=== PATIENT | female | born 1950 | race Caucasian/White ===

== ENCOUNTER → 2018-05-14 20:54 | Outpatient (REF) | payer MEDICARE, MEDICAID, SELFPAY ==
[2018-05-14 21:41] LABS: Absolute Basophil Count 0.06 k/cumm (0.0-0.2); Absolute Lymphocyte Count 1.84 k/cumm (1.2-3.4); Absolute Monocyte Count 0.78 k/cumm (0.11-0.7); Absolute Neutrophil Count 2.41 k/cumm (1.2-6.7); Basophils % 1.1; Eosinophils % 8.9; HCT 32.3 % (36.0-46.0); Lymphocytes % 32.9; Mean Corp. HGB Concentration 34.1 g/dL (32.0-36.0); Mean Corpuscular Hemoglobin 28.4 pg (27.0-33.0); Mean Corpuscular Volume 83.2 fL (80-95); Mean Platelet Volume 13.7 fL (8.0-11.0); Neutrophils % 43.1; Platelet Count 249 x1000/uL (130-400); RBC 3.88 m/cumm (4.00-5.20); RBC Distribution Width 15.6 % (11.7-14.6); White Blood Cell Count 5.59 k/cumm (4.4-10.8)
[2018-05-14 21:53] LABS: ALT 12 U/L (12-78); AST 17 U/L (15-37); Albumin 3.2 g/dL (3.4-5.0); Alkaline Phosphatase 233 U/L (46-116); Anion Gap 8.5 mmol/L (3-11); BUN 18 mg/dL (7-18); Bilirubin, Total 0.3 mg/dL (0.2-1.0); CO2 26.5 mmol/L (21.0-32.0); CREATININE 1.53 mg/dL (0.55-1.02); Calcium 8.3 mg/dL (8.5-10.1); Chloride 97 mmol/L (98-107); Cholesterol 233 mg/dL (50-200); Estimated GFR 33.75 (mL/min/1.73m2); Glucose 77 mg/dL (70-100); HDL Cholesterol 60 mg/dL (40-60); LDL CHOLESTEROL 144 mg/dL (<100); Magnesium 0.9 mg/dL (1.8-2.4); Potassium 4.5 mmol/L (3.5-5.1); Sodium 132 mmol/L (136-145); Total Protein 7.5 g/dL (6.4-8.2); Triglyceride 104 mg/dL (30-150)
[2018-05-19 13:24] LABS: Fentanyl Interpretation Positive.; Fentanyl by LC-MS/MS 16.3 ng/mL; Norfentanyl by LC-MS/MS 195.9 ng/mL
== END ==
LOC: NCHCN 20:54
PROVIDERS: PCP Physician Assistant Medical; Visit Provider Physician Assistant Medical
DX: D64.9 Anemia, unspecified (principal); I10 Essential (primary) hypertension; E83.42 Hypomagnesemia; I42.8 Other cardiomyopathies
CPT/HCPCS: 80048; 80053; 80061; 83721; 80354; 83735; 85025

== ENCOUNTER 2018-06-05 01:59 | Outpatient (RCR) | payer MEDICARE, MEDICAID, SELFPAY ==
[2018-05-29] MEDS: Normal Saline Flush 10 ML SYR IVP (08:48)
[2018-05-29] MEDS: MAGNESIUM SULFATE 4 GM/100 ML BAG IVPB (08:48)
[2018-06-05] MEDS: MAGNESIUM SULFATE 4 GM/100 ML BAG IVPB (09:00)
[2018-06-05] MEDS: Normal Saline Flush 10 ML SYR IVP (09:00)
== END 2018-06-16 23:59 | disposition home or self-care (01) ==
LOC: INF 01:59
PROVIDERS: PCP Physician Assistant Medical; Visit Provider Family Medicine
DX: E83.42 Hypomagnesemia (principal)
CPT/HCPCS: 96365; 96366; J3475

== ENCOUNTER 2018-06-24 10:01 | Outpatient (REF) | payer MEDICARE, MEDICAID, SELFPAY ==
[2018-06-24 20:40] LABS: Magnesium 1.8 mg/dL (1.8-2.4)
== END 2018-06-24 10:21 ==
LOC: NCHCN 10:01
PROVIDERS: PCP Physician Assistant Medical; Visit Provider Physician Assistant Medical
DX: E83.42 Hypomagnesemia (principal)
CPT/HCPCS: 83735

== ENCOUNTER 2018-11-11 00:25 | Outpatient (CLI) | payer MEDICARE, MEDICAID, SELFPAY ==
--- NOTE | 2018-11-11 10:30 | MERGE_ITS ---
*[facility]* *[facility]* [address] [place] [address] Date of study: 11/11/2018 Transthoracic Echocardiography M-mode, complete 2D, complete spectral Doppler, and color Doppler *STUDY CONCLUSIONS* Summary: 1. Left ventricle: The cavity size was normal. The estimated ejection fraction was 35%. Diffuse hypokinesis. The study is not technically sufficient to allow evaluation of LV diastolic function (mitral rign prosthesis). 2. Mitral valve: An annular ring prosthesis was present. There was moderate regurgitation. 3. Left atrium: The atrium was moderately dilated. 4. Right ventricle: The cavity size was normal. Wall thickness was normal. Pacer wire or catheter noted in right ventricle. Systolic function was normal. 5. Atrial septum: No defect or patent foramen ovale was identified. 6. Tricuspid valve: There was moderate-severe regurgitation. 7. Pulmonary arteries: Pulmonary systolic pressure was in the range of 40mm Hg to 50mm Hg. 8. Inferior vena cava: The vessel was patent and normal in size. The respirophasic diameter changes were in the normal range (greater than or equal to 50%), consistent with normal central venous pressure. *PATIENT PRESENTATION* Height: 152.4cm ((60in) ) S/D Pressure: 118 / 76 Weight: 50.8kg ((111.8lb) ) BSA: 1.47m^2 Test start time: 10:35 AM. Test stop time: 11:30 AM. PERFORMING Unknown PERFORMING [facility] CONSULTING Paula Vazquez FITNESS AND WELLNESS COORDINATOR Naty Galvan, (R)(CT), RD ORDERING Arturo iRcketts REFERRING Arturo Ricketts Ilana *PROCEDURE DATA* Procedure information: The patient was identified by two identifiers. This study was interpreted by [facility]. Pertinent images and digital data are archived for permanent storage and are available for subsequent review. Comparison was made to the study of 11/08/2016. Study status: Routine. Transthoracic echocardiography. M-mode, complete 2D, complete spectral Doppler, and color Doppler. A Transthoracic Echocardiogram was performed. Scanning was performed from the parasternal, apical, subcostal, and suprasternal notch acoustic windows. Images were obtained using an [id number] cardiac ultrasound machine. Image quality was adequate. Study completion: The patient tolerated the procedure well. History: PMH: Non ischemic CM. I 42.8. s/p myr 2008. *CARDIAC ANATOMY* Left ventricle: The cavity size was normal. The estimated ejection fraction was 35%. Diffuse hypokinesis. The study is not technically sufficient to allow evaluation of LV diastolic function (mitral rign prosthesis). Aortic valve: Trileaflet. Doppler: There was no stenosis. There was no regurgitation. VTI ratio of LVOT to aortic valve: 0.56. Valve area (VTI): 1.9cm^2. Indexed valve area (VTI): 1.3cm^2/m^2. Peak velocity ratio of LVOT to aortic valve: 0.55. Valve area (Vmax): 1.9cm^2. Indexed valve area (Vmax): 1.3cm^2/m^2. Mean velocity ratio of LVOT to aortic valve: 0.51. Valve area (Vmean): 1.8cm^2. Indexed valve area (Vmean): 1.2cm^2/m^2. Mean gradient (S): 2.4mm Hg. Peak gradient (S): 3.7mm Hg. Aorta: Aortic root: The aortic root was normal in size. Ascending aorta: The ascending aorta was normal in size. Mitral valve: An annular ring prosthesis was present. Doppler: There was no evidence for stenosis. There was moderate regurgitation. Valve area by pressure half-time: 2.8cm^2. Indexed valve area by pressure half-time: 1.9cm^2/m^2. Peak gradient (D): 7.6mm Hg. Left atrium: The atrium was moderately dilated. Atrial septum: No defect or patent foramen ovale was identified. Right ventricle: The cavity size was normal. Wall thickness was normal. Pacer wire or catheter noted in right ventricle. Systolic function was normal. Pulmonic valve: Doppler: There was no evidence for stenosis. There was no significant regurgitation. Tricuspid valve: Doppler: There was moderate-severe regurgitation. Pulmonary artery: Poorly visualized. Pulmonary systolic pressure was in the range of 40mm Hg to 50mm Hg. Right atrium: The atrium was normal in size. Pacer wire or catheter noted in right atrium. Pericardium: There was no pericardial effusion. Systemic veins: Inferior vena cava: Not well visualized. The vessel was patent and normal in size. The respirophasic diameter changes were in the normal range (greater than or equal to 50%), consistent with normal central venous pressure. Baseline ECG: Paced rhythm. Measurements Left ventricle Value 11/08/2016 Reference LV ID, ED, PLAX 5.1 cm 5.5 3.5 - 6.0 LV ID, ES, PLAX (H) 4.2 cm 4.3 2.1 - 4.0 LV PW thickness, ED, PLAX 0.8 cm 0.9 LV end-diastolic volume, 71 ml 1-p A2C LV ejection fraction, 1-p 29 % 41 A2C LV end-diastolic volume, 65 ml 1-p A4C LV ejection fraction, 1-p 45 % 38 A4C Ventricular septum Value 11/08/2016 Reference IVS thickness, ED, PLAX 0.5 cm LVOT Value 11/08/2016 Reference LVOT ID, A-P 2.1 cm 2.3 LVOT area 3.4 cm^2 4 LVOT peak velocity, S 0.53 m/sec 0.79 LVOT mean velocity, S 0.39 m/sec LVOT VTI, S 10.6 cm 15.7 LVOT peak gradient, S 1.1 mm Hg LVOT mean gradient, S 0.7 mm Hg 1.6 Stroke volume (SV), LVOT 36 ml DP Stroke index (SV/bsa), 25 ml/m^2 LVOT DP Aortic valve Value 11/08/2016 Reference Aortic valve peak 1 m/sec velocity, S Aortic valve mean 0.75 m/sec velocity, S Aortic valve VTI, S 19.0 cm Aortic mean gradient, S 2.4 mm Hg 4 Aortic peak gradient, S 3.7 mm Hg 7 VTI ratio, LVOT/AV 0.56 Aortic valve area, VTI 1.9 cm^2 Velocity ratio, peak, 0.55 LVOT/AV Aortic valve area, peak 1.9 cm^2 velocity Velocity ratio, mean, 0.51 LVOT/AV Aortic valve area, mean 1.8 cm^2 velocity Aortic valve area/bsa, 1.2 cm^2/m^2 mean velocity Aorta Value 11/08/2016 Reference Aortic root ID, ED 3.2 cm Ascending aorta ID, A-P, S 3.1 cm 3.1 Left atrium Value 11/08/2016 Reference LA ID, A-P, ES 4.2 cm LA ID/bsa, A-P (H) 2.9 cm/m^2 <=2.2 LA area, ES, A4C 21.8 cm^2 22 8.8 - 23.4 LA area, ES, A2C 23 cm^2 25 LA volume/bsa, ES, 1-p A4C 50 ml/m^2 47 LA volume, ES, 2-p 78 ml LA volume/bsa, ES, 2-p 53 ml/m^2 LA/aortic root ratio 1.33 1.35 Mitral valve Value 11/08/2016 Reference Mitral E-wave peak 1.38 m/sec 1.36 velocity Mitral A-wave peak 0.82 m/sec 1.19 velocity Mitral deceleration time (H) 269 ms 150 - 230 Mitral pressure half-time 78 ms 115 Mitral peak gradient, D 7.6 mm Hg 7.4 Mitral E/A ratio, peak 1.68 1.14 Mitral valve area, PHT, DP 2.8 cm^2 Tricuspid valve Value 11/08/2016 Reference Tricuspid regurg peak 3.1 m/sec 3.1 velocity Tricuspid peak RV-RA 39.2 mm Hg 38.9 gradient Right atrium Value 11/08/2016 Reference RA area, ES, A4C 16.3 cm^2 16 8.3 - 19.5 Legend: (L) and (H) benja values outside specified reference range. I have personally reviewed the images and have reviewed and edited the reported findings. Electronically signed by Huy Read MD 11/11/2018 16:00
== END 2018-11-11 00:45 ==
PROVIDERS: PCP Physician Assistant Medical; Visit Provider Nurse Practitioner Family
DX: I48.2 Chronic atrial fibrillation (principal); I42.8 Other cardiomyopathies; I08.1 Rheumatic disorders of both mitral and tricuspid valves; Z95.2 Presence of prosthetic heart valve
CPT/HCPCS: 93306

== ENCOUNTER → 2018-11-15 10:39 | Outpatient (BNVA) | payer MEDICARE, MEDICAID, SELFPAY | PROVIDERS: PCP Physician Assistant Medical; Visit Provider Internal Medicine Cardiovascular Disease | DX: I50.22 Chronic systolic (congestive) heart failure (principal); I34.0 Nonrheumatic mitral (valve) insufficiency; I42.0 Dilated cardiomyopathy; Z45.02 Encounter for adjustment and management of automatic implantable cardiac defibrillator; Z95.2 Presence of prosthetic heart valve | CPT/HCPCS: 93282; 99214 ==

== ENCOUNTER 2018-11-29 01:54 | Outpatient (CLI) | payer MEDICARE, MEDICAID, SELFPAY ==
--- NOTE | 2018-11-29 10:44 | DI.RAD_ITS ---
SYMPTOM/DIAGNOSIS: RT GROIN PAIN, R10.31, THORACOLUMBAR VERTEBRAL COMPRESSION FRACTURES, T14.8 THORACIC SPINE: Comparison is made with chest xray dated 04/20/17. A pacemaker, valve prosthesis and sternal wires are seen. There is stable severe compression fractures with high density material consistent with vertebroplasty in the left T 5 and T 7. T 1 through T 4, T 6 and T 10 vertebral bodies show normal height. There is a question of increase in the compression fractures of T 8 and T 9. There has been slight interval increase in compression of T 12. There is a new moderate compression fracture of approximately 50% of T 11. L 1 now shows a 50% compression fracture. There is a stable mild L 2 compression fracture. L 3 appears intact. IMPRESSION: New compression fractures as well as interval worsening of degree of compression of multiple vertebral bodies. PELVIS AND RIGHT HIP: The hip joint spaces are well maintained. There is mild bilateral acetabular spurring. There are mild degenerative changes of the SI joints. IMPRESSION: Mild degenerative changes.
== END 2018-11-29 02:14 ==
PROVIDERS: PCP Physician Assistant Medical; Visit Provider Physician Assistant Medical
DX: R10.31 Right lower quadrant pain (principal); M25.551 Pain in right hip; M16.11 Unilateral primary osteoarthritis, right hip; Z95.0 Presence of cardiac pacemaker; Z95.2 Presence of prosthetic heart valve; M48.55XD Collapsed vertebra, not elsewhere classified, thoracolumbar region, subsequent encounter for fracture with routine healing
CPT/HCPCS: 72072; 73502

== ENCOUNTER 2019-02-07 15:16 | Outpatient (REF) | payer MEDICARE, MEDICAID, SELFPAY ==
[2019-02-07 19:20] LABS: Absolute Basophil Count 0.07 k/cumm (0.0-0.2); Absolute Eosinophil Count 0.54 k/cumm (0.0-0.7); Absolute Lymphocyte Count 2.06 k/cumm (1.2-3.4); Absolute Monocyte Count 0.72 k/cumm (0.11-0.7); Absolute Neutrophil Count 3.01 k/cumm (1.2-6.7); Basophils % 1.1; Eosinophils % 8.4; HCT 34.2 % (36.0-46.0); HGB 11.7 g/dL (12.0-15.5); Lymphocytes % 32.2; Mean Corp. HGB Concentration 34.2 g/dL (32.0-36.0); Mean Corpuscular Hemoglobin 29.1 pg (27.0-33.0); Mean Corpuscular Volume 85.1 fL (80-95); Mean Platelet Volume 14.2 fL (8.0-11.0); Monocytes % 11.3; Platelet Count 255 x1000/uL (130-400); RBC 4.02 m/cumm (4.00-5.20); RBC Distribution Width 15.9 % (11.7-14.6)
[2019-02-07 19:27] LABS: Anion Gap 13.9 mmol/L (3-11); BUN 28 mg/dL (7-18); CO2 25.1 mmol/L (21.0-32.0); CREATININE 1.79 mg/dL (0.55-1.02); Calcium 9.1 mg/dL (8.5-10.1); Chloride 97 mmol/L (98-107); Estimated GFR 28.08 (mL/min/1.73m2); Glucose 88 mg/dL (70-100); Magnesium 1.3 mg/dL (1.8-2.4); Potassium 4.5 mmol/L (3.5-5.1); Sodium 136 mmol/L (136-145)
== END 2019-02-07 15:36 ==
LOC: NCHCN 15:16
PROVIDERS: PCP Physician Assistant Medical; Visit Provider Physician Assistant Medical
DX: N18.3 Chronic kidney disease, stage 3 (moderate) (principal); E83.42 Hypomagnesemia
CPT/HCPCS: 80048; 83735; 85025

== ENCOUNTER → 2019-02-25 10:34 | Outpatient (BNVA) | payer MEDICARE, MEDICAID, SELFPAY | PROVIDERS: PCP Physician Assistant Medical; Visit Provider Nurse Practitioner Family | DX: R69 Illness, unspecified (principal) ==

== ENCOUNTER 2019-02-25 11:57 | Outpatient (CLI) | payer MEDICARE, MEDICAID, SELFPAY | END 2019-02-25 12:17 | PROVIDERS: PCP Physician Assistant Medical; Visit Provider Nurse Practitioner Family | DX: I50.22 Chronic systolic (congestive) heart failure (principal); I34.0 Nonrheumatic mitral (valve) insufficiency; I42.0 Dilated cardiomyopathy; Z45.02 Encounter for adjustment and management of automatic implantable cardiac defibrillator; Z95.2 Presence of prosthetic heart valve | CPT/HCPCS: 93282; 93005; 93010; 99213 ==

== ENCOUNTER → 2019-03-13 13:41 | Outpatient (BNVA) | payer MEDICARE, MEDICAID, SELFPAY | PROVIDERS: PCP Physician Assistant Medical; Visit Provider Internal Medicine Cardiovascular Disease | DX: I50.22 Chronic systolic (congestive) heart failure (principal); Z98.890 Other specified postprocedural states; I34.0 Nonrheumatic mitral (valve) insufficiency; I42.8 Other cardiomyopathies; N18.3 Chronic kidney disease, stage 3 (moderate); Z45.018 Encounter for adjustment and management of other part of cardiac pacemaker | CPT/HCPCS: 93282; 99213 ==

== ENCOUNTER 2019-03-18 10:15 | Outpatient (CLI) | payer MEDICARE, MEDICAID, SELFPAY ==
[2019-03-18 11:47] LABS: Anion Gap 8.6 mmol/L (3-11); BUN 31 mg/dL (7-18); CO2 27.4 mmol/L (21.0-32.0); CREATININE 1.78 mg/dL (0.55-1.02); Calcium 8.4 mg/dL (8.5-10.1); Chloride 96 mmol/L (98-107); Estimated GFR 28.26 (mL/min/1.73m2); Glucose 77 mg/dL (70-100); Potassium 4.9 mmol/L (3.5-5.1); Sodium 132 mmol/L (136-145)
== END 2019-03-18 10:35 ==
PROVIDERS: PCP Physician Assistant Medical; Visit Provider Physician Assistant Medical
DX: E83.42 Hypomagnesemia (principal); E87.1 Hypo-osmolality and hyponatremia; N18.3 Chronic kidney disease, stage 3 (moderate)
CPT/HCPCS: 36415; 80048; 83735

== ENCOUNTER 2019-04-03 01:29 | Outpatient (RCR) | payer MEDICARE, MEDICAID, SELFPAY ==
[2019-03-27] MEDS: Normal Saline Flush 10 ML SYR IVP (08:13)
[2019-03-27] MEDS: MAGNESIUM SULFATE 4 GM/100 ML BAG IVPB (08:13)
[2019-04-03] MEDS: Normal Saline Flush 10 ML SYR IVP (08:52)
[2019-04-03] MEDS: MAGNESIUM SULFATE 4 GM/100 ML BAG IVPB (08:52)
[2019-04-03 08:53] VITALS: BP 118/87; PULSE 70; RESP 18; TEMP 36.2
== END 2019-04-16 23:59 | disposition home or self-care (01) ==
LOC: INF 01:29
PROVIDERS: PCP Physician Assistant Medical; Visit Provider Internal Medicine
DX: E83.42 Hypomagnesemia (principal); E87.1 Hypo-osmolality and hyponatremia; N18.3 Chronic kidney disease, stage 3 (moderate)
CPT/HCPCS: 96365; 96366; J3475

== ENCOUNTER 2019-04-11 20:30 | Outpatient (REF) | payer MEDICARE, MEDICAID, SELFPAY ==
[2019-04-11 20:35] LABS: Anion Gap 10.8 mmol/L (3-11); BUN 26 mg/dL (7-18); CO2 26.2 mmol/L (21.0-32.0); CREATININE 1.84 mg/dL (0.55-1.02); Calcium 9.7 mg/dL (8.5-10.1); Chloride 97 mmol/L (98-107); Glucose 85 mg/dL (70-100); Magnesium 1.9 mg/dL (1.8-2.4); Potassium 4.7 mmol/L (3.5-5.1); Sodium 134 mmol/L (136-145)
== END 2019-04-11 20:50 ==
LOC: NCHCN 20:30
PROVIDERS: PCP Physician Assistant Medical; Visit Provider Physician Assistant Medical
DX: E83.42 Hypomagnesemia (principal); I10 Essential (primary) hypertension
CPT/HCPCS: 80048; 83735

== ENCOUNTER 2019-04-29 04:43 | Inpatient (IN) | payer MEDICARE, MEDICAID, SELFPAY ==
[2019-04-29] VITALS (10 sets, daily range): BP systolic 95–144; BP diastolic 65–97; PULSE 78–101; RESP 16–28; TEMP 36–36.9; O2SAT 95–100
--- NOTE | 2019-04-29 05:02 | DI.RAD_ITS ---
SYMPTOM/DIAGNOSIS: FALL, LT HIP PAIN SUPINE AP CHEST: 04/29 The heart is enlarged. There is a transvenous cardiac pacemaker in position. Apparent left atrial clamp again noted in place. Vertebroplasties again noted. Lungs are clear and well expanded. CONCLUSION: No evidence of acute change.
--- NOTE | 2019-04-29 05:02 | DI.RAD_ITS ---
SYMPTOM/DIAGNOSIS: FALL, LT PAIN LEFT HIP: 04/29/19 Two views were obtained. There is a comminuted intertrochanteric fracture of the femur with marked varus angulation. No additional fracture seen on these limited views.
--- NOTE | 2019-04-29 05:05 | ED.GENADUL_ITS ---
Discharge Plan Disposition Patient Disposition: [facility] INPATIENT Condition: Stable Discharge Details Chief Complaint: Orthopedic Clinical Impression: Closed intertrochanteric fracture of left hip Primary Care Provider: Paula Vazquez ED Provider: Jamie Muniz Home Meds and New Rx's Prescriptions: No Action carvedilol 6.25 mg tablet 6.25 mg PO BID 90 Days Qty: 180 RF: 3 magnesium oxide 400 MG tablet 400 mg PO BID Qty: 180 RF: 3 furosemide 20 MG tablet 20 mg PO DAILY RF: 0 aspirin [Adult Low Dose Aspirin] 81 MG tablet,delayed release (DR/EC) 81 mg PO DAILY RF: 0 duloxetine [Cymbalta] 30 MG capsule,delayed release(DR/EC) 30 mg PO DAILY RF: 0 docusate sodium [Colace] 100 MG capsule 100 mg PO BID PRN PRNRF: 0 cholecalciferol (vitamin D3) 1,000 UNITS tablet 1,000 units PO DAILY RF: 0 potassium chloride 10 MEQ tablet extended release 10 meq PO DAILY RF: 0 fentanyl [Duragesic] 50 MCG patch 72 hour 62 mcg Transdermal Q72H RF: 0 lisinopril 5 MG tablet 5 mg PO DAILY Qty: 0 RF: 0 cyclobenzaprine 10 MG tablet 5 - 10 mg PO HS MDD 5-10 PRNQty: 15 RF: 0 esomeprazole magnesium 40 mg Capsule,Delayed Release(Dr/Ec) 40 mg PO DAILY RF: 0 Medical Decision Making 68-year-old female presents from home with left hip pain after trip and fall getting up to go to the bathroom. 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 She arrives in moderate distress, with normal vital signs. Exam is concerning for left hip fracture. Patient given additional aliquots of analgesic and referred for x-ray which reveals L intertrochanteric hip fracture. Patient comfortable following parenteral analgesia. Discussed with Dr Sheldon and Dr Schaeffer and patient to be admitted. Lab Data Lab results reviewed: Yes I reviewed the patient's lab results. Laboratory Results - last 24 hr 04/29/19 04/29/19 04/29/19 05:04 05:04 05:04 WBC 7.66 RBC 3.44 L Hgb 9.9 L Hct 28.6 L MCV 83.1 MCH 28.8 MCHC 34.6 RDW 15.7 H Plt Count 222 MPV 13.1 H Immature Gran % 0.1 Neutrophils % 58.1 Lymphocytes % 26.8 Monocytes % 8.1 Eosinophils % 6.1 Basophils % 0.8 Absolute Neutrophils 4.45 Absolute Lymphocytes 2.05 Absolute Monocytes 0.62 Absolute Eosinophils 0.47 Absolute Basophils 0.06 PT 10.2 INR 1.0 APTT 24.5 Sodium 137 Potassium 3.9 Chloride 103 Carbon Dioxide 24.5 Anion Gap 9.5 BUN 19 H Creatinine 1.40 H Estimated GFR/1.73 m2 37.28 Glucose 103 H Calcium 8.2 L Total Bilirubin 0.2 AST 9 L ALT 7 L Alkaline Phosphatase 204 H Troponin I < 0.05 Total Protein 6.7 Albumin 2.7 L Urine Color Urine Clarity Urine pH Ur Specific [place] Urine Protein Urine Ketones Urine Blood Urine Nitrite Urine Bilirubin Urine Urobilinogen Ur Leukocyte Esterase Urine Glucose Patient ABO/Rh Antibody Screen 04/29/19 04/29/19 05:04 06:10 WBC RBC Hgb Hct MCV MCH MCHC RDW Plt Count MPV Immature Gran % Neutrophils % Lymphocytes % Monocytes % Eosinophils % Basophils % Absolute Neutrophils Absolute Lymphocytes Absolute Monocytes Absolute Eosinophils Absolute Basophils PT INR APTT Sodium Potassium Chloride Carbon Dioxide Anion Gap BUN Creatinine Estimated GFR/1.73 m2 Glucose Calcium Total Bilirubin AST ALT Alkaline Phosphatase Troponin I Total Protein Albumin Urine Color Yellow Urine Clarity Clear Urine pH 6.5 Ur Specific [place] 1.015 Urine Protein Negative Urine Ketones Negative Urine Blood Trace-intact H Urine Nitrite Negative Urine Bilirubin Negative Urine Urobilinogen 0.2 Ur Leukocyte Esterase Negative Urine Glucose Negative Patient ABO/Rh O Positive Antibody Screen Negative ECG Data Attestation: I personally reviewed and interpreted this ECG (s) as follows: Interpretation: Normal sinus rhythm with a rate of 77, the QRS is narrow, there is nonspecific ST segment flattening throughout. HPI General Mode of arrival: EMS . Date/Time Provider Initiated Documentation: 04/29/19 04:59 . Limitations to Documentation: no limitations . Information obtained by: patient and EMS . History of Present Illness 68 year old F presents to the emergency department with the chief complaint of Trip and fall at home, left hip pain, Quality is described as dull and constant, and is localized to the left and lower extremity. Patient reports no radiation. Patient started experiencing this minute(s) and it has been constant. No relieving factors improve symptom(s), No exacerbating factors reported . Patient notes no other symptoms.. Patient did receive the following treatments prior to arrival, other (Fentanyl en route with EMS) Related Data Home Medications Medication Instructions Recorded Confirmed aspirin [Adult Low Dose Aspirin] 81 mg PO DAILY 02/07/13 04/29/19 duloxetine [Cymbalta] 30 mg PO DAILY 01/01/15 04/29/19 docusate sodium [Colace] 100 mg PO BID PRN PRN 03/31/16 04/29/19 cholecalciferol (vitamin D3) 1,000 units PO DAILY 11/03/16 04/29/19 magnesium oxide 400 mg PO BID #180 tab-cap 11/04/16 04/29/19 potassium chloride 10 meq PO DAILY 11/11/16 03/13/19 fentanyl [Duragesic] 62 mcg TRANSDERMAL Q72H 11/13/16 04/29/19 lisinopril 5 mg PO DAILY #0 11/15/16 04/29/19 furosemide 20 mg PO DAILY tab-cap 03/27/18 04/29/19 carvedilol 6.25 mg tablet 6.25 mg PO BID 90 Days #180 tab 11/15/18 04/29/19 cyclobenzaprine 5 - 10 mg PO HS PRN #15 tab MDD 04/29/19 04/29/19 5-10 esomeprazole magnesium 40 mg PO DAILY 04/29/19 04/29/19 Previous Rx's Medication Instructions Recorded lisinopril 5 mg PO DAILY #0 11/15/16 carvedilol 6.25 mg tablet 6.25 mg PO BID 90 Days #180 tab 11/15/18 cyclobenzaprine 5 - 10 mg PO HS PRN #15 tab MDD 04/29/19 5-10 Allergies Allergy/AdvReac Type Severity Reaction Status Date / Time oxycodone Allergy Mild Unverified 04/29/19 05:35 aripiprazole [From Abilify] Allergy Unverified 03/13/19 13:54 codeine AdvReac Mild vomiting Unverified 03/13/19 13:54 acetaminophen [From Tylenol] AdvReac Unverified 03/13/19 13:54 General Stated Complaint: Orthopedic SHY: 3 Review of Systems Review of Systems Denies chest pain or palpitations. No other injury. 6 systems reviewed and otherwise negative [facility] Medical History Chronic systolic CHF (congestive heart failure) (Chronic) Dilated cardiomyopathy (Chronic) ICD (implantable cardioverter-defibrillator) in place (Chronic) Mitral regurgitation (Chronic) Surgical History History of mitral valve repair (Chronic) Social History Smoking/Tobacco Use Status: Current every day Alcohol Intake: former Drug use: Never Do you feel safe at home: Yes Do you feel safe in your relationship?: Yes Exam Narrative Exam Narrative: GEN: awake, alert, oriented 3. Pleasant, well groomed, interactive. HEAD: Normocephalic, atraumatic ENT: Mucous membranes moist, oropharynx unremarkable, External ear exam unremarkable EYES: PERRL, EOMI NECK: Full ROM, no CHRIS, no menigismus CHEST/RESP: Nontender, clear to auscultation bilateral, no wheeze/rhonchi/rales CARDIOVASCULAR: RRR, no murmur, rub alf. 2+ Rad pulse bilateral ABDOMEN: Soft, nontender, no mass. +Bowel sounds EXT: Left lower extremity held in flexion, tender overlying the lateral left hip and with movement. 1+ dorsalis pedis bilaterally, sensation intact. Neuro: Grossly normal neurologic exam, conversant, interactive. Psych: Speech fluent, thoughts congruent, affect normal Course Vital Signs Temperature 36.4 C L 04/29/19 04:46 Pulse 78 04/29/19 04:46 Respiratory Rate 16 04/29/19 04:46 Blood Pressure 122/87 04/29/19 04:46 Pulse Oximetry 95 04/29/19 04:46 Temperature 36.4 C L 04/29/19 04:46 Temperature Source Skin 04/29/19 04:46 Pulse 78 04/29/19 04:46 Respiratory Rate 16 04/29/19 04:46 Respiratory Effort Non-Labored 04/29/19 04:51 Blood Pressure 122/87 04/29/19 04:46 Blood Pressure Position Supine 04/29/19 04:46 Pulse Oximetry 95 04/29/19 04:46 Oxygen Delivery Method Room Air 04/29/19 04:46 Oxygen Flow Rate 0 04/29/19 04:46
[2019-04-29] MEDS: Normal Saline 1,000 ML 150 ML IV (05:20)
[2019-04-29] MEDS: HYDROmorphone 2 MG/ML VIAL 0.5 MG IVP ×2 (05:20→08:55)
[2019-04-29 05:32] LABS: Abs Immature Grans 0.01 k/cumm (0.0-0.09); Absolute Basophil Count 0.06 k/cumm (0.0-0.2); Absolute Eosinophil Count 0.47 k/cumm (0.0-0.7); Absolute Lymphocyte Count 2.05 k/cumm (1.2-3.4); Absolute Monocyte Count 0.62 k/cumm (0.11-0.7); Absolute Neutrophil Count 4.45 k/cumm (1.2-6.7); Basophils % 0.8; Eosinophils % 6.1; HCT 28.6 % (36.0-46.0); HGB 9.9 g/dL (12.0-15.5); Immature Grans % 0.1; Lymphocytes % 26.8; Mean Corp. HGB Concentration 34.6 g/dL (32.0-36.0); Mean Corpuscular Hemoglobin 28.8 pg (27.0-33.0); Mean Corpuscular Volume 83.1 fL (80-95); Mean Platelet Volume 13.1 fL (8.0-11.0); Monocytes % 8.1; Neutrophils % 58.1; Platelet Count 222 x1000/uL (130-400); RBC 3.44 m/cumm (4.00-5.20); RBC Distribution Width 15.7 % (11.7-14.6); White Blood Cell Count 7.66 k/cumm (4.4-10.8)
[2019-04-29] MEDS: HYDROmorphone 2 MG/ML VIAL (05:41)
[2019-04-29 05:42] LABS: PTT Activated 24.5 sec (21.0-31.4); Prothrombin Time 10.2 sec (9.3-11.0)
[2019-04-29 05:49] LABS: ALT 7 U/L (12-78); AST 9 U/L (15-37); Albumin 2.7 g/dL (3.4-5.0); Alkaline Phosphatase 204 U/L (46-116); Anion Gap 9.5 mmol/L (3-11); BUN 19 mg/dL (7-18); Bilirubin, Total 0.2 mg/dL (0.2-1.0); CO2 24.5 mmol/L (21.0-32.0); Calcium 8.2 mg/dL (8.5-10.1); Chloride 103 mmol/L (98-107); Estimated GFR 37.28 (mL/min/1.73m2); Glucose 103 mg/dL (70-100); Potassium 3.9 mmol/L (3.5-5.1); Sodium 137 mmol/L (136-145); Total Protein 6.7 g/dL (6.4-8.2); Troponin I < 0.05 ng/mL (0.00-0.06)
--- NOTE | 2019-04-29 06:15 | NUR.NOTE ---
Nursing Note: Patients fentanyl patches removed (50mcg and 12 mcg) from right upper arm and placed in waste witnessed by Yvonne YBARRA.
[2019-04-29 06:19] LABS: Bilirubin Negative (Negative); Blood Trace-intact (Negative); Clarity Clear (Clear); Glucose Negative (Negative); Ketones Negative (Negative); Leukocyte Esterase Negative (Negative); Nitrite Negative (Negative); Specific Gravity 1.015 (1.005-1.025); Urobilinogen 0.2 EU/dL (Up TO 0.2); pH 6.5 (5-8)
[2019-04-29 06:30] LABS: Bacteria Rare HPF (Negative); C & S Indicated? No; Casts Negative LPF (Negative); Crystals Negative HPF (Negative); Epithelial Cells Rare HPF (Negative); Mucus Negative (Negative); RBC 0-2 (0-2); WBC Negative HPF (0-5)
[2019-04-29] MEDS: fentaNYL 12 MCG PATCH TD (11:33)
[2019-04-29] MEDS: fentaNYL 50 MCG PATCH TD (11:33)
[2019-04-29 11:48] LABS: Creatine Kinase 37 U/L (26-192)
--- NOTE | 2019-04-29 12:51 | W.PM.HP.N ---
Date of service: 04/29/19 Time of Service: 12:52 Assessment and Plan (1) Closed left hip fracture: Current visit: Yes Status: Acute post mechanical fall. Patient is moderate to high risk for general anesthesia, but spinal anesthesia is reasonable. Planned for OR today. Pain control with home fentanyl patches and IV dilaudid. Provide IS. [place]. (2) Chronic systolic CHF (congestive heart failure): Current visit: No Status: Chronic S/p AICD. EF as above. I decreased fluid rate to 75 cc/hr. Monitor volume status carefully. I/O's/daily weights. (3) Osteoporosis: Current visit: Yes Status: Chronic Continue vitamin D supplementation Add calcium. (4) Mitral regurgitation: Current visit: No Status: Chronic Discussed with anesthesia - spinal anesthesia is preferred (5) Chronic kidney disease, stage 3: Current visit: No Status: Acute Monitor Cr/I/O's (6) DVT prophylaxis: Current visit: Yes Status: Acute Defer to orthopedics (7) Discharge planning issues: Current visit: Yes Status: Acute Full code History of Present Illness Chief Complaint: I fell and broke my hip Narrative: Ms Castillo is a 68 year old female with PMHx of dilated [employer]IC[employer])/chronic systolic CHF (last EF 25-30%), s/p AICD (last shock for VT/VF in 2017 in setting of hypomagnesemia), mitral regurgitaiton post Mitral valve repair, moderate to severe tricuspid regurgitation, moderate pulmonary hypertension, in addition to osteoporosis and CKD 3, who stepped onto a dog toy while returning to bed from the bathroom at 3 am this morning and fell backwards and onto her left side, hitting her head and hearing a crack in her leg. When she arrived to the ED, she was found to have a L femoral fracture. At this time, her pain is uncontrolled. Her head is not bothering her and she declined to have a CT of her head. States she hasn't had any chest pain, shortness of breath, palpitations, dizziness, blurred vision. Review of Systems Review of Systems 12 systems reviewed. Pertinent positives and negatives are as per HPI. [facility] Medical History (Updated 04/29/19 @ 13:26 by Jayashree Alaniz MD) Cardiomyopathy, nonischemic (Acute) Chronic kidney disease, stage 3 (Acute) Chronic systolic CHF (congestive heart failure) (Chronic) Compression fracture of lumbar vertebra (Acute) Dilated cardiomyopathy (Chronic) Mitral regurgitation (Chronic) Osteoporosis (Chronic) Surgical History (Updated 04/29/19 @ 13:11 by Jayashree Alaniz MD) History of mitral valve repair (Chronic) ICD (implantable cardioverter-defibrillator) in place (Chronic) Family History (Updated 04/29/19 @ 13:14 by Jayashree Alaniz MD) Mother Heart disease Brother Heart disease Maternal Uncle Heart disease Maternal Uncle Diabetes Father Hypertension Prostate cancer Social History (Updated 04/29/19 @ 13:15 by Jayashree Alaniz MD) Smoking/Tobacco Use Status: Former Tobacco Use Pack-years: 4 Tobacco: How many years used: 7 Alcohol Intake: former Drug use: Never Do you feel safe at home: Yes Do you feel safe in your relationship?: Yes Meds Home Medications Medication Instructions Recorded Confirmed Type aspirin [Adult Low Dose Aspirin] 81 mg PO DAILY 02/07/13 04/29/19 History duloxetine [Cymbalta] 30 mg PO DAILY 01/01/15 04/29/19 History docusate sodium [Colace] 100 mg PO BID PRN PRN 03/31/16 04/29/19 History cholecalciferol (vitamin D3) 1,000 units PO DAILY 11/03/16 04/29/19 History magnesium oxide 400 mg PO BID #180 tab-cap 11/04/16 04/29/19 History potassium chloride 10 meq PO DAILY 11/11/16 03/13/19 History fentanyl [Duragesic] 62 mcg TRANSDERMAL Q72H 11/13/16 04/29/19 History lisinopril 5 mg PO DAILY #0 11/15/16 04/29/19 Rx furosemide 20 mg PO DAILY tab-cap 03/27/18 04/29/19 History carvedilol 6.25 mg tablet 6.25 mg PO BID 90 Days #180 tab 11/15/18 04/29/19 Rx cyclobenzaprine 5 - 10 mg PO HS PRN #15 tab MDD 04/29/19 04/29/19 Rx 5-10 esomeprazole magnesium 40 mg PO DAILY 04/29/19 04/29/19 History Allergies Allergy/AdvReac Type Severity Reaction Status Date / Time oxycodone Allergy Mild Unverified 04/29/19 05:35 aripiprazole [From Abilify] Allergy Unverified 03/13/19 13:54 codeine AdvReac Mild vomiting Unverified 03/13/19 13:54 acetaminophen [From Tylenol] AdvReac Unverified 03/13/19 13:54 Exam Narrative Exam Narrative: General: very pleasant elderly female, appears to be in good spirits, A&Ox3, laying uncomfortably in bed Neuro: A&Ox3; L facial droop is her baseline, no focal deficits Psychiatric: appropriate speech pattern/content Skin: visible skin intact HEENT: Atraumatic, normocephalic, EOMI, dry MM, clear oropharynx, dentures, no submandibular or cervical lymphadenopathy, no goiter or JVD Heart: RRR, no m/r/g Lungs: CTAB GI: abdomen is soft, nontender, nondistended Extremities: no e/c/c; guarding L hip, +1 pedal pulses B Results Imaging Additional studies: CXR: No evidence of acute change. XR L hip: Two views were obtained. There is a comminuted intertrochanteric fracture of the femur with marked varus angulation. No additional fracture seen on these limited views. EKG: NSR, HR 77, nonspecific ST-T changes Labs : 04/29/19 05:04 04/29/19 05:04 Laboratory Results - last 24 hr 04/29/19 04/29/19 04/29/19 05:04 05:04 05:04 WBC 7.66 RBC 3.44 L Hgb 9.9 L Hct 28.6 L MCV 83.1 MCH 28.8 MCHC 34.6 RDW 15.7 H Plt Count 222 MPV 13.1 H Immature Gran % 0.1 Neutrophils % 58.1 Lymphocytes % 26.8 Monocytes % 8.1 Eosinophils % 6.1 Basophils % 0.8 Absolute Neutrophils 4.45 Absolute Lymphocytes 2.05 Absolute Monocytes 0.62 Absolute Eosinophils 0.47 Absolute Basophils 0.06 PT 10.2 INR 1.0 APTT 24.5 Sodium 137 Potassium 3.9 Chloride 103 Carbon Dioxide 24.5 Anion Gap 9.5 BUN 19 H Creatinine 1.40 H Estimated GFR/1.73 m2 37.28 Glucose 103 H Calcium 8.2 L Total Bilirubin 0.2 AST 9 L ALT 7 L Alkaline Phosphatase 204 H Creatine Kinase 37 Troponin I < 0.05 Total Protein 6.7 Albumin 2.7 L Urine Color Urine Clarity Urine pH Ur Specific [place] Urine Protein Urine Ketones Urine Blood Urine Nitrite Urine Bilirubin Urine Urobilinogen Ur Leukocyte Esterase Urine RBC Urine WBC Ur Epithelial Cells Urine Crystals Urine Bacteria Urine Casts Urine Mucus Ur Culture Indicated? Urine Glucose Patient ABO/Rh Antibody Screen 04/29/19 04/29/19 05:04 06:10 WBC RBC Hgb Hct MCV MCH MCHC RDW Plt Count MPV Immature Gran % Neutrophils % Lymphocytes % Monocytes % Eosinophils % Basophils % Absolute Neutrophils Absolute Lymphocytes Absolute Monocytes Absolute Eosinophils Absolute Basophils PT INR APTT Sodium Potassium Chloride Carbon Dioxide Anion Gap BUN Creatinine Estimated GFR/1.73 m2 Glucose Calcium Total Bilirubin AST ALT Alkaline Phosphatase Creatine Kinase Troponin I Total Protein Albumin Urine Color Yellow Urine Clarity Clear Urine pH 6.5 Ur Specific [place] 1.015 Urine Protein Negative Urine Ketones Negative Urine Blood Trace-intact H Urine Nitrite Negative Urine Bilirubin Negative Urine Urobilinogen 0.2 Ur Leukocyte Esterase Negative Urine RBC 0-2 Urine WBC Negative Ur Epithelial Cells Rare Urine Crystals Negative Urine Bacteria Rare Urine Casts Negative Urine Mucus Negative Ur Culture Indicated? No Urine Glucose Negative Patient ABO/Rh O Positive Antibody Screen Negative Last Vital Signs Temp 36.4 C L 04/29/19 04:46 Pulse 78 04/29/19 04:46 Resp 16 04/29/19 04:46 BP 122/87 04/29/19 04:46 Pulse Ox 95 04/29/19 04:46
[2019-04-29 13:05] LABS: Troponin I < 0.05 ng/mL (0.00-0.06)
--- NOTE | 2019-04-29 13:31 | DI.RAD_ITS ---
SYMPTOMS/DIAGNOSIS: LEFT HIP FX C-ARM FLUOROSCOPY OF THE LEFT HIP: Fluoroscopy Time: 95.7 Fluoroscopy was provided in the OR for Dr. Sheldon. Hardcopy images show placement of hardware for fracture fixation. The alignment appears anatomic.
[2019-04-29] MEDS: HYDROmorphone 2 MG/ML VIAL IVP ×2 (13:36→17:15)
[2019-04-29] MEDS: Lactated Ringers 1,000 ML 80 ML IV (14:25)
[2019-04-29] MEDS: Tranexamic Acid 1,000 MG/10 ML VIAL 1000 MG (16:22)
--- NOTE | 2019-04-29 17:48 | ROE_ITS ---
DATE OF PROCEDURE: April 29, 2019 PREOPERATIVE DIAGNOSIS: Intertrochanteric fracture, left femur. POSTOPERATIVE DIAGNOSIS: Intertrochanteric fracture, left femur. PROCEDURE: Open reduction and internal fixation of intertrochanteric fracture of the left femur usshama g trochanteric femoral nail device. ANESTHESIA: General, Donn Bragg CRNA SURGEON: Jamie Sheldon M.D. ACCELERATOR OPERATOR: Tino Sotelo INDICATIONS: This is a 68-year-old white female who tripped and fell in her home going to the [facility] early this morning, falling from a standing height onto her left hip. She was seen in the Emergen cy Room where x-rays revealed a displaced comminuted intertrochanteric fracture of the left femur. F racture pattern suggested that a trochanteric femoral nail device would be the best device for fixati on due to comminution of the greater trochanter. I recommended to the patient that she have her frac ture fixed to relieve her pain and prevent the complications of prolonged recumbency. The risks and complications of the procedure were explained to the patient in detail preoperatively. She wished to have me proceed as soon as possible to fix her hip fracture. She was preoperatively cleared by the hospitalist, Dr. Alaniz, and although an increased risk, was felt to be an acceptable risk for surgery . PROCEDURE: The patient was taken to the Operating Room in the afternoon on 04/29/19. A spinal anesth etic was attempted but was unsuccessful. She was therefore given a general anesthetic. Once good an esthesia was obtained, she was placed supine on the fracture table in single-leg traction on the left . The left lower extremity was prepped from pelvis to below the knee and draped in the usual sterile fashion. A longitudinal incision was made beginning just distal to the tip of the trochanter and extending pro ximally about four inches. Localization of the incision was determined with the help of the C-arm. The incision was carried down through the skin and subcu to the iliotibial band and abductor fascia. The IT band and abductor fascia were longitudinally incised. Blunt dissection with my finger was us ed to determine the tip of the greater trochanter. With the help of C-arm image intensification, the guide pin was placed at the tip of the trochanter and just medial to it. There was no resistance fr om the bone because of the comminution, and so I was actually able to place the guide pin by hand thr ough the fractured trochanter and down the shaft of the femur, distal to the lesser trochanter. A on e step reamer was placed over the guide pin and reaming was done for the proximal portion of the nail . A long guide pin was then placed down the femoral canal to the distal femur. The length of the pr oposed nail was determined with the help of the measuring device and the nail. A 360 mm long nail, 1 1 mm diameter was selected as the proper nail. Serial reaming was performed in 0.5 mm increments up to 13 mm. The insertional handle was then applied to the nail and the selected nail, 360 mm long, 11 mm diameter, was then placed by hand down the femoral canal. The C-arm was used to determine when t he nail was fully seated. The nail position was adjusted and using the outrigger guide on the insert ion handle, I made a stab wound on the skin and through the subcu and IT band and muscle directly to the femoral cortex. The drill sleeve was advanced until it contacted the lateral cortex. The positi on of the nail was adjusted so that the guide pin entered in the center of the femoral head on the AP view. I advanced the guide pin until it was within 10 mm of the subchondral bone of the femoral hea d. I then checked the lateral position and the guide pin was in the center of the femoral head on th e lateral position as well. I then used a cannulated reamer just to ream the lateral cortex. A saturnino ulated spiral blade, 90 mm, was selected after measuring length from the guide pin. The spiral blade was then inserted and impacted into place until it fully seated. The guide pin was removed. The sp iral blade was locked using a flexible screwdriver and after it was fully locked, I backed off a half turn to allow the spiral blade to slide. I then removed the outrigger device. C-arm image intensif ier final check on AP and lateral views shows the spiral blade in good position, fracture nicely redu dora. Once again I used the C-arm to make an incision over the distal locking screws. I was able to place one locking screw through the oblong hole in the distal plate using a freehand technique. A 40 mm lo cking bolt was selected. At this point tranexamic acid and saline was irrigated into all the incisio ns. The incisional margins were then infiltrated with 0.5% Marcaine with an epinephrine solution. T he stab wound for the distal locking screw was closed with simple interrupted #4-0 Nylon suture. Th e stab wound for the spiral blade and the incision for the nail was closed in layers. The IT band an d abductor fascia were approximated with interrupted [id number] sutures of #1 Vicryl suture mate rial. The subcu was approximated with interrupted #2-0 Vicryl sutures. The skin edges were approxim ated with skin veronica. The distal wound in the thigh was dressed with Xeroform gauze, sterile gauze 4x4's and wrapped with a 4-inch ASHWINI bandage for light compression. The proximal incisions were dres sed with Xeroform gauze, sterile gauze 4x4's, ABD pad and taped with paper tape. The patient tolerat ed the procedure well without complications. Her anesthesia was reversed without complication. Albina mated blood loss was 60 cc's. The patient was discharged to recovery in good condition.
[2019-04-29] MEDS: Ketorolac 15 MG/ML VIAL IVP (18:36)
[2019-04-29] MEDS: Normal Saline Flush 10 ML SYR IVP (18:37)
[2019-04-29] MEDS: Carvedilol 6.25 MG TAB PO (20:36)
[2019-04-29] MEDS: Calcium Carbonate 1.25 GM TAB PO (20:36)
[2019-04-29] MEDS: Magnesium Oxide 400 MG TAB PO (20:36)
[2019-04-29] MEDS: Mylanta Suspension 30 ML CUP PO (20:54)
[2019-04-30] VITALS (14 sets, daily range): BP systolic 94–129; BP diastolic 60–78; PULSE 75–104; RESP 16–20; TEMP 36.6–37.6; O2SAT 94–98
[2019-04-30] MEDS: Ketorolac 15 MG/ML VIAL IVP ×4 (01:00→17:54)
[2019-04-30] MEDS: Lactated Ringers 1,000 ML 100 ML IV (02:07)
[2019-04-30 07:26] LABS: Abs Immature Grans 0.01 k/cumm (0.0-0.09); Absolute Basophil Count 0.02 k/cumm (0.0-0.2); Absolute Eosinophil Count 0.01 k/cumm (0.0-0.7); Absolute Lymphocyte Count 1.62 k/cumm (1.2-3.4); Absolute Monocyte Count 1.14 k/cumm (0.11-0.7); Absolute Neutrophil Count 6.85 k/cumm (1.2-6.7); Basophils % 0.2; Eosinophils % 0.1; HCT 22.5 % (36.0-46.0); HGB 7.7 g/dL (12.0-15.5); Immature Grans % 0.1; Lymphocytes % 16.8; Mean Corp. HGB Concentration 34.2 g/dL (32.0-36.0); Mean Corpuscular Hemoglobin 28.5 pg (27.0-33.0); Mean Corpuscular Volume 83.3 fL (80-95); Mean Platelet Volume 13.3 fL (8.0-11.0); Monocytes % 11.8; Platelet Count 176 x1000/uL (130-400); RBC Distribution Width 15.1 % (11.7-14.6); White Blood Cell Count 9.65 k/cumm (4.4-10.8)
[2019-04-30 07:42] LABS: Anion Gap 7.8 mmol/L (3-11); BUN 18 mg/dL (7-18); CO2 26.2 mmol/L (21.0-32.0); CREATININE 1.18 mg/dL (0.55-1.02); Calcium 8.4 mg/dL (8.5-10.1); Chloride 104 mmol/L (98-107); Estimated GFR 45.42 (mL/min/1.73m2); Glucose 107 mg/dL (70-100); Magnesium 1.5 mg/dL (1.8-2.4); Potassium 4.3 mmol/L (3.5-5.1); Sodium 138 mmol/L (136-145)
[2019-04-30 07:45] LABS: Diff Comment RBC Morph Reviewed
[2019-04-30 07:46] LABS: Poikilocytes 2+
[2019-04-30] MEDS: Calcium Carbonate 1.25 GM TAB PO ×2 (07:51→20:29)
[2019-04-30] MEDS: Aspirin E.C. 81 MG TABEC PO (07:51)
[2019-04-30] MEDS: Magnesium Oxide 400 MG TAB PO ×2 (07:51→20:29)
[2019-04-30] MEDS: Cholecalciferol (Vitamin D3) 1,000 UNIT TAB 1000 UNITS PO (07:51)
[2019-04-30] MEDS: Carvedilol 6.25 MG TAB PO ×2 (07:51→20:29)
[2019-04-30] MEDS: Esomeprazole 40 MG CAPCR PO (07:51)
[2019-04-30] MEDS: DULoxetine 30 MG CAP PO (07:51)
[2019-04-30] MEDS: Lisinopril 5 MG TAB PO (07:51)
[2019-04-30] MEDS: HYDROmorphone 2 MG TAB PO (08:04)
--- NOTE | 2019-04-30 10:28 | W.PM.PROGNOT ---
Date of Service Date of service: 04/30/19 Time of Service: 10:29 Assessment and Plan (1) Closed left hip fracture: Current visit: Yes Status: Acute s/p ORIF, patient doing well following surgery (2) Chronic kidney disease, stage 3: Current visit: No Status: Acute Cr improved from yesterday, will hold further IVF given reduced EF and she is taking PO (3) Anemia: Current visit: Yes Status: Chronic hgb 7.7 today, acute drop may be due to surgery, she does have moderate bruising. will repeat afternoon hgb and transfuse < 7 Subjective Interval history since last seen: Patient underwent ORIF of L hip yesterday, tolerated procedure without difficulty. pain is controlled. she is eating and drinking. feels a bit constipated. she will work with PT today. s Exam Narrative Exam Narrative: GEN: NAD, elderly lady, lying in bed HEENT: NCAT, MMM CV: RRR, nl s1 and s2 LUNGS: CTAB, no W/R/R ABD: hypoactive BS, soft, NT, ND EXT: symmetrical no edema SKIN: bruising over left patellar region and visible part of thigh, bande over thigh/hip CDI NEURO: motion of LLE limited by pain, hip in flexion, sensation intact Objective Objective Clinical Data: Abnormal lab results 04/30/19 04/30/19 Range/Units 06:50 06:50 RBC 2.70 L (4.00-5.20) m/cumm Hgb 7.7 L D (12.0-15.5) g/dL Hct 22.5 L D (36.0-46.0) % RDW 15.1 H (11.7-14.6) % MPV 13.3 H (8.0-11.0) fL Absolute Neutrophils 6.85 H (1.2-6.7) k/cumm Absolute Monocytes 1.14 H (0.11-0.7) k/cumm Creatinine 1.18 H (0.55-1.02) mg/dL Glucose 107 H (70-100) mg/dL Calcium 8.4 L (8.5-10.1) mg/dL Magnesium 1.5 L (1.8-2.4) mg/dL Vital Signs Temperature 36.6 C 04/30/19 07:45 Temperature Source Tympanic 04/30/19 07:45 Pulse 104 H 04/30/19 07:45 Pulse Rhythm Irregular 04/29/19 20:35 Respiratory Rate 17 04/30/19 07:45 Respiratory Effort 04/29/19 20:35 Respiratory Depth Normal 04/29/19 20:35 Respiratory Pattern Normal 04/29/19 20:35 Blood Pressure 110/77 04/30/19 07:45 Blood Pressure Position Supine 04/29/19 04:46 Pulse Oximetry 97 04/30/19 07:45 Respiratory End-tidal CO2 27 04/29/19 17:30 Oxygen Delivery Method Room Air 04/30/19 07:45 Oxygen Flow Rate 0 04/30/19 07:45 Pain Level 6 04/30/19 08:04 Intake & Output 04/29/19 04/29/19 04/30/19 11:59 23:59 11:59 Intake Total 432 / 432 1068 / 1068 Output Total 900 / 900 200 / 200 Balance -468 / -468 868 / 868 Weight 45.359 kg 45.359 kg 48.5 kg Intake: IV 432 / 432 568 / 568 Oral 500 / 500 Output: Urine 900 / 900 200 / 200 Other: Urine Color Pale Yellow Straw Yellow Urine Appearance Clear Clear Urine Odor Normal Voiding Methods Indwelling Catheter Laboratory Results WBC 9.65 k/cumm (4.4-10.8) 04/30/19 06:50 RBC 2.70 m/cumm (4.00-5.20) L 04/30/19 06:50 Hgb 7.7 g/dL (12.0-15.5) L D 04/30/19 06:50 Hct 22.5 % (36.0-46.0) L D 04/30/19 06:50 MCV 83.3 fL (80-95) 04/30/19 06:50 MCH 28.5 pg (27.0-33.0) 04/30/19 06:50 MCHC 34.2 g/dL (32.0-36.0) 04/30/19 06:50 RDW 15.1 % (11.7-14.6) H 04/30/19 06:50 Plt Count 176 x1000/uL (130-400) 04/30/19 06:50 MPV 13.3 fL (8.0-11.0) H 04/30/19 06:50 Immature Gran % 0.1 04/30/19 06:50 71.0 04/30/19 06:50 16.8 04/30/19 06:50 11.8 04/30/19 06:50 0.1 04/30/19 06:50 0.2 04/30/19 06:50 Absolute Neutrophils 6.85 k/cumm (1.2-6.7) H 04/30/19 06:50 Absolute Lymphocytes 1.62 k/cumm (1.2-3.4) 04/30/19 06:50 Absolute Monocytes 1.14 k/cumm (0.11-0.7) H 04/30/19 06:50 Absolute Eosinophils 0.01 k/cumm (0.0-0.7) 04/30/19 06:50 Absolute Basophils 0.02 k/cumm (0.0-0.2) 04/30/19 06:50 Rbc morph reviewed 04/30/19 06:50 RBC Morphology See below 04/30/19 06:50 2+ 04/30/19 06:50 PT 10.2 sec (9.3-11.0) 04/29/19 05:04 INR 1.0 (0.9-1.1) 04/29/19 05:04 APTT 24.5 sec (21.0-31.4) 04/29/19 05:04 Sodium 138 mmol/L (136-145) 04/30/19 06:50 Potassium 4.3 mmol/L (3.5-5.1) 04/30/19 06:50 Chloride 104 mmol/L (98-107) 04/30/19 06:50 Carbon Dioxide 26.2 mmol/L (21.0-32.0) 04/30/19 06:50 7.8 mmol/L (3-11) 04/30/19 06:50 BUN 18 mg/dL (7-18) 04/30/19 06:50 1.18 mg/dL (0.55-1.02) H 04/30/19 06:50 45.42 (mL/min/1.73m2) 04/30/19 06:50 Glucose 107 mg/dL (70-100) H 04/30/19 06:50 Calcium 8.4 mg/dL (8.5-10.1) L 04/30/19 06:50 Magnesium 1.5 mg/dL (1.8-2.4) L 04/30/19 06:50 0.2 mg/dL (0.2-1.0) 04/29/19 05:04 AST 9 U/L (15-37) L 04/29/19 05:04 ALT 7 U/L (12-78) L 04/29/19 05:04 204 U/L (46-116) H 04/29/19 05:04 37 U/L (26-192) 04/29/19 05:04 < 0.05 ng/mL (0.00-0.06) 04/29/19 12:25 6.7 g/dL (6.4-8.2) 04/29/19 05:04 2.7 g/dL (3.4-5.0) L 04/29/19 05:04 Yellow (Yellow) 04/29/19 06:10 Clear (Clear) 04/29/19 06:10 6.5 (5-8) 04/29/19 06:10 Ur Specific [place] 1.015 (1.005-1.025) 04/29/19 06:10 Negative mg/dL (Negative) 04/29/19 06:10 Negative mg/dL (Negative) 04/29/19 06:10 Trace-intact (Negative) H 04/29/19 06:10 Negative (Negative) 04/29/19 06:10 Negative (Negative) 04/29/19 06:10 0.2 EU/dL (Up TO 0.2) 04/29/19 06:10 Ur Leukocyte Esterase Negative (Negative) 04/29/19 06:10 0-2 (0-2) 04/29/19 06:10 Negative HPF (0-5) 04/29/19 06:10 Ur Epithelial Cells Rare HPF (Negative) 04/29/19 06:10 Negative HPF (Negative) 04/29/19 06:10 Rare HPF (Negative) 04/29/19 06:10 Negative LPF (Negative) 04/29/19 06:10 Negative (Negative) 04/29/19 06:10 Ur Culture Indicated? No 04/29/19 06:10 Negative mg/dL (Negative) 04/29/19 06:10 Patient ABO/Rh O Positive 04/29/19 05:04 Antibody Screen Negative 04/29/19 05:04
[2019-04-30 14:44] LABS: Mean Corp. HGB Concentration 33.7 g/dL (32.0-36.0); Mean Corpuscular Hemoglobin 28.3 pg (27.0-33.0); Mean Platelet Volume 12.8 fL (8.0-11.0); Platelet Count 160 x1000/uL (130-400); RBC 2.37 m/cumm (4.00-5.20); RBC Distribution Width 15.4 % (11.7-14.6); White Blood Cell Count 9.49 k/cumm (4.4-10.8)
[2019-04-30 14:47] LABS: HCT 19.9 % (36.0-46.0); HGB 6.7 g/dL (12.0-15.5)
--- NOTE | 2019-04-30 15:32 | PHARADMIT ---
Addendum entered by Sobia Paiz 05/02/19 17:03: Pharmacy Note Subjective 1 unit of blood being transfused today Objective BP-86/53 other VS okay Na-132 SCr-1.13(down) mag-2.7(high) Assessment magnesium elevated, pt had IV replacement yesterday and has PO scheduled BID diphenhydramine ordered X1 today prior to transfusion, and furosemide X1 after transfusion furosemide ordered daily to start tomorrow lisinopril is still on hold Plan watch h/h and mag Original Note: Admission Pharmacy Clinical Review Code Status Full Code Current Weight 48.5 kg Renally Cleared and Narrow Therapeutic Index Meds CrCl ~32ml/min QTc Value / Action Taken QTc 471 BP Control, Fever BP 95/63, Tmax 37.6 Electrolytes reviewed Mg 1.5, Na 138, K 4.3 DVT Prophylaxis No Opiate Usage / Scheduled Bowel Regimen Ordered Fentanyl patch & dilaudid prn, yes Plt/SCr for Heparin / Enoxaparin Plt 160, Scr 1.18 INR for Warfarin NA H/H stable, WBC/Bands H/H 19.9/6.7 (just had surgery) Antibiotic appropriateness None Cultures and Sensitivities NA Surgical ABX d/c within 24 hr None DM control / Insulin Dosing NA Heart Failure (Check EF%) (ASHWINI's, B-Block, Diuretics) EF 35% (11/11/18) IV to PO Switch Home Meds Reviewed Home Meds Not Ordered furosemide 20mg daily, potassium 10meq daily Comments CHF and CKD: Continue to monitor I/O's and daily wt carefully and Scr
--- NOTE | 2019-04-30 15:58 | PGE_ITS ---
Date of Service Date of service: 04/30/19 Time of Service: 16:00 Assessment and Plan (1) Closed left hip fracture: Current visit: Yes Status: Acute Assessment: Stable postop day #1 trochanteric femoral nail left for IT fracture left femur. She has surgical anemia superimposed on her preoperative anemia. I agree with Dr. Salgado's assessment to transfuse her if her hemoglobin drops below 7 g. She needs to stop moving with PT today however. Plan: Transfuse packed red blood cells today per Dr. Salgado. Talk to PT and get them to see her today to start mobilization postop. Will mobilize per protocol for hip fracture. Recheck hemoglobin tomorrow. Subjective Interval history since last seen: She is experiencing no pain at rest. When she attempts to move her left leg she feels sharp pains. She says she does not remember anything about her operation yesterday. She denies any shortness of breath. She does not feel lightheaded or dizzy. Exam Narrative Exam Narrative: She is afebrile vital signs are stable. Blood pressures may be a little soft. Urine output has remained good. Hemoglobin this morning was 7.7 g. This afternoon hemoglobin was repeated and it was 6.7 g. She has good active motion of her left ankle and toes. She has good circulation to the left foot. She has good sensation in the left foot. Dressings are intact without any obvious bleeding to the dressings. No unusual swelling in the left lower extremity. PT has not gotten her up yet. Objective Objective Clinical Data: Abnormal lab results 04/29/19 04/30/19 04/30/19 Range/Units 05:04 06:50 06:50 RBC 2.70 L (4.00-5.20) m/cumm Hgb 7.7 L D (12.0-15.5) g/dL Hct 22.5 L D (36.0-46.0) % RDW 15.1 H (11.7-14.6) % MPV 13.3 H (8.0-11.0) fL Absolute Neutrophils 6.85 H (1.2-6.7) k/cumm Absolute Monocytes 1.14 H (0.11-0.7) k/cumm Creatinine 1.18 H (0.55-1.02) mg/dL Glucose 107 H (70-100) mg/dL Calcium 8.4 L (8.5-10.1) mg/dL Magnesium 1.5 L (1.8-2.4) mg/dL Crossmatch See Detail 04/30/19 Range/Units 14:38 RBC 2.37 L (4.00-5.20) m/cumm Hgb 6.7 L* (12.0-15.5) g/dL Hct 19.9 L* (36.0-46.0) % RDW 15.4 H (11.7-14.6) % MPV 12.8 H (8.0-11.0) fL Absolute Neutrophils (1.2-6.7) k/cumm Absolute Monocytes (0.11-0.7) k/cumm Creatinine (0.55-1.02) mg/dL Glucose (70-100) mg/dL Calcium (8.5-10.1) mg/dL Magnesium (1.8-2.4) mg/dL Crossmatch Vital Signs Temperature 37.6 C H 04/30/19 11:40 Temperature Source Tympanic 04/30/19 11:40 Pulse 75 04/30/19 11:40 Pulse Rhythm Irregular 04/30/19 09:18 Respiratory Rate 17 04/30/19 11:40 Respiratory Effort Non-Labored 04/30/19 09:18 Respiratory Depth Normal 04/30/19 09:18 Respiratory Pattern Normal 04/30/19 09:18 Blood Pressure 94/63 L 04/30/19 11:40 Blood Pressure Position Supine 04/29/19 04:46 Pulse Oximetry 96 04/30/19 11:40 Respiratory End-tidal CO2 27 04/29/19 17:30 Oxygen Delivery Method Room Air 04/30/19 11:40 Oxygen Flow Rate 0 04/30/19 11:40 Pain Level 6 04/30/19 12:01 Intake & Output 04/29/19 04/30/19 04/30/19 23:59 11:59 23:59 Intake Total 432 / 432 2958 / 3218 260 / 3218 Output Total 900 / 900 200 / 450 250 / 450 Balance -468 / -468 2758 / 2768 2767 Weight 45.359 kg 48.5 kg Intake: IV 432 / 432 2458 / 2468 2467 Oral 500 / 750 250 / 750 Output: Urine 900 / 900 200 / 450 250 / 450 Other: Urine Color Yellow Straw Dark Gloria Urine Appearance Clear Clear Clear Urine Odor Normal Voiding Methods Indwelling Catheter Laboratory Results WBC 9.49 k/cumm (4.4-10.8) 04/30/19 14:38 RBC 2.37 m/cumm (4.00-5.20) L 04/30/19 14:38 Hgb 6.7 g/dL (12.0-15.5) L* 04/30/19 14:38 Hct 19.9 % (36.0-46.0) L* 04/30/19 14:38 MCV 84.0 fL (80-95) 04/30/19 14:38 MCH 28.3 pg (27.0-33.0) 04/30/19 14:38 MCHC 33.7 g/dL (32.0-36.0) 04/30/19 14:38 RDW 15.4 % (11.7-14.6) H 04/30/19 14:38 Plt Count 160 x1000/uL (130-400) 04/30/19 14:38 MPV 12.8 fL (8.0-11.0) H 04/30/19 14:38 Immature Gran % 0.1 04/30/19 06:50 71.0 04/30/19 06:50 16.8 04/30/19 06:50 11.8 04/30/19 06:50 0.1 04/30/19 06:50 0.2 04/30/19 06:50 Absolute Neutrophils 6.85 k/cumm (1.2-6.7) H 04/30/19 06:50 Absolute Lymphocytes 1.62 k/cumm (1.2-3.4) 04/30/19 06:50 Absolute Monocytes 1.14 k/cumm (0.11-0.7) H 04/30/19 06:50 Absolute Eosinophils 0.01 k/cumm (0.0-0.7) 04/30/19 06:50 Absolute Basophils 0.02 k/cumm (0.0-0.2) 04/30/19 06:50 Rbc morph reviewed 04/30/19 06:50 RBC Morphology See below 04/30/19 06:50 2+ 04/30/19 06:50 PT 10.2 sec (9.3-11.0) 04/29/19 05:04 INR 1.0 (0.9-1.1) 04/29/19 05:04 APTT 24.5 sec (21.0-31.4) 04/29/19 05:04 Sodium 138 mmol/L (136-145) 04/30/19 06:50 Potassium 4.3 mmol/L (3.5-5.1) 04/30/19 06:50 Chloride 104 mmol/L (98-107) 04/30/19 06:50 Carbon Dioxide 26.2 mmol/L (21.0-32.0) 04/30/19 06:50 7.8 mmol/L (3-11) 04/30/19 06:50 BUN 18 mg/dL (7-18) 04/30/19 06:50 1.18 mg/dL (0.55-1.02) H 04/30/19 06:50 45.42 (mL/min/1.73m2) 04/30/19 06:50 Glucose 107 mg/dL (70-100) H 04/30/19 06:50 Calcium 8.4 mg/dL (8.5-10.1) L 04/30/19 06:50 Magnesium 1.5 mg/dL (1.8-2.4) L 04/30/19 06:50 0.2 mg/dL (0.2-1.0) 04/29/19 05:04 AST 9 U/L (15-37) L 04/29/19 05:04 ALT 7 U/L (12-78) L 04/29/19 05:04 204 U/L (46-116) H 04/29/19 05:04 37 U/L (26-192) 04/29/19 05:04 < 0.05 ng/mL (0.00-0.06) 04/29/19 12:25 6.7 g/dL (6.4-8.2) 04/29/19 05:04 2.7 g/dL (3.4-5.0) L 04/29/19 05:04 Yellow (Yellow) 04/29/19 06:10 Clear (Clear) 04/29/19 06:10 6.5 (5-8) 04/29/19 06:10 Ur Specific [place] 1.015 (1.005-1.025) 04/29/19 06:10 Negative mg/dL (Negative) 04/29/19 06:10 Negative mg/dL (Negative) 04/29/19 06:10 Trace-intact (Negative) H 04/29/19 06:10 Negative (Negative) 04/29/19 06:10 Negative (Negative) 04/29/19 06:10 0.2 EU/dL (Up TO 0.2) 04/29/19 06:10 Ur Leukocyte Esterase Negative (Negative) 04/29/19 06:10 0-2 (0-2) 04/29/19 06:10 Negative HPF (0-5) 04/29/19 06:10 Ur Epithelial Cells Rare HPF (Negative) 04/29/19 06:10 Negative HPF (Negative) 04/29/19 06:10 Rare HPF (Negative) 04/29/19 06:10 Negative LPF (Negative) 04/29/19 06:10 Negative (Negative) 04/29/19 06:10 Ur Culture Indicated? No 04/29/19 06:10 Negative mg/dL (Negative) 04/29/19 06:10 Patient ABO/Rh O Positive 04/29/19 05:04 Antibody Screen Negative 04/29/19 05:04 Crossmatch See Detail 04/29/19 05:04
--- NOTE | 2019-04-30 16:25 | CHAPLAIN ---
Oralia was in bed, and said she was feeling severe, shooting pains in her hip. 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 She is originally from the [facility].
--- NOTE | 2019-04-30 16:42 | IN_ITS ---
Date of service: 04/30/19 Time of Service: 16:08 PT Notes Inpatient Physical Therapy Evaluation Date: 04/30/2019 Referring Doctor: Jamie Sheldon MD PT Orders: PT CONSULT: Mobilize postop TFN L. WBAT to left leg. Precautions: Fall. Standard. WBAT to left LE Patient Profile/Admitting Diagnosis: Patient is a 68-year-old female who presented to the ED on 04/29/2019 with chief complaints of left hip pain after sustaining a mechanical fall tripping on her dog's toys while she was on her way back from the bathroom to her bedroom. She fell backwards and landed on her left hip first. Patient is diagnosed with a closed intertrochanteric fracture of the left femur and is status post ORIF on postoperative day 1. PMHX: Medical History (Updated 04/29/19 @ 13:26 by Jayashree Alaniz MD) Cardiomyopathy, nonischemic (Acute) Chronic kidney disease, stage 3 (Acute) Chronic systolic CHF (congestive heart failure) (Chronic) Compression fracture of lumbar vertebra (Acute) Dilated cardiomyopathy (Chronic) Mitral regurgitation (Chronic) Osteoporosis (Chronic) Surgical History (Updated 04/29/19 @ 13:11 by Jayashree Alaniz MD) History of mitral valve repair (Chronic) ICD (implantable cardioverter-defibrillator) in place (Chronic) Social History/Home Situation: Patient lives on the second floor of an apartment building here in [address] She is independent with all mobility ADLs indoors without the need for and assistive ambulatory device. She does state that she uses a cane when she is walking her dog in the neighborhood and very infrequently, a 4WW for long distance ambulation. She used to receive meals on wheels but stopped getting them when she regained her independence back from having a back surgery previously. She did stae that she may have to request reinstatement of MOW services for when she goes home. Current Functional Limitations: Inability to participate in doing MRADLs due to pain level, low Hgb, fatigue and anxiety Equipment Owned/DME: FWW, 4WW, SC, shower chair, raised toilet seat, grab bars Subjective: Patient is agreeable to initiating PT evaluation today despite significant report of pain, fatigue, and anxiety over doing any movement. She states that MD notified her to stay put for transfusion of a pack of blood due to hemoglobin level of 6.7. She emphatically requested to have any out-of-bed activities done first thing tomorrow morning. Patient reports that she had a previous a previous fall a month ago while she was walking her dog which resulted to a shoulder injury but did not require hospitalization. Objective: General Observation: patient seen lying in bed. Surgical dressing over on L anterolateral hip. Knee-high TEDS to bilateral LE. Anti-thromboembolic pump to B legs. IV in L UE. Mental Status: Alert and oriented x 4 Pain: 1/10 at rest. 8-9/10 with attempts at movement. ROM: Right Upper Extremity: Shoulder Flexion WFL. Shoulder abduction WFL. Elbow flexion WFL. Wrist flexion WFL. Functional opening and closing of hand WFL. Left Upper Extremity: Shoulder Flexion WFL. Shoulder abduction WFL. Elbow flexion WFL. Wrist flexion WFL. Functional opening and closing of hand WFL. Right Lower Extremity: Hip flexion WFL. Hip abduction WFL. Knee flexion WFL. Ankle dorsiflexion WFL. Ankle plantarflexion WFL. Left Lower Extremity: Hip flexion 0-5 degrees with pain limiting movement. Hip abduction 0-5 degrees with pain limiting movement. Knee flexion 0-5 degrees with pain limiting movement. Ankle dorsiflexion WFL. Ankle plantarflexion WFL. Strength: Right Upper Extremity: Shoulder flexors 5/5. Shoulder abductors 5/5. Elbow flexo rs 5/5. Elbow extensors 5/5. Malt Specifications Control Assistant strong. Left Upper Extremity: Shoulder flexors 5/5. Shoulder abductors 5/5. Elbow flexors 5/5. Elbow extensors 5/5. Malt Specifications Control Assistant strong. Right Lower Extremity: Hip flexors 5/5. Hip abductors 5/5. Knee flexors 5/5. Knee extensors 5/5. Ankle dorsiflexors 5/5. Ankle plantarflexors 5/5. Left Lower Extremity:Hip flexors 2-/5. Hip abductors 2-/5. Knee flexors 2-/5. Knee extensors 2-/5. Ankle dorsiflexors 3+/5. Ankle plantarflexors 3+/5. Sensation: Intact as to pain and pressure on bilateral lower extremities. Bed Mobility/Transfers: Patient strongly declined any bed mobility and out of bed activities for this session due to Hgb level of 6.7, significant pain level, and being notified by nurse and MD to stay put for transfusion of 1 unit of b lood. Patient agreed to assess first thing tomorrow morning. Gait: Patient strongly declined any bed mobility and out of bed activities for this session due to Hgb level of 6.7, significant pain level, and being notified by nurse and MD to stay put for transfusion of 1 unit of blood. Patient agreed to assess first thing tomorrow morning. Balance: Patient strongly declined any bed mobility and out of bed activities for this session due to Hgb level of 6.7, significant pain level, and being notified by nurse and MD to stay put for transfusion of 1 unit of blood. Patient agreed to assess first thing tomorrow morning. Special Tests: Mobility Limitations Standardized Measure [facility] 6 clicks Basic Mobility Inpatient Short Form: Raw Score: 6 CMS Score: 100% deficit Informed Consent/Education: Patient instructed in purpose of PT consult and plan of care. Patient was also advised on doing hourly muscle setting exercises for bilateral gluteal and quadriceps muscles as well as for doing ankle pumping exercises x 30. Assessment: Patient presents with clinical signs and symptoms consistent with current/admitting diagnoses that have resulted to mobility limitations, gait instability, generalized weakness, and impairment of motor control as demonstrated by the following impairment level findings: 1. Decreased strength to L LE major muscle groups 2. Impaired sitting/standing balance 3. Impaired activity tolerance 4. Limitation of joint range of motion in L hip and knee joints Impairments are contributing to the following functional limitations: 1. Dependent bed mobility skills 2. Increased dependence with transfers 3. Inability to safely ambulate without assistive device and physical assistance 4. Increase completion time for mobility ADL performance 5. Increased fall risk 6. Inability to negotiate steps alone safely Patient is assessed as a 49613 moderate complexity based on the following: History: 68-year-old cognitively intact female with premorbid independent level with closed intertrochanteric fracture of the left femur status post open ORIF on 04/29/2019 Examination: Demonstrable impairment in strength, balance, and range of motion with underlying impairments and functional limitations as documented above Presentation:Evolving Decision Makin moderate complexity Goals: Goals X1 week 1. Supine-Sit independent 2. Sit-Supine independent 3. Sit-Stand independent 4. Stand-Sit independent 5. Bed-Chair independent 6. Chair-Bed independent 7. Independent gait on level surface with use of least restrictive device for at least 300 feet without report of pain nor dyspnea 8. Independent with home exercise program 9. Good static and dynamic standing balance/tolerance Plan of Care/Treatment Plan: 1-2x/day, 7 days/week x 1 week. Plan of care has been reviewed with the LAND DEPARTMENT HEAD providing the service under Physical Therapy direction. Initiate Physical Therapy intervention for strengthening, bed mobility, transfers, gait, stairs, balance training, use of assistive device. DISCHARGE RECOMMENDATIONS: Patient will benefit from residential facility placement in order to progress mobility level, strength, and balance in preparation for a safe discharge to home. TREATMENT CODE/TIME: 89871 x 23 minutes beginning at 16:06 PM. Thank you very much for this referral. Annita Courtney PT, DPT, CLT [facility]
[2019-04-30] MEDS: Normal Saline Flush 10 ML SYR IVP ×2 (17:43→17:55)
[2019-04-30] MEDS: Cyclobenzaprine 10 MG TAB 5 MG PO (18:03)
--- NOTE | 2019-04-30 18:58 | PDOC.CMIN ---
Care Management Initial Assess REASON FOR HOSPITALIZATION:: L HIP FRACTURE PAST MEDICAL HISTORY/PAST SURGICAL HISTORY:: Cardiomyopathy nonischemic, CKD Stage 3, CHF, compression fracture of lumbar vetebra, dilated cardiomyopathy, mitral regurgitation, osteoporosis, mitral valve repair, ICD PREVIOUS FUNCTIONAL STATUS/SOCIAL/FAMILY SUPPORTS:: Oralia resides in a [facility] apt in [place]. She has four adult children, one resides locally. She is currently disabled and was previously employed as a fitness center attendant, social services assistant and NEWSPAPER EDITOR at [employer]. Oralia does not drive, and utilizes [facility] for medical appointments and grocery shopping. CURRENT FUNCTIONAL STATUS:: Oralia is lying in bed, MD enters room and notifies patient she requires transfusion at this time. PT enters and reports Oralia is unable to engage in PT until stable. PT notifies RN that Oralia is having increased pain at this time. Ed Daigle also enters room to review her role. Oralia is well known to [facility] and welcoming to staff entering her room. Did the patient sign up for the portal?: No CODE STATUS:: Full Code INSURANCE COVERAGE / FINANCIAL ISSUES:: Medicare. Medicaid CURRENT HOME/COMMUNITY SERVICES/EQUIPMENT:: Has [employer]-moderate needs (housekeeping services)-Dielectric Press Operator is Corinne Beverly. Is also a [facility] client-Allison Lozano is salon professional. Has raised toilet seat, grab bars, tub bench, w/c and walker for home uses. No skilled services at this time. PRIMARY CARE PHYSICIAN:: Paula Vazquez POTENTIAL DISCHARGE NEEDS:: PT evaluation, consideration for SNF. PATIENT/FAMILY EDUCATION NEEDS:: Review of discharge instructions, discuss Ask Me Three. ANTICIPATED BARRIERS TO DISCHARGE:: None identified at this time. TRANSPORTATION:: TBD by mobility and disposition. PLAN:: Oralia will have transfusion as her H&H is decreasing per MD. She will continue to be closely monitored for pain management and work with physical therapy. CM continues to follow.
[2019-04-30 22:16] LABS: HCT 25.2 % (36.0-46.0); HGB 8.7 g/dL (12.0-15.5); Mean Corp. HGB Concentration 34.5 g/dL (32.0-36.0); Mean Platelet Volume 12.8 fL (8.0-11.0); Platelet Count 162 x1000/uL (130-400); RBC 3.11 m/cumm (4.00-5.20); RBC Distribution Width 16.2 % (11.7-14.6); White Blood Cell Count 10.62 k/cumm (4.4-10.8)
[2019-04-30] MEDS: diazePAM 2 MG TAB PO (22:41)
[2019-05-01] VITALS (10 sets, daily range): BP systolic 73–121; BP diastolic 52–73; PULSE 59–104; RESP 16–21; TEMP 36.4–37.2; O2SAT 91–98
[2019-05-01] MEDS: Ketorolac 15 MG/ML VIAL IVP (00:42)
[2019-05-01] MEDS: Normal Saline Flush 10 ML SYR IVP (00:43)
[2019-05-01] MEDS: HYDROmorphone 2 MG TAB PO ×3 (02:21→14:28)
[2019-05-01 07:44] LABS: Anion Gap 8.4 mmol/L (3-11); BUN 20 mg/dL (7-18); CO2 25.6 mmol/L (21.0-32.0); CREATININE 1.21 mg/dL (0.55-1.02); Calcium 8.1 mg/dL (8.5-10.1); Chloride 99 mmol/L (98-107); Estimated GFR 44.12 (mL/min/1.73m2); Glucose 91 mg/dL (70-100); Magnesium 1.5 mg/dL (1.8-2.4); Potassium 4.4 mmol/L (3.5-5.1); Sodium 133 mmol/L (136-145)
[2019-05-01] MEDS: Magnesium Oxide 400 MG TAB PO ×2 (08:19→20:12)
[2019-05-01] MEDS: Aspirin E.C. 81 MG TABEC PO (08:19)
[2019-05-01] MEDS: Docusate Sodium 100 MG CAP PO (08:19)
[2019-05-01] MEDS: Milk of Magnesia 30 ML CUP PO (08:19)
[2019-05-01] MEDS: Esomeprazole 40 MG CAPCR PO (08:20)
[2019-05-01] MEDS: Calcium Carbonate 1.25 GM TAB PO ×2 (08:20→20:12)
[2019-05-01] MEDS: Carvedilol 6.25 MG TAB PO (08:20)
[2019-05-01] MEDS: DULoxetine 30 MG CAP PO (08:20)
[2019-05-01] MEDS: Lisinopril 5 MG TAB PO (08:20)
[2019-05-01] MEDS: Cholecalciferol (Vitamin D3) 1,000 UNIT TAB 1000 UNITS PO (08:20)
[2019-05-01] MEDS: Normal Saline 250 ML 500 ML IV (11:33)
--- NOTE | 2019-05-01 12:28 | PTTR_ITS ---
Date of service: 05/01/19 Time of Service: 10:38 PT Notes Inpatient Physical Therapy Treatment Note [facility] Date: 05/01/2019 PRECAUTIONS:FAll. Standard. WBAT on L. SUBJECTIVE: I feel so stressed out right now! Patient reports that she still may not do good due to the pain report she has. She states she had a pain pill just about after breakfast. She denies headache, chest pain, and dizziness throughout session. OBJECTIVE: Patient still in bed. Huston catheter in place. TEDS to B legs. Surgical dressing on lateral hip area. PAIN:7-8/10 with movement on L hip. BED MOBILITY/TRANSFERS Rolling L/R: minimal assist Supine-sit: minimal assist Sit-supine: minimal assist Sit-stand: minimal assist Stand-sit: minimal assist Bed-Chair: minimal assist Chair-bed: minimal assist GAIT Assistive Device: FWW Weight bearing: WBAT L Assist: minimal assist Distance: 8-10 feet Deviation: step-to gait pattern. Patient favors L LE by leaning forward and to the right hence requiring verbal cues for posture and walker management. THEREX: Patient able to tolerate AROM and muscle setting exercises to B quadriceps, gluteals, and dorsiflexors per flow sheet ASSESSMENT: Patient currently limited by pain, anxiety, and symptoms of fear of falling due to recent fall. She may benefit from pre-medication for pain for improved functional performance. PLAN: Patient will benefit from [facility] in order to progress mobility level, strength, and balance in preparation for a safe discharge to home. TREATMENT CODE/TIME: 90806 x 28 minutes beginning at 10:38 AM.
[2019-05-01 12:29] LABS: HCT 26.6 % (36.0-46.0); HGB 9.1 g/dL (12.0-15.5); Mean Corp. HGB Concentration 34.2 g/dL (32.0-36.0); Mean Corpuscular Hemoglobin 27.9 pg (27.0-33.0); Mean Corpuscular Volume 81.6 fL (80-95); Mean Platelet Volume 14.4 fL (8.0-11.0); Platelet Count 180 x1000/uL (130-400); RBC 3.26 m/cumm (4.00-5.20); RBC Distribution Width 16.7 % (11.7-14.6)
[2019-05-01] MEDS: MAGNESIUM SULFATE 4 GM/100 ML BAG IVPB (14:29)
--- NOTE | 2019-05-01 14:35 | PT.INTREAT ---
Date of service: 05/01/19 Time of Service: 14:35 PT Notes Inpatient Physical Therapy Treatment Note [facility] Date: 05/01/19 PRECAUTIONS: Fall, WBAT L SUBJECTIVE: Oralia is hesitant, but agreeable to participating in PT following a little encouragement. OBJECTIVE: PAIN: Patient c/o L LE pain with ther ex, gait, and transfers BED MOBILITY/TRANSFERS Supine-sit: Min A with HOB at 10 degrees Sit-stand: SBA Stand-sit: Min A to advance L LE Bed-Chair: CGA GAIT Assistive Device: FWW Weight bearing: WBAT on L Assist: CGA Distance: 10' Deviation: Step-through pattern, slow pace, cueing for sequence VITALS: See nsg notes for specifics THEREX: Patient completed a LE strengthening and stabilization program, in a supine position, as per flow sheet. She requires assist with hip abduction and heel slide exercises due to pain and weakness. TOILETING: Patient was incontinent of stool, and toileted with assist ASSESSMENT: Patient tolerated session with complaint of increased pain in L LE with gait, transfers, and ther ex. Patient would benefit from continued gait and transfer training, as well as strengthening for improved mobility and activity tolerance. PLAN: Continue with PT's POC TREATMENT CODE/TIME: 40 minutes; 67302 x2, [id number]
--- NOTE | 2019-05-01 14:49 | PGE_ITS ---
Date of Service Date of service: 05/01/19 Time of Service: 14:53 Assessment and Plan (1) Hypotension: Current visit: Yes Status: Acute Check EKG. Clinically mildly dehydrated. Anemia is not to the extent that would cause hypotension. Will start gentle IVF, hold taya-i. Set holding parameters for coreg. Repeat H/H in am. (2) Closed left hip fracture: Current visit: Yes Status: Acute Due to a mechanical fall. S/p ORIF on 04/29/19. Post-op, has so far required 1 unit of pRBC's. Even though she looks very pale today, her H/H is 9.1/26.6. Continue IS. PT/OT (3) Chronic systolic CHF (congestive heart failure): Current visit: No Status: Chronic S/p AICD. Monitor respiratory status while on gentle IVF. (4) Osteoporosis: Current visit: Yes Status: Chronic Continue vitamin D supplementation and calcium. (5) Mitral regurgitation: Current visit: No Status: Chronic Follow up as outpatient (6) Chronic kidney disease, stage 3: Current visit: No Status: Acute Monitor Cr/I/O's (7) DVT prophylaxis: Current visit: Yes Status: Acute TEDs, SCD's, lovenox (8) Discharge planning issues: Current visit: Yes Status: Acute Full code Will likely need SNF placement on discharge Subjective Interval history since last seen: Denies dizziness, chest pain, shortness of breath, nausea, pain. Has been hypotensive today - manual SBP now is in low 100's. Exam Narrative Exam Narrative: General: very pleasant elderly female, pale, laying flat in bed, A&Ox3, mentating at her baseline HEENT: Atraumatic, normocephalic, EOMI, MMM, lips are pale Heart: irregularly irregular rhythm today with extra beats Lungs: CTAB GI: abdomen is soft, nontender, nondistended Extremities: no e/c/c, in TEDs/SCD's Objective Objective Clinical Data: Abnormal lab results 04/29/19 04/30/19 05/01/19 Range/Units 05:04 22:10 07:25 WBC (4.4-10.8) k/cumm RBC 3.11 L (4.00-5.20) m/cumm Hgb 8.7 L (12.0-15.5) g/dL Hct 25.2 L D (36.0-46.0) % RDW 16.2 H (11.7-14.6) % MPV 12.8 H (8.0-11.0) fL Sodium 133 L (136-145) mmol/L BUN 20 H (7-18) mg/dL Creatinine 1.21 H (0.55-1.02) mg/dL Calcium 8.1 L (8.5-10.1) mg/dL Magnesium 1.5 L (1.8-2.4) mg/dL Crossmatch See Detail 05/01/19 Range/Units 11:55 WBC 12.00 H (4.4-10.8) k/cumm RBC 3.26 L (4.00-5.20) m/cumm Hgb 9.1 L (12.0-15.5) g/dL Hct 26.6 L (36.0-46.0) % RDW 16.7 H (11.7-14.6) % MPV 14.4 H (8.0-11.0) fL Sodium (136-145) mmol/L BUN (7-18) mg/dL Creatinine (0.55-1.02) mg/dL Calcium (8.5-10.1) mg/dL Magnesium (1.8-2.4) mg/dL Crossmatch Vital Signs Temperature 37.2 C 05/01/19 11:30 Temperature Source Temporal Artery Scan 05/01/19 11:30 Pulse 59 L 05/01/19 12:29 Pulse Rhythm Irregular 05/01/19 08:27 Respiratory Rate 18 05/01/19 11:30 Respiratory Effort Non-Labored 05/01/19 08:27 Respiratory Depth Normal 05/01/19 08:27 Respiratory Pattern Normal 05/01/19 08:27 Blood Pressure 78/54 L 05/01/19 12:29 Blood Pressure Position Supine 04/29/19 04:46 Pulse Oximetry 91 L 05/01/19 11:30 Respiratory End-tidal CO2 27 04/29/19 17:30 Oxygen Delivery Method Room Air 05/01/19 11:30 Oxygen Flow Rate 0 05/01/19 11:30 Pain Level 8 05/01/19 11:30 Comment 05/01/19 04:41 Intake & Output 04/30/19 05/01/19 05/01/19 23:59 11:59 23:59 Intake Total 1430 / 4388 570 / 1070 500 / 1070 Output Total 500 / 700 800 / 1000 200 / 1000 Balance 930 / 3688 -230 / 70 300 / 70 Weight 47.9 kg Intake: IV 8 250 / 250 Oral 1150 / 1650 570 / 820 250 / 820 Blood Product 250 / 250 Rbc Leuko Reduced Unit 250 / 250 [id number] Output: Urine 500 / 700 800 / 1000 200 / 1000 Other: Urine Color Yellow Yellow Pale Yellow Straw Urine Appearance Clear Clear Clear Urine Odor Normal Stool Size Moderate Moderate Stool Characteristics Soft Liquid Brown Brown Voiding Methods Indwelling Catheter Laboratory Results WBC 12.00 k/cumm (4.4-10.8) H 05/01/19 11:55 RBC 3.26 m/cumm (4.00-5.20) L 05/01/19 11:55 Hgb 9.1 g/dL (12.0-15.5) L 05/01/19 11:55 Hct 26.6 % (36.0-46.0) L 05/01/19 11:55 MCV 81.6 fL (80-95) 05/01/19 11:55 MCH 27.9 pg (27.0-33.0) 05/01/19 11:55 MCHC 34.2 g/dL (32.0-36.0) 05/01/19 11:55 RDW 16.7 % (11.7-14.6) H 05/01/19 11:55 Plt Count 180 x1000/uL (130-400) 05/01/19 11:55 MPV 14.4 fL (8.0-11.0) H 05/01/19 11:55 Immature Gran % 0.1 04/30/19 06:50 71.0 04/30/19 06:50 16.8 04/30/19 06:50 11.8 04/30/19 06:50 0.1 04/30/19 06:50 0.2 04/30/19 06:50 Absolute Neutrophils 6.85 k/cumm (1.2-6.7) H 04/30/19 06:50 Absolute Lymphocytes 1.62 k/cumm (1.2-3.4) 04/30/19 06:50 Absolute Monocytes 1.14 k/cumm (0.11-0.7) H 04/30/19 06:50 Absolute Eosinophils 0.01 k/cumm (0.0-0.7) 04/30/19 06:50 Absolute Basophils 0.02 k/cumm (0.0-0.2) 04/30/19 06:50 Rbc morph reviewed 04/30/19 06:50 RBC Morphology See below 04/30/19 06:50 2+ 04/30/19 06:50 PT 10.2 sec (9.3-11.0) 04/29/19 05:04 INR 1.0 (0.9-1.1) 04/29/19 05:04 APTT 24.5 sec (21.0-31.4) 04/29/19 05:04 Sodium 133 mmol/L (136-145) L 05/01/19 07:25 Potassium 4.4 mmol/L (3.5-5.1) 05/01/19 07:25 Chloride 99 mmol/L (98-107) 05/01/19 07:25 Carbon Dioxide 25.6 mmol/L (21.0-32.0) 05/01/19 07:25 8.4 mmol/L (3-11) 05/01/19 07:25 BUN 20 mg/dL (7-18) H 05/01/19 07:25 1.21 mg/dL (0.55-1.02) H 05/01/19 07:25 44.12 (mL/min/1.73m2) 05/01/19 07:25 Glucose 91 mg/dL (70-100) 05/01/19 07:25 Calcium 8.1 mg/dL (8.5-10.1) L 05/01/19 07:25 Magnesium 1.5 mg/dL (1.8-2.4) L 05/01/19 07:25 0.2 mg/dL (0.2-1.0) 04/29/19 05:04 AST 9 U/L (15-37) L 04/29/19 05:04 ALT 7 U/L (12-78) L 04/29/19 05:04 204 U/L (46-116) H 04/29/19 05:04 37 U/L (26-192) 04/29/19 05:04 < 0.05 ng/mL (0.00-0.06) 04/29/19 12:25 6.7 g/dL (6.4-8.2) 04/29/19 05:04 2.7 g/dL (3.4-5.0) L 04/29/19 05:04 Yellow (Yellow) 04/29/19 06:10 Clear (Clear) 04/29/19 06:10 6.5 (5-8) 04/29/19 06:10 Ur Specific [place] 1.015 (1.005-1.025) 04/29/19 06:10 Negative mg/dL (Negative) 04/29/19 06:10 Negative mg/dL (Negative) 04/29/19 06:10 Trace-intact (Negative) H 04/29/19 06:10 Negative (Negative) 04/29/19 06:10 Negative (Negative) 04/29/19 06:10 0.2 EU/dL (Up TO 0.2) 04/29/19 06:10 Ur Leukocyte Esterase Negative (Negative) 04/29/19 06:10 0-2 (0-2) 04/29/19 06:10 Negative HPF (0-5) 04/29/19 06:10 Ur Epithelial Cells Rare HPF (Negative) 04/29/19 06:10 Negative HPF (Negative) 04/29/19 06:10 Rare HPF (Negative) 04/29/19 06:10 Negative LPF (Negative) 04/29/19 06:10 Negative (Negative) 04/29/19 06:10 Ur Culture Indicated? No 04/29/19 06:10 Negative mg/dL (Negative) 04/29/19 06:10 Patient ABO/Rh O Positive 04/29/19 05:04 Antibody Screen Negative 04/29/19 05:04 Crossmatch See Detail 04/29/19 05:04
[2019-05-01] MEDS: Normal Saline 500 ML IV (15:26)
[2019-05-01] MEDS: Normal Saline 1,000 ML 75 ML IV (15:27)
--- NOTE | 2019-05-01 16:32 | PDOC.CMPRO ---
Care Management Progress Note S/O: Oralia was lying in bed when CM met with her. Discharge planning recommendations were reviewed; Oralia reported she would only consider [facility] due to working there previously and wanting to remain in [place] as her daughter would be traveling from [place] to care for [place] animals while she is rehabilitating. CM faxed referral to [facility] at Oralia's request. Though timid, Oralia has engaged well with Physical Therapy today. Oralia shared no other concerns at this time; CM continues to follow. A: 68 year old female admitted to [facility] 04/29/19 for L Hip Fracture P: Oralia will continue to be closely monitored for pain management and work with physical therapy. Discharge planning central to SNF placement; per Oralia's wishes, referral faxed to [facility] with an anticipated readiness date of 05/05/19. CM continues to follow.
[2019-05-01] MEDS: Enoxaparin 30 MG/0.3 ML SYR SC (16:45)
[2019-05-01] MEDS: Cyclobenzaprine 10 MG TAB 5 MG PO (20:10)
[2019-05-02] VITALS (9 sets, daily range): BP systolic 86–120; BP diastolic 53–81; PULSE 71–103; RESP 16–20; TEMP 36–36.8; O2SAT 94–100
[2019-05-02 07:22] LABS: HCT 23.2 % (36.0-46.0); HGB 7.9 g/dL (12.0-15.5); Mean Corp. HGB Concentration 34.1 g/dL (32.0-36.0); Mean Corpuscular Hemoglobin 28.1 pg (27.0-33.0); Mean Corpuscular Volume 82.6 fL (80-95); Mean Platelet Volume 13.3 fL (8.0-11.0); Platelet Count 186 x1000/uL (130-400); RBC 2.81 m/cumm (4.00-5.20); White Blood Cell Count 9.18 k/cumm (4.4-10.8)
[2019-05-02 07:33] LABS: BUN 23 mg/dL (7-18); CREATININE 1.13 mg/dL (0.55-1.02); Calcium 7.6 mg/dL (8.5-10.1); Chloride 101 mmol/L (98-107); Estimated GFR 47.74 (mL/min/1.73m2); Glucose 88 mg/dL (70-100); Magnesium 2.7 mg/dL (1.8-2.4); Potassium 4.4 mmol/L (3.5-5.1); Sodium 132 mmol/L (136-145)
[2019-05-02] MEDS: fentaNYL 12 MCG PATCH TD (08:27)
[2019-05-02] MEDS: Magnesium Oxide 400 MG TAB PO ×2 (08:29→20:56)
[2019-05-02] MEDS: fentaNYL 50 MCG PATCH TD (08:29)
[2019-05-02] MEDS: DULoxetine 30 MG CAP PO (08:29)
[2019-05-02] MEDS: Esomeprazole 40 MG CAPCR PO (08:29)
[2019-05-02] MEDS: HYDROmorphone 2 MG TAB PO ×2 (08:30→13:58)
[2019-05-02] MEDS: Docusate Sodium 100 MG CAP PO (08:30)
[2019-05-02] MEDS: Calcium Carbonate 1.25 GM TAB PO ×2 (08:31→20:57)
[2019-05-02] MEDS: Aspirin E.C. 81 MG TABEC PO (08:31)
[2019-05-02] MEDS: Cholecalciferol (Vitamin D3) 1,000 UNIT TAB 1000 UNITS PO (08:31)
--- NOTE | 2019-05-02 12:01 | W.PM.PROGNOT ---
Date of Service Date of service: 05/02/19 Time of Service: 12:01 Assessment and Plan (1) Hypotension: Current visit: No Status: Resolved resolved. In setting of hypotension. H/H is lower today without active signs of bleeding - perhaps she is more anemic than her H/H yesterday suggested due to hemoconcentration. Continue to hold taya-i. Transfusion 1 unit of blood, followed by lasix; check orthostatics. Continue coreg with holding parameters. Repeat H/H in am. (2) Closed left hip fracture: Current visit: Yes Status: Acute Due to a mechanical fall. S/p ORIF on 04/29/19. Trasfuse 1 unit pRBC's today (2nd since her admission). Continue IS. PT/OT (3) Chronic systolic CHF (congestive heart failure): Current visit: No Status: Chronic S/p AICD. Naman blood transfusion with lasix. Resume home lasix tomorrow am. (4) Osteoporosis: Current visit: Yes Status: Chronic Continue vitamin D supplementation and calcium. (5) Mitral regurgitation: Current visit: No Status: Chronic Follow up as outpatient (6) Chronic kidney disease, stage 3: Current visit: No Status: Acute Monitor Cr/I/O's (7) DVT prophylaxis: Current visit: Yes Status: Acute TEDs, SCD's, lovenox (8) Discharge planning issues: Current visit: Yes Status: Acute Full code Will need SNF Subjective Interval history since last seen: Ms Castillo states that she is not dizzy today, denies chest pain, shortness of breath, nausea. She is worried about resuming lasix if the garza catheter has to come out - she realizes that eventually she'll have to restart it. Exam Narrative Exam Narrative: General: very pleasant elderly female, less pale than yesterday, laying flat in bed without tachypnea, A&Ox3 HEENT: Atraumatic, normocephalic, EOMI, MMM, lips are pale Heart: RRR, I am not hearing the extra beats. Lungs: CTAB GI: abdomen is soft, nontender, nondistended Extremities: no e/c/c, in TEDs/SCD's; L hip incisions with veronica - C/d/i. Objective Objective Clinical Data: Abnormal lab results 05/01/19 05/02/19 05/02/19 Range/Units 11:55 06:55 06:55 WBC 12.00 H (4.4-10.8) k/cumm RBC 3.26 L 2.81 L (4.00-5.20) m/cumm Hgb 9.1 L 7.9 L (12.0-15.5) g/dL Hct 26.6 L 23.2 L (36.0-46.0) % RDW 16.7 H 16.0 H (11.7-14.6) % MPV 14.4 H 13.3 H (8.0-11.0) fL Sodium 132 L (136-145) mmol/L BUN 23 H (7-18) mg/dL Creatinine 1.13 H (0.55-1.02) mg/dL Calcium 7.6 L (8.5-10.1) mg/dL Magnesium 2.7 H (1.8-2.4) mg/dL Vital Signs Temperature 36.6 C 05/02/19 07:30 Temperature Source Tympanic 05/02/19 07:30 Pulse 71 05/02/19 07:30 Pulse Rhythm Regular 05/02/19 10:27 Respiratory Rate 16 05/02/19 09:15 Respiratory Effort Non-Labored 05/02/19 10:27 Respiratory Depth Normal 05/02/19 10:27 Respiratory Pattern Normal 05/02/19 10:27 Blood Pressure 104/57 L 05/02/19 07:30 Blood Pressure Position Supine 04/29/19 04:46 Pulse Oximetry 100 05/02/19 07:30 Respiratory End-tidal CO2 27 04/29/19 17:30 Oxygen Delivery Method Room Air 05/02/19 07:30 Oxygen Flow Rate 0 05/02/19 07:30 Pain Level 4 05/02/19 09:15 Comment 05/01/19 04:41 Intake & Output 05/01/19 05/02/19 05/02/19 23:59 11:59 23:59 Intake Total 1740 / 2310 Output Total 200 / 1000 950 / 950 Balance 1540 / 1310 -950 / -950 Weight 47.9 kg Intake: IV 1250 / 1250 Oral 490 / 1060 Output: Urine 200 / 1000 950 / 950 Other: Urine Color Pale Pale Yellow Yellow Straw Straw Urine Appearance Clear Clear Urine Odor Normal Normal Stool Size Moderate Moderate Stool Characteristics Liquid Soft Brown Liquid Brown Voiding Methods Indwelling Catheter Indwelling Catheter Laboratory Results WBC 9.18 k/cumm (4.4-10.8) 05/02/19 06:55 RBC 2.81 m/cumm (4.00-5.20) L 05/02/19 06:55 Hgb 7.9 g/dL (12.0-15.5) L 05/02/19 06:55 Hct 23.2 % (36.0-46.0) L 05/02/19 06:55 MCV 82.6 fL (80-95) 05/02/19 06:55 MCH 28.1 pg (27.0-33.0) 05/02/19 06:55 MCHC 34.1 g/dL (32.0-36.0) 05/02/19 06:55 RDW 16.0 % (11.7-14.6) H 05/02/19 06:55 Plt Count 186 x1000/uL (130-400) 05/02/19 06:55 MPV 13.3 fL (8.0-11.0) H 05/02/19 06:55 Immature Gran % 0.1 04/30/19 06:50 71.0 04/30/19 06:50 16.8 04/30/19 06:50 11.8 04/30/19 06:50 0.1 04/30/19 06:50 0.2 04/30/19 06:50 Absolute Neutrophils 6.85 k/cumm (1.2-6.7) H 04/30/19 06:50 Absolute Lymphocytes 1.62 k/cumm (1.2-3.4) 04/30/19 06:50 Absolute Monocytes 1.14 k/cumm (0.11-0.7) H 04/30/19 06:50 Absolute Eosinophils 0.01 k/cumm (0.0-0.7) 04/30/19 06:50 Absolute Basophils 0.02 k/cumm (0.0-0.2) 04/30/19 06:50 Rbc morph reviewed 04/30/19 06:50 RBC Morphology See below 04/30/19 06:50 2+ 04/30/19 06:50 PT 10.2 sec (9.3-11.0) 04/29/19 05:04 INR 1.0 (0.9-1.1) 04/29/19 05:04 APTT 24.5 sec (21.0-31.4) 04/29/19 05:04 Sodium 132 mmol/L (136-145) L 05/02/19 06:55 Potassium 4.4 mmol/L (3.5-5.1) 05/02/19 06:55 Chloride 101 mmol/L (98-107) 05/02/19 06:55 Carbon Dioxide 24.0 mmol/L (21.0-32.0) 05/02/19 06:55 7.0 mmol/L (3-11) 05/02/19 06:55 BUN 23 mg/dL (7-18) H 05/02/19 06:55 1.13 mg/dL (0.55-1.02) H 05/02/19 06:55 47.74 (mL/min/1.73m2) 05/02/19 06:55 Glucose 88 mg/dL (70-100) 05/02/19 06:55 Calcium 7.6 mg/dL (8.5-10.1) L 05/02/19 06:55 Magnesium 2.7 mg/dL (1.8-2.4) H 05/02/19 06:55 0.2 mg/dL (0.2-1.0) 04/29/19 05:04 AST 9 U/L (15-37) L 04/29/19 05:04 ALT 7 U/L (12-78) L 04/29/19 05:04 204 U/L (46-116) H 04/29/19 05:04 37 U/L (26-192) 04/29/19 05:04 < 0.05 ng/mL (0.00-0.06) 04/29/19 12:25 6.7 g/dL (6.4-8.2) 04/29/19 05:04 2.7 g/dL (3.4-5.0) L 04/29/19 05:04 Yellow (Yellow) 04/29/19 06:10 Clear (Clear) 04/29/19 06:10 6.5 (5-8) 04/29/19 06:10 Ur Specific [place] 1.015 (1.005-1.025) 04/29/19 06:10 Negative mg/dL (Negative) 04/29/19 06:10 Negative mg/dL (Negative) 04/29/19 06:10 Trace-intact (Negative) H 04/29/19 06:10 Negative (Negative) 04/29/19 06:10 Negative (Negative) 04/29/19 06:10 0.2 EU/dL (Up TO 0.2) 04/29/19 06:10 Ur Leukocyte Esterase Negative (Negative) 04/29/19 06:10 0-2 (0-2) 04/29/19 06:10 Negative HPF (0-5) 04/29/19 06:10 Ur Epithelial Cells Rare HPF (Negative) 04/29/19 06:10 Negative HPF (Negative) 04/29/19 06:10 Rare HPF (Negative) 04/29/19 06:10 Negative LPF (Negative) 04/29/19 06:10 Negative (Negative) 04/29/19 06:10 Ur Culture Indicated? No 04/29/19 06:10 Negative mg/dL (Negative) 04/29/19 06:10 Patient ABO/Rh O Positive 04/29/19 05:04 Antibody Screen Negative 04/29/19 05:04 Crossmatch See Detail 04/29/19 05:04
--- NOTE | 2019-05-02 12:17 | PT.INTREAT ---
Date of service: 05/02/19 Time of Service: 12:18 PT Notes Inpatient Physical Therapy Treatment Note [facility] Date: 05/02/19 PRECAUTIONS: Fall, WBAT L SUBJECTIVE: Oralia reports that she feels more comfortable starting slow. She is agreeable to participating in PT, stating that she is feeling better than yesterday. OBJECTIVE: PAIN: Patient c/o L LE pain with ther ex, gait, and transfers BED MOBILITY/TRANSFERS Supine-sit: SBA with HOB at 20 degrees Sit-supine: Mod A with HOB at 10 degrees in a.m.; Min A with HOB flat in p.m. Sit-stand: Mod A in a.m.; SBA from elevated surface in p.m. Stand-sit: Min A in a.m.; SBA in p.m. GAIT Assistive Device: FWW Weight bearing: WBAT on L Assist: CGA Distance: 6' + 8' in a.m.; 4 steps forward + 3 side steps + 4 steps backward Deviation: Slow pace, cueing for sequence, Min A to advance R LE (in a.m.) THEREX: Patient completed a LE strengthening and stabilization program, in a seated position in a.m. and a supine position in p.m., as per flow sheet. She requires assist with hip abduction, LAQ, hip flexion, and heel slide exercises due to pain and weakness. TOILETING: Patient was incontinent of stool, and toileted with assist x2 ASSESSMENT: Patient tolerated session with complaint of increased pain in L LE with gait, transfers, and ther ex. Patient would benefit from continued gait and transfer training, as well as strengthening for improved mobility and activity tolerance. PLAN: Continue with PT's POC TREATMENT CODE/TIME: Session 1: 50 minutes; [id number] x2, [id number] Session 2: 40 minutes; [id number] x2, [id number]
[2019-05-02] MEDS: diphenhydrAMINE 25 MG CAP PO (13:58)
--- NOTE | 2019-05-02 17:13 | PDOC.CMPRO ---
Care Management Progress Note S/O: Oralia was lying in bed, PT mobilizing her leg when CM met with her. Bed offer provided by [facility] was accepted by Oralia and she did report discussing with her daughter as well. Oralia did require an additional unit of blood transfused today. She remains very pleasant in interaction. CM continues to follow. A: 68 year old female admitted to [facility] 04/29/19 for L Hip Fracture P: Oralia will continue to be closely monitored for pain management and work with physical therapy. She will discharge to [facility] when ready per MD; tentative date of 05/05/19-anticipate the facility's W/C van will be available for transport. CM to confirm discharge planning considerations.
[2019-05-02] MEDS: Enoxaparin 30 MG/0.3 ML SYR SC (17:28)
[2019-05-02 20:22] LABS: HCT 30.2 % (36.0-46.0); HGB 10.3 g/dL (12.0-15.5)
[2019-05-02] MEDS: Carvedilol 6.25 MG TAB PO (20:58)
[2019-05-03 03:38] VITALS: BP 101/61; PULSE 62; RESP 18; TEMP 37.2; O2SAT 99
[2019-05-03 06:53] LABS: HCT 28.7 % (36.0-46.0); HGB 9.7 g/dL (12.0-15.5)
[2019-05-03 07:04] LABS: Anion Gap 8.9 mmol/L (3-11); BUN 28 mg/dL (7-18); CO2 22.1 mmol/L (21.0-32.0); CREATININE 1.03 mg/dL (0.55-1.02); Chloride 101 mmol/L (98-107); Estimated GFR 53.13 (mL/min/1.73m2); Glucose 92 mg/dL (70-100); Magnesium 2.5 mg/dL (1.8-2.4); Potassium 4.9 mmol/L (3.5-5.1); Sodium 132 mmol/L (136-145)
[2019-05-03 07:38] VITALS: BP 115/59; PULSE 56; RESP 17; TEMP 36.9; O2SAT 99
[2019-05-03] MEDS: Aspirin E.C. 81 MG TABEC PO (07:46)
[2019-05-03] MEDS: HYDROmorphone 2 MG TAB PO ×4 (07:46→20:09)
[2019-05-03] MEDS: DULoxetine 30 MG CAP PO (07:46)
[2019-05-03] MEDS: Cholecalciferol (Vitamin D3) 1,000 UNIT TAB 1000 UNITS PO (07:46)
[2019-05-03] MEDS: Calcium Carbonate 1.25 GM TAB PO ×2 (07:46→20:05)
[2019-05-03] MEDS: Furosemide 20 MG TAB PO (07:47)
[2019-05-03] MEDS: Esomeprazole 40 MG CAPCR PO (07:47)
--- NOTE | 2019-05-03 09:54 | PT.INTREAT ---
Date of service: 05/03/19 Time of Service: 09:55 PT Notes 05/03/19 SUBJECTIVE: Oralia stating she has no pain at rest. 6/10 with ambulation today. She is unsure how she will walk today. OBJECTIVE: Seated in her chair. Pleasant and agreeable to PT. TRANSFERS Sit to stand: Min A Stand to sit: SBA GAIT Device: FWW Weight bearing: AT L Assist: CGA Distance: 25' Deviation: step to pattern, cues for proper gait mechanics THEREX: Seated LE strengthening and ROM activities. See flow sheet. ASSESSMENT: Significant gains in her mobility today with less pain complaints. She is tolerating more weight bearing through the left LE and this puts less pressure on her UE's which seemed to be bothering her yesterday. PLAN: Continue current POC. Treatment time: 25 minutes [id number], [id number] Arabella Gonzalez PTA Clinic location: [facility] [place], [place]
[2019-05-03 11:27] VITALS: BP 107/72; PULSE 72; RESP 18; TEMP 37.5; O2SAT 98
[2019-05-03] MEDS: Normal Saline Flush 10 ML SYR IVP (11:37)
[2019-05-03] MEDS: Enoxaparin 30 MG/0.3 ML SYR SC (15:22)
[2019-05-03 15:32] VITALS: BP 122/78; PULSE 85; RESP 17; TEMP 36.8; O2SAT 97
--- NOTE | 2019-05-03 15:54 | CMPROGNOTE_ITS ---
Care Management Progress Note S/O: Oralia was lying in bed appeared comfortable and in good spirits. A: 68 year old female admitted to [facility] 04/29/19 for L Hip Fracture P: Oralia will continue to be closely monitored for pain management and work with physical therapy. She will discharge to [facility] when ready per MD; tentative date of 05/05/19-anticipate the facility's W/C van will be available for transport. CM to confirm discharge planning considerations.
--- NOTE | 2019-05-03 16:48 | PGE_ITS ---
Date of Service Date of service: 05/03/19 Time of Service: 16:48 Assessment and Plan (1) Closed left hip fracture: Current visit: Yes Status: Acute Following a mechanical fall. S/p ORIF on 04/29, with expected post-op drop in Hemoglobin. - Continue pain control and Physical Therapy. Monitor H/H. (2) Hypotension: Current visit: No Status: Resolved In setting of blood loss and anemia. Appears improved following transfusion. Furosemide was reinitiated today, and Lisinopril to start tomorrow. (3) Anemia: Current visit: No Status: Chronic Post-op - has required 2 Units total of PRBCs. Continue to monitor. (4) Cardiomyopathy, nonischemic: Current visit: No Status: Acute LVEF 35%. Appears euvolemic. Continue BB. Furosemide reinitiated today. Restart low dose [id number] tomorrow, and monitor blood pressure closely. (5) Chronic kidney disease, stage 3: Current visit: No Status: Acute Noted. Creatinine appears stable. (6) History of mitral valve repair: Current visit: No Status: Chronic Mention of annular ring prosthesis by ECHO 10/2018, with moderate MR. (7) DVT prophylaxis: Current visit: Yes Status: Acute SC Lovenox. (8) Advance directive on file: Current visit: Yes Status: Acute Full Code. Subjective Interval history since last seen: 68 year old woman with a prior history of CHF, admitted from [facility] Emergency Department on 04/29 with a hip fracture following a mechanical fall. Mrs. Castillo has a Past Medical History significant for a dilated, Non-ischemic Cardiomyopathy with an LVEF 35% s/p AICD. Her other history includes MR s/p repair, Mod-severe TR, Moderate PHTN, CKD, and Osteoporosis. She suffered a m echanical fall at home after stepping on a dog toy while returning to bed from the bathroom. She was diagnosed with a Comminuted Intertrochanteric Fracture of the left femur, admitted, and underwent ORIF on 04/29. Since her surgery the patient has suffered from post-op blood loss and symptomatic anemia with hypotension, receiving a total of 2 units of PRBCs. This morning the patient has no complaints and feels improved overall. Blood pressure is improved overall. No overnight events reported. Remains afebrile. Exam Narrative Exam Narrative: General: Patient appears comfortable, AAOX3, NAD Neck: Supple CV: Regular, nontachycardic, S1S2, 3/6 LLSB murmur appreciated Pulmonary: Clear to auscultation bilaterally, no crackles, wheezing, or rhonchi Abdomen: + Bowel Sounds, soft, nontender, nondistended Vascular: No lower extremity edema Psych: Normal mood and affect. Objective Objective Clinical Data: Abnormal lab results 05/02/19 05/02/19 05/03/19 Range/Units 06:55 20:10 06:32 Hgb 10.3 L D (12.0-15.5) g/dL Hct 30.2 L D (36.0-46.0) % Sodium 132 L (136-145) mmol/L BUN 28 H (7-18) mg/dL Creatinine 1.03 H (0.55-1.02) mg/dL Calcium 8.0 L (8.5-10.1) mg/dL Magnesium 2.5 H (1.8-2.4) mg/dL Crossmatch See Detail 05/03/19 Range/Units 06:32 Hgb 9.7 L (12.0-15.5) g/dL Hct 28.7 L (36.0-46.0) % Sodium (136-145) mmol/L BUN (7-18) mg/dL Creatinine (0.55-1.02) mg/dL Calcium (8.5-10.1) mg/dL Magnesium (1.8-2.4) mg/dL Crossmatch Vital Signs Temperature 36.8 C 05/03/19 15:32 Temperature Source Tympanic 05/03/19 15:32 Pulse 85 05/03/19 15:32 Pulse Rhythm Regular 05/03/19 15:07 Respiratory Rate 17 05/03/19 15:32 Respiratory Effort Non-Labored 05/03/19 15:07 Respiratory Depth Normal 05/03/19 15:07 Respiratory Pattern Normal 05/03/19 15:07 Blood Pressure 122/78 05/03/19 15:32 Blood Pressure Position Supine 04/29/19 04:46 Pulse Oximetry 97 05/03/19 15:32 Respiratory End-tidal CO2 27 04/29/19 17:30 Oxygen Delivery Method Room Air 05/03/19 15:32 Oxygen Flow Rate 0 05/03/19 15:32 Pain Level 0 05/03/19 15:32 Comment 05/02/19 20:25 Intake & Output 05/02/19 05/03/19 05/03/19 23:59 11:59 23:59 Intake Total 1080 / 1320 640 / 890 250 / 890 Output Total 150 / 1100 200 / 400 200 / 400 Balance 930 / 220 440 / 490 50 / 490 Weight 48.9 kg Intake: Oral 730 / 970 640 / 890 250 / 890 Blood Product 350 / 350 Rbc Leuko Reduced Unit 350 / 350 [id number] Output: Urine 150 / 1100 200 / 400 200 / 400 Other: Urine Color Yellow Yellow Yellow Urine Appearance Clear Clear Clear Urine Odor None Comment urine mixed with stool urine mixed with stool couldn't measure Stool Size Moderate Small Stool Characteristics Soft Soft Liquid Formed Voiding Methods Bedside Commode Bedside Commode Bedside Commode Laboratory Results WBC 9.18 k/cumm (4.4-10.8) 05/02/19 06:55 RBC 2.81 m/cumm (4.00-5.20) L 05/02/19 06:55 Hgb 9.7 g/dL (12.0-15.5) L 05/03/19 06:32 Hct 28.7 % (36.0-46.0) L 05/03/19 06:32 MCV 82.6 fL (80-95) 05/02/19 06:55 MCH 28.1 pg (27.0-33.0) 05/02/19 06:55 MCHC 34.1 g/dL (32.0-36.0) 05/02/19 06:55 RDW 16.0 % (11.7-14.6) H 05/02/19 06:55 Plt Count 186 x1000/uL (130-400) 05/02/19 06:55 MPV 13.3 fL (8.0-11.0) H 05/02/19 06:55 Immature Gran % 0.1 04/30/19 06:50 71.0 04/30/19 06:50 16.8 04/30/19 06:50 11.8 04/30/19 06:50 0.1 04/30/19 06:50 0.2 04/30/19 06:50 Absolute Neutrophils 6.85 k/cumm (1.2-6.7) H 04/30/19 06:50 Absolute Lymphocytes 1.62 k/cumm (1.2-3.4) 04/30/19 06:50 Absolute Monocytes 1.14 k/cumm (0.11-0.7) H 04/30/19 06:50 Absolute Eosinophils 0.01 k/cumm (0.0-0.7) 04/30/19 06:50 Absolute Basophils 0.02 k/cumm (0.0-0.2) 04/30/19 06:50 Rbc morph reviewed 04/30/19 06:50 RBC Morphology See below 04/30/19 06:50 2+ 04/30/19 06:50 PT 10.2 sec (9.3-11.0) 04/29/19 05:04 INR 1.0 (0.9-1.1) 04/29/19 05:04 APTT 24.5 sec (21.0-31.4) 04/29/19 05:04 Sodium 132 mmol/L (136-145) L 05/03/19 06:32 Potassium 4.9 mmol/L (3.5-5.1) 05/03/19 06:32 Chloride 101 mmol/L (98-107) 05/03/19 06:32 Carbon Dioxide 22.1 mmol/L (21.0-32.0) 05/03/19 06:32 8.9 mmol/L (3-11) 05/03/19 06:32 BUN 28 mg/dL (7-18) H 05/03/19 06:32 1.03 mg/dL (0.55-1.02) H 05/03/19 06:32 53.13 (mL/min/1.73m2) 05/03/19 06:32 Glucose 92 mg/dL (70-100) 05/03/19 06:32 Calcium 8.0 mg/dL (8.5-10.1) L 05/03/19 06:32 Magnesium 2.5 mg/dL (1.8-2.4) H 05/03/19 06:32 0.2 mg/dL (0.2-1.0) 04/29/19 05:04 AST 9 U/L (15-37) L 04/29/19 05:04 ALT 7 U/L (12-78) L 04/29/19 05:04 204 U/L (46-116) H 04/29/19 05:04 37 U/L (26-192) 04/29/19 05:04 < 0.05 ng/mL (0.00-0.06) 04/29/19 12:25 6.7 g/dL (6.4-8.2) 04/29/19 05:04 2.7 g/dL (3.4-5.0) L 04/29/19 05:04 Yellow (Yellow) 04/29/19 06:10 Clear (Clear) 04/29/19 06:10 6.5 (5-8) 04/29/19 06:10 Ur Specific [place] 1.015 (1.005-1.025) 04/29/19 06:10 Negative mg/dL (Negative) 04/29/19 06:10 Negative mg/dL (Negative) 04/29/19 06:10 Trace-intact (Negative) H 04/29/19 06:10 Negative (Negative) 04/29/19 06:10 Negative (Negative) 04/29/19 06:10 0.2 EU/dL (Up TO 0.2) 04/29/19 06:10 Ur Leukocyte Esterase Negative (Negative) 04/29/19 06:10 0-2 (0-2) 04/29/19 06:10 Negative HPF (0-5) 04/29/19 06:10 Ur Epithelial Cells Rare HPF (Negative) 04/29/19 06:10 Negative HPF (Negative) 04/29/19 06:10 Rare HPF (Negative) 04/29/19 06:10 Negative LPF (Negative) 04/29/19 06:10 Negative (Negative) 04/29/19 06:10 Ur Culture Indicated? No 04/29/19 06:10 Negative mg/dL (Negative) 04/29/19 06:10 Patient ABO/Rh O Positive 05/02/19 06:55 Antibody Screen Negative 05/02/19 06:55 Crossmatch See Detail 05/02/19 06:55
[2019-05-03 20:00] VITALS: BP 123/74; PULSE 61; RESP 17; TEMP 37.1; O2SAT 97
[2019-05-03] MEDS: Carvedilol 6.25 MG TAB PO (20:05)
[2019-05-04] VITALS (7 sets, daily range): BP systolic 94–123; BP diastolic 58–72; PULSE 58–104; RESP 16–20; TEMP 36.4–37.1; O2SAT 97–100
[2019-05-04 06:57] LABS: Abs Immature Grans 0.02 k/cumm (0.0-0.09); Absolute Basophil Count 0.06 k/cumm (0.0-0.2); Absolute Eosinophil Count 0.62 k/cumm (0.0-0.7); Absolute Lymphocyte Count 1.34 k/cumm (1.2-3.4); Absolute Monocyte Count 1.14 k/cumm (0.11-0.7); Basophils % 0.8; Eosinophils % 8.2; HCT 29.8 % (36.0-46.0); HGB 10.2 g/dL (12.0-15.5); Immature Grans % 0.3; Lymphocytes % 17.7; Mean Corp. HGB Concentration 34.2 g/dL (32.0-36.0); Mean Corpuscular Hemoglobin 28.7 pg (27.0-33.0); Mean Corpuscular Volume 83.7 fL (80-95); Mean Platelet Volume 12.8 fL (8.0-11.0); Platelet Count 258 x1000/uL (130-400); RBC 3.56 m/cumm (4.00-5.20); RBC Distribution Width 16.2 % (11.7-14.6); White Blood Cell Count 7.58 k/cumm (4.4-10.8)
[2019-05-04 07:05] LABS: Anion Gap 8.4 mmol/L (3-11); BUN 28 mg/dL (7-18); CO2 24.6 mmol/L (21.0-32.0); CREATININE 1.17 mg/dL (0.55-1.02); Calcium 8.3 mg/dL (8.5-10.1); Chloride 99 mmol/L (98-107); Estimated GFR 45.86 (mL/min/1.73m2); Glucose 88 mg/dL (70-100); Magnesium 2.1 mg/dL (1.8-2.4); Potassium 4.4 mmol/L (3.5-5.1); Sodium 132 mmol/L (136-145)
[2019-05-04] MEDS: DULoxetine 30 MG CAP PO (07:53)
[2019-05-04] MEDS: Carvedilol 6.25 MG TAB PO ×2 (07:53→20:28)
[2019-05-04] MEDS: Esomeprazole 40 MG CAPCR PO (07:53)
[2019-05-04] MEDS: Aspirin E.C. 81 MG TABEC PO (07:53)
[2019-05-04] MEDS: Cholecalciferol (Vitamin D3) 1,000 UNIT TAB 1000 UNITS PO (07:53)
[2019-05-04] MEDS: Calcium Carbonate 1.25 GM TAB PO ×2 (07:53→20:28)
[2019-05-04] MEDS: Magnesium Oxide 400 MG TAB PO (07:53)
[2019-05-04] MEDS: HYDROmorphone 2 MG TAB PO ×2 (07:54→13:06)
[2019-05-04] MEDS: Furosemide 20 MG TAB PO (07:54)
[2019-05-04 08:00] LABS: Diff Comment Agrees w/ Instrument; RBC Morphology Normal
[2019-05-04] MEDS: Lisinopril 5 MG TAB PO (08:36)
--- NOTE | 2019-05-04 09:13 | PTTR_ITS ---
Date of service: 05/04/19 Time of Service: 09:13 PT Notes 05/04/19 SUBJECTIVE: Oralia stating she is doing well today. She feels she is transferring with less assistance. OBJECTIVE: Seated in chair. Agreeable to PT treatment. TRANSFERS Sit to stand: CGA Stand to sit: SBA GAIT Device: FWW Weight bearing: AT L Assist: CGA Distance: 35' Deviation: Step to pattern Therex: Seated LE strengthening and ROM activities. See flow sheet. ASSESSMENT: Progressing well with gait distance and transfers. She does tend to be quite stiff for the first few steps and this improves with distance. PLAN: Continue current POC. Treatment time: 25 minutes [id number], [id number] Arabella Gonzalez PTA Clinic location: [facility] [place], [place]
--- NOTE | 2019-05-04 11:25 | W.PM.PROGNOT ---
Date of Service Date of service: 05/04/19 Time of Service: 11:25 Assessment and Plan (1) Closed left hip fracture: Current visit: Yes Status: Acute Following a mechanical fall. S/p ORIF on 04/29, with expected post-op drop in Hemoglobin. - Continue pain control and Physical Therapy. Monitor H/H. Patient scheduled for SNF placement tomorrow morning. (2) Hypotension: Current visit: No Status: Resolved In setting of blood loss and anemia. Appears improved following transfusion. Furosemide was reinitiated yesterday, and Lisinopril this morning. Monitor renal function carefully. (3) Anemia: Current visit: No Status: Chronic Post-op - has required 2 Units total of PRBCs. Hgb appears stable. Continue to monitor. (4) Cardiomyopathy, nonischemic: Current visit: No Status: Acute LVEF 35%. Appears euvolemic. Continue BB and Furosemide, with low dose ASHWINI-I restarting today. Monitor blood pressure. (5) Chronic kidney disease, stage 3: Current visit: No Status: Acute Noted. Creatinine appears stable. (6) History of mitral valve repair: Current visit: No Status: Chronic Mention of annular ring prosthesis by ECHO 10/2018, with moderate MR. (7) DVT prophylaxis: Current visit: Yes Status: Acute SC Lovenox. (8) Advance directive on file: Current visit: Yes Status: Acute Full Code. Subjective Interval history since last seen: 68 year old woman with a prior history of CHF, admitted from [facility] Emergency Department on 04/29 with a hip fracture following a mechanical fall. Mrs. Castillo has a Past Medical History significant for a dilated, Non-ischemic Cardiomyopathy with an LVEF 35% s/p AICD. Her other history includes MR s/p repair, Mod-severe TR, Moderate PHTN, CKD, and Osteoporosis. She suffered a mechanical fall at home after stepping on a dog toy while returning to bed from the bathroom. She was diagnosed with a Comminuted Intertrochanteric Fracture of the left femur, admitted, and underwent ORIF on 04/29. Since her surgery the patient has suffered from post-op blood loss and symptomatic anemia with hypotension, receiving a total of 2 units of PRBCs. This morning the patient again has no complaints and feels improved overall. Blood pressure is improved and has remained stable. Hemoglobin appears stable as well. No overnight events reported. Remains afebrile. Exam Narrative Exam Narrative: General: Patient appears comfortable, AAOX3, NAD Neck: Supple CV: Regular, nontachycardic, S1S2, 3/6 LLSB murmur appreciated Pulmonary: Clear to auscultation bilaterally, no crackles, wheezing, or rhonchi Abdomen: + Bowel Sounds, soft, nontender, nondistended Vascular: No lower extremity edema Psych: Normal mood and affect. Objective Objective Clinical Data: Abnormal lab results 05/04/19 05/04/19 Range/Units 06:15 06:15 RBC 3.56 L (4.00-5.20) m/cumm Hgb 10.2 L (12.0-15.5) g/dL Hct 29.8 L (36.0-46.0) % RDW 16.2 H (11.7-14.6) % MPV 12.8 H (8.0-11.0) fL Absolute Monocytes 1.14 H (0.11-0.7) k/cumm Sodium 132 L (136-145) mmol/L BUN 28 H (7-18) mg/dL Creatinine 1.17 H (0.55-1.02) mg/dL Calcium 8.3 L (8.5-10.1) mg/dL Vital Signs Temperature 37 C 05/04/19 08:41 Temperature Source Temporal Artery Scan 05/04/19 08:41 Pulse 104 H 05/04/19 08:41 Pulse Rhythm Regular 05/04/19 08:45 Respiratory Rate 19 05/04/19 08:41 Respiratory Effort Non-Labored 05/04/19 08:45 Respiratory Depth Normal 05/04/19 08:45 Respiratory Pattern Normal 05/04/19 08:45 Blood Pressure 123/70 05/04/19 08:41 Blood Pressure Position Supine 04/29/19 04:46 Pulse Oximetry 99 05/04/19 08:41 Respiratory End-tidal CO2 27 04/29/19 17:30 Oxygen Delivery Method Room Air 05/04/19 08:41 Oxygen Flow Rate 0 05/04/19 08:41 Pain Level 6 05/04/19 08:52 Comment 05/02/19 20:25 Intake & Output 05/03/19 05/03/19 05/04/19 11:59 23:59 11:59 Intake Total 640 / 1130 490 / 1130 500 / 500 Output Total 200 / 800 600 / 800 1250 / 1250 Balance 440 / 330 -110 / 330 -750 / -750 Weight 48.9 kg 51 kg Intake: Oral 640 / 1130 490 / 1130 500 / 500 Output: Urine 200 / 800 600 / 800 1250 / 1250 Other: Urine Color Yellow Yellow Yellow Urine Appearance Clear Clear Clear Urine Odor None None None Comment urine mixed with stool couldn't measure urine mixed with stool Stool Size Small Small Smear Stool Characteristics Soft Soft Soft Formed Formed Voiding Methods Bedside Commode Bedside Commode Bedside Commode Laboratory Results WBC 7.58 k/cumm (4.4-10.8) 05/04/19 06:15 RBC 3.56 m/cumm (4.00-5.20) L 05/04/19 06:15 Hgb 10.2 g/dL (12.0-15.5) L 05/04/19 06:15 Hct 29.8 % (36.0-46.0) L 05/04/19 06:15 MCV 83.7 fL (80-95) 05/04/19 06:15 MCH 28.7 pg (27.0-33.0) 05/04/19 06:15 MCHC 34.2 g/dL (32.0-36.0) 05/04/19 06:15 RDW 16.2 % (11.7-14.6) H 05/04/19 06:15 Plt Count 258 x1000/uL (130-400) 05/04/19 06:15 MPV 12.8 fL (8.0-11.0) H 05/04/19 06:15 Immature Gran % 0.3 05/04/19 06:15 58.0 05/04/19 06:15 17.7 05/04/19 06:15 15.0 05/04/19 06:15 8.2 05/04/19 06:15 0.8 05/04/19 06:15 Absolute Neutrophils 4.40 k/cumm (1.2-6.7) 05/04/19 06:15 Absolute Lymphocytes 1.34 k/cumm (1.2-3.4) 05/04/19 06:15 Absolute Monocytes 1.14 k/cumm (0.11-0.7) H 05/04/19 06:15 Absolute Eosinophils 0.62 k/cumm (0.0-0.7) 05/04/19 06:15 Absolute Basophils 0.06 k/cumm (0.0-0.2) 05/04/19 06:15 Agrees w/ instrument 05/04/19 06:15 RBC Morphology Normal 05/04/19 06:15 2+ 04/30/19 06:50 PT 10.2 sec (9.3-11.0) 04/29/19 05:04 INR 1.0 (0.9-1.1) 04/29/19 05:04 APTT 24.5 sec (21.0-31.4) 04/29/19 05:04 Sodium 132 mmol/L (136-145) L 05/04/19 06:15 Potassium 4.4 mmol/L (3.5-5.1) 05/04/19 06:15 Chloride 99 mmol/L (98-107) 05/04/19 06:15 Carbon Dioxide 24.6 mmol/L (21.0-32.0) 05/04/19 06:15 8.4 mmol/L (3-11) 05/04/19 06:15 BUN 28 mg/dL (7-18) H 05/04/19 06:15 1.17 mg/dL (0.55-1.02) H 05/04/19 06:15 45.86 (mL/min/1.73m2) 05/04/19 06:15 Glucose 88 mg/dL (70-100) 05/04/19 06:15 Calcium 8.3 mg/dL (8.5-10.1) L 05/04/19 06:15 Magnesium 2.1 mg/dL (1.8-2.4) 05/04/19 06:15 0.2 mg/dL (0.2-1.0) 04/29/19 05:04 AST 9 U/L (15-37) L 04/29/19 05:04 ALT 7 U/L (12-78) L 04/29/19 05:04 204 U/L (46-116) H 04/29/19 05:04 37 U/L (26-192) 04/29/19 05:04 < 0.05 ng/mL (0.00-0.06) 04/29/19 12:25 6.7 g/dL (6.4-8.2) 04/29/19 05:04 2.7 g/dL (3.4-5.0) L 04/29/19 05:04 Yellow (Yellow) 04/29/19 06:10 Clear (Clear) 04/29/19 06:10 6.5 (5-8) 04/29/19 06:10 Ur Specific [place] 1.015 (1.005-1.025) 04/29/19 06:10 Negative mg/dL (Negative) 04/29/19 06:10 Negative mg/dL (Negative) 04/29/19 06:10 Trace-intact (Negative) H 04/29/19 06:10 Negative (Negative) 04/29/19 06:10 Negative (Negative) 04/29/19 06:10 0.2 EU/dL (Up TO 0.2) 04/29/19 06:10 Ur Leukocyte Esterase Negative (Negative) 04/29/19 06:10 0-2 (0-2) 04/29/19 06:10 Negative HPF (0-5) 04/29/19 06:10 Ur Epithelial Cells Rare HPF (Negative) 04/29/19 06:10 Negative HPF (Negative) 04/29/19 06:10 Rare HPF (Negative) 04/29/19 06:10 Negative LPF (Negative) 04/29/19 06:10 Negative (Negative) 04/29/19 06:10 Ur Culture Indicated? No 04/29/19 06:10 Negative mg/dL (Negative) 04/29/19 06:10 Patient ABO/Rh O Positive 05/02/19 06:55 Antibody Screen Negative 05/02/19 06:55 Crossmatch See Detail 05/02/19 06:55
[2019-05-04] MEDS: Enoxaparin 30 MG/0.3 ML SYR SC (15:29)
--- NOTE | 2019-05-04 15:50 | CMPROGNOTE_ITS ---
Care Management Progress Note S/O: Oralia was lying in bed appeared comfortable and in good spirits. A: 68 year old female admitted to [facility] 04/29/19 for L Hip Fracture P: Oralia will continue to be closely monitored for pain management and work with physical therapy. She will discharge to [facility] when ready per MD; tentative date of 05/05/19-anticipate the facility's W/C van will be available for transport. CM to confirm discharge planning considerations.
[2019-05-05] MEDS: HYDROmorphone 2 MG TAB PO (00:08)
[2019-05-05 03:47] VITALS: BP 109/70; PULSE 74; RESP 16; TEMP 36.9; O2SAT 100
[2019-05-05 07:16] LABS: Abs Immature Grans 0.02 k/cumm (0.0-0.09); Absolute Basophil Count 0.03 k/cumm (0.0-0.2); Absolute Eosinophil Count 0.55 k/cumm (0.0-0.7); Absolute Lymphocyte Count 1.53 k/cumm (1.2-3.4); Absolute Monocyte Count 1.09 k/cumm (0.11-0.7); Absolute Neutrophil Count 2.27 k/cumm (1.2-6.7); Basophils % 0.5; HCT 30.4 % (36.0-46.0); HGB 10.3 g/dL (12.0-15.5); Immature Grans % 0.4; Lymphocytes % 27.9; Mean Corp. HGB Concentration 33.9 g/dL (32.0-36.0); Mean Corpuscular Hemoglobin 28.6 pg (27.0-33.0); Mean Corpuscular Volume 84.4 fL (80-95); Mean Platelet Volume 12.9 fL (8.0-11.0); Monocytes % 19.9; Neutrophils % 41.3; Platelet Count 262 x1000/uL (130-400); RBC Distribution Width 16.7 % (11.7-14.6); White Blood Cell Count 5.49 k/cumm (4.4-10.8)
[2019-05-05 07:32] LABS: Anion Gap 7.5 mmol/L (3-11); BUN 26 mg/dL (7-18); CO2 25.5 mmol/L (21.0-32.0); CREATININE 1.19 mg/dL (0.55-1.02); Calcium 8.4 mg/dL (8.5-10.1); Chloride 99 mmol/L (98-107); Estimated GFR 44.97 (mL/min/1.73m2); Glucose 84 mg/dL (70-100); Magnesium 1.9 mg/dL (1.8-2.4); Potassium 4.5 mmol/L (3.5-5.1); Sodium 132 mmol/L (136-145)
[2019-05-05 08:18] VITALS: BP 118/77; PULSE 75; RESP 16; TEMP 37.4; O2SAT 94
[2019-05-05] MEDS: Calcium Carbonate 1.25 GM TAB PO (08:26)
[2019-05-05] MEDS: Furosemide 20 MG TAB PO (08:26)
[2019-05-05] MEDS: DULoxetine 30 MG CAP PO (08:26)
[2019-05-05] MEDS: Esomeprazole 40 MG CAPCR PO (08:26)
[2019-05-05] MEDS: Magnesium Oxide 400 MG TAB PO (08:26)
[2019-05-05] MEDS: Carvedilol 6.25 MG TAB PO (08:26)
[2019-05-05] MEDS: Cholecalciferol (Vitamin D3) 1,000 UNIT TAB 1000 UNITS PO (08:26)
[2019-05-05] MEDS: Lisinopril 5 MG TAB PO (08:26)
[2019-05-05] MEDS: Aspirin E.C. 81 MG TABEC PO (08:26)
[2019-05-05] MEDS: fentaNYL 50 MCG PATCH TD (10:37)
[2019-05-05] MEDS: fentaNYL 12 MCG PATCH TD (10:37)
--- NOTE | 2019-05-05 11:00 | DSE_ITS ---
Date of service: 05/05/19 Time of Service: 11:00 DS: Diagnosis Discharge Diagnosis (1) Closed left hip fracture: Status: Acute (2) Hypotension: Status: Resolved (3) Anemia: Status: Chronic (4) Cardiomyopathy, nonischemic: Status: Acute (5) Chronic kidney disease, stage 3: Status: Acute (6) History of mitral valve repair: Status: Chronic (7) DVT prophylaxis: Status: Acute (8) Advance directive on file: Status: Acute Discharge Plan Disposition Patient Disposition: SNF (LEVEL 1) [facility] Condition: Stable Discharge Details Chief Complaint: Orthopedic Clinical Impression: Closed intertrochanteric fracture of left hip Reason For Visit: L HIP FRACTURE Admit Date/Time: 04/29/19 06:08 Admit Provider: Real Schaeffer Attending Provider: Real Schaeffer Primary Care Provider: Paula Vazquez ED Provider: Jamie Muniz Hospital Course Hospital Course: Chief Complaint: Fall with Hip Pain HPI: 68 year old woman with a prior history of CHF, admitted from [facility] Emergency Department on 04/29 with a hip fracture following a mechanical fall. Mrs. Castillo has a Past Medical History significant for a dilated, Non-ischemic Cardiomyopathy with an LVEF 35% s/p AICD. Her other history includes MR s/p repair, Mod-severe TR, Moderate PHTN, CKD, and Osteoporosis. She suffered a mechanical fall at home after stepping on a dog toy while returning to bed from the bathroom. She was diagnosed with a Comminuted Intertrochanteric Fracture of the left femur, admitted, and underwent ORIF on 04/29. Since her surgery the patient has suffered from post-op blood loss and symptomatic anemia with hypotension, receiving a total of 2 units of PRBCs. This morning the patient again has no complaints and feels improved overall. She continues to work with PT. Blood pressure is improved and has remained stable. H emoglobin appears stable, as well renal function with reinitiation of Furosemide and ASHWINI-I. No overnight events reported. Remains afebrile. Hospital Course: (1) Closed left hip fracture: Following a mechanical fall. S/p ORIF on 04/29, with expected post-op drop in Hemoglobin. - Being discharged to [facility]/ for SNF and PT. - Recommendations for staple removal and ortho follow-up 2 weeks post-op (On 05/13). - Hemoglobin has remained stable without any further evidence of bleeding post- op. - Continue pain control. (2) Hypotension: In setting of blood loss and anemia. Resolved following transfusion. (3) Anemia: Post-op - has required 2 Units total of PRBCs. Hgb continues to be stable. Continue to monitor. (4) Cardiomyopathy, nonischemic: LVEF 35%. Appears euvolemic. Continue BB and Furosemide, with low dose ASHWINI-I restarted on 05/04. (5) Chronic kidney disease, stage 3: Noted. Creatinine appears stable. (6) History of mitral valve repair: Mention of annular ring prosthesis by ECHO 10/2018, with moderate MR. (7) DVT prophylaxis: Patient was maintained on 30mg SC Lovenox. Will change to BID aspirin until follow-up with Ortho. (8) Advance directive on file: Full Code. (9) Disposition: Discharge to [facility] today for further rehab needs, with follow-up with ortho within 2 weeks of patient's operation (on 04/29). Recommend staple removal in 14 days post-op (05/13/2019). Home Meds and New Rx's Prescriptions: New fentanyl [Duragesic] 50 mcg/hr Patch 72 Hour 50 mcg transdermal Q72H Qty: 10 RF: 0 fentanyl 12 mcg/hr Patch 72 Hour 12 mcg transdermal Q72H Qty: 10 RF: 0 aspirin 81 mg tablet,chewable 81 mg PO BID Qty: 1 RF: 0 calcium carbonate [Oyster Shell Calcium 500] 500 mg calcium (1,250 mg) Tablet 1.25 g PO BID Qty: 0 RF: 0 Continued carvedilol 6.25 mg tablet 6.25 mg PO BID 90 Days Qty: 180 RF: 3 magnesium oxide 400 MG tablet 400 mg PO BID Qty: 180 RF: 3 furosemide 20 MG tablet 20 mg PO DAILY RF: 0 duloxetine [Cymbalta] 30 MG capsule,delayed release(DR/EC) 30 mg PO DAILY RF: 0 docusate sodium [Colace] 100 MG capsule 100 mg PO BID PRN PRNRF: 0 cholecalciferol (vitamin D3) 1,000 UNITS tablet 1,000 units PO DAILY RF: 0 potassium chloride 10 MEQ tablet extended release 10 meq PO DAILY RF: 0 lisinopril 5 MG tablet 5 mg PO DAILY Qty: 0 RF: 0 cyclobenzaprine 10 MG tablet 5 - 10 mg PO HS MDD 5-10 PRNQty: 15 RF: 0 esomeprazole magnesium 40 mg Capsule,Delayed Release(Dr/Ec) 40 mg PO DAILY RF: 0 Discontinued aspirin [Adult Low Dose Aspirin] 81 MG tablet,delayed release (DR/EC) 81 mg PO DAILY RF: 0 fentanyl [Duragesic] 50 MCG patch 72 hour 62 mcg Transdermal Q72H RF: 0 Discharge Instructions Stand Alone Forms: Nursing Discharge Form Referrals: Jamie Sehldon MD [ [facility] STAFF PHYSICIAN] - 05/13/19 10:45 am Activity:: As per Physical Therapy Recommendations Equipment/Supplies:: No Equipment Needed Diet:: Low Sodium Discharge Orders Discharge Orders: Discharge Order (Routine); Ordered 05/05/19 Ordered By: Ladarius Solorzano DS: Data Vitals/I&O Vitals and I&O: Vital Signs Temperature 37.4 C 05/05/19 08:18 Temperature Source Tympanic 05/05/19 08:18 Pulse 75 05/05/19 08:18 Pulse Rhythm Regular 05/05/19 10:27 Respiratory Rate 16 05/05/19 08:18 Respiratory Effort Non-Labored 05/05/19 10:27 Respiratory Depth Normal 05/05/19 10:27 Respiratory Pattern Normal 05/05/19 10:27 Blood Pressure 118/77 05/05/19 08:18 Blood Pressure Position Supine 04/29/19 04:46 Pulse Oximetry 94 L 05/05/19 08:18 Respiratory End-tidal CO2 27 04/29/19 17:30 Oxygen Delivery Method Room Air 05/05/19 08:18 Oxygen Flow Rate 0 05/05/19 08:18 Pain Level 8 05/04/19 23:35 Comment 05/04/19 23:35 Intake & Output 05/04/19 05/04/19 05/05/19 11:59 23:59 11:59 Intake Total 500 / 1460 960 / 1460 300 / 300 Output Total 1250 / 2350 1100 / 2350 1050 / 1050 Balance -750 / -890 -140 / -890 -750 / -750 Weight 51 kg 52.5 kg Intake: Oral 500 / 1460 960 / 1460 300 / 300 Output: Urine 1250 / 2350 1100 / 2350 1050 / 1050 Other: Urine Color Yellow Yellow Yellow Urine Appearance Clear Clear Clear Urine Odor None Normal Stool Size Smear Small Moderate Stool Characteristics Soft Soft Soft Brown Formed Brown Voiding Methods Bedside Commode Bedside Commode Bedside Commode Completed studies during hospitalization [Text1]: Exam(s) 04/29/2019 a RAD:XR chest 1V in DI dept SYMPTOM/DIAGNOSIS: FALL, LT HIP PAIN SUPINE AP CHEST: 04/29 The heart is enlarged. There is a transvenous cardiac pacemaker in position. Apparent left atrial clamp again noted in place. Vertebroplasties again noted. Lungs are clear and well expanded. CONCLUSION: No evidence of acute change. Exam(s) 04/29/2019 a RAD:XR hip LT complete & AP pelvis SYMPTOM/DIAGNOSIS: FALL, LT PAIN LEFT HIP: 04/29/19 Two views were obtained. There is a comminuted intertrochanteric fracture of the femur with marked varus angulation. No additional fracture seen on these limited views. Exam(s) 04/29/2019 a RAD:XR hip LT in OR SYMPTOMS/DIAGNOSIS: LEFT HIP FX C-ARM FLUOROSCOPY OF THE LEFT HIP: Fluoroscopy Time: 95.7 Fluoroscopy was provided in the OR for Dr. Sheldon. Hardcopy images show placement of hardware for fracture fixation. The alignment appears anatomic. Labs on day of discharge: Labs from last 24 hours 05/05/19 05/05/19 06:25 06:25 WBC 5.49 RBC 3.60 L Hgb 10.3 L Hct 30.4 L MCV 84.4 MCH 28.6 MCHC 33.9 RDW 16.7 H Plt Count 262 MPV 12.9 H Immature Gran % 0.4 Neutrophils % 41.3 Lymphocytes % 27.9 Monocytes % 19.9 Eosinophils % 10.0 Basophils % 0.5 Absolute Neutrophils 2.27 Absolute Lymphocytes 1.53 Absolute Monocytes 1.09 H Absolute Eosinophils 0.55 Absolute Basophils 0.03 Sodium 132 L Potassium 4.5 Chloride 99 Carbon Dioxide 25.5 Anion Gap 7.5 BUN 26 H Creatinine 1.19 H Estimated GFR/1.73 m2 44.97 Glucose 84 Calcium 8.4 L Magnesium 1.9 PFS Medical History Cardiomyopathy, nonischemic (Acute) Chronic kidney disease, stage 3 (Acute) Chronic systolic CHF (congestive heart failure) (Chronic) Compression fracture of lumbar vertebra (Acute) Dilated cardiomyopathy (Chronic) Mitral regurgitation (Chronic) Osteoporosis (Chronic) Surgical History History of mitral valve repair (Chronic) ICD (implantable cardioverter-defibrillator) in place (Chronic) Family History Mother Heart disease Brother Heart disease Maternal Uncle Heart disease Maternal Uncle Diabetes Father Hypertension Prostate cancer Social History Smoking/Tobacco Use Status: Former Tobacco Use Pack-years: 4 Tobacco: How many years used: 7 Alcohol Intake: former Drug use: Never Do you feel safe at home: Yes Do you feel safe in your relationship?: Yes
--- NOTE | 2019-05-05 11:01 | CMDISCH_ITS ---
LACE Index Scoring Tool - Questions: Length of Stay (in days): 7 - 13 Acuity (Admit via E.D.?): Yes Comorbidities: Congestive Heart Failure, Liver or Renal Disease E.D. Visits: 1 - Answers: Total Score: 14 Risk of Readmission: High Risk Care Management Discharge Reason for Hospitalization: L HIP FRACTURE Discharge Plan: She is being discharged to [facility] via [facility] volunteer train driver at 1:20 PM today. Spoke with [facility] coordinator Tevin Lozano who will have [facility] be in touch with [facility] to assist with discharge home when she is ready. Patient/Family Education Needs: RN to review d/c instructions with patient and [facility] staff re meds and activityt levels. Patient understands reason for hos pitalization. Services Needed at Discharge: Physical Therapy, [facility] Facility
[2019-05-05 11:38] VITALS: BP 127/91; PULSE 89; RESP 16; TEMP 37.3; O2SAT 99
--- NOTE | 2019-05-05 12:28 | NUR.NOTE ---
Nursing Note: Called report to TATE Mckeon @ [facility]. Answered all questions.
--- NOTE | 2019-05-05 16:29 | PT.INDS ---
Date of service: 05/05/19 Time of Service: 16:29 PT Notes Date: 05/05/2019 Referring Doctor: Jamie Sheldon MD PT Orders: PT CONSULT: Mobilize postop TFN L. WBAT to left leg. Precautions: Fall. Standard. WBAT to left LE Treatment dates: 04/30/2019?05/05/2019 This document serves as a summary of care. No PT services were provided on this date. Patient Profile/Admitting Diagnosis: Patient is a 68-year-old female who presented to the ED on 04/29/2019 with chief complaints of left hip pain after sustaining a mechanical fall tripping on her dog's toys while she was on her way back from the bathroom to her bedroom. She fell backwards and landed on her left hip first. Patient is diagnosed with a closed intertrochanteric fracture of the left femur and is status post ORIF. She participated in 7 PT sessions over 5 days, although with continued limitations necessitating transition to usp facility prior to return home. She was discharged to [facility] today Subjective: None obtained, as patient was discharged to [facility] today Objective: ROM: Right Upper Extremity: Shoulder Flexion WFL. Shoulder abduction WFL. Elbow flexion WFL. Wrist flexion WFL. Functional opening and closing of hand WFL. Left Upper Extremity: Shoulder Flexion WFL. Shoulder abduction WFL. Elbow flexion WFL. Wrist flexion WFL. Functional opening and closing of hand WFL. Right Lower Extremity: Hip flexion WFL. Hip abduction WFL. Knee flexion WFL. Ankle dorsiflexion WFL. Ankle plantarflexion WFL. Left Lower Extremity: Hip flexion 0-5 degrees with pain limiting movement. Hip abduction 0-5 degrees with pain limiting movement. Knee flexion 0-5 degrees with pain limiting movement. Ankle dorsiflexion WFL. Ankle plantarflexion WFL. Strength: Right Upper Extremity: Shoulder flexors 5/5. Shoulder abductors 5/5. Elbow flexors 5/5. Elbow extensors 5/5. Public Service Officer strong. Left Upper Extremity: Shoulder flexors 5/5. Shoulder abductors 5/5. Elbow flexors 5/5. Elbow extensors 5/5. Public Service Officer strong. Right Lower Extremity: Hip flexors 5/5. Hip abductors 5/5. Knee flexors 5/5. Knee extensors 5/5. Ankle dorsiflexors 5/5. Ankle plantarflexors 5/5. Left Lower Extremity:Hip flexors 2-/5. Hip abductors 2-/5. Knee flexors 2-/5. Knee extensors 2-/5. Ankle dorsiflexors 3+/5. Ankle plantarflexors 3+/5. Sensation: Intact as to pain and pressure on bilateral lower extremities. Bed Mobility/Transfers: Supine?sit: SBA with HOB at 20 degrees Sit?supine: Min assist with HOB flat Sit?stand: CGA Stand?sit: SBA Gait: Patient was able to demonstrate ambulation up to 35 feet with FW W, CGA, step-to gait pattern Balance: Static sitting: Fair Dynamic sitting: Fair Static standing: Fair Dynamic standing: Fair Assessment: Patient presents with clinical signs and symptoms consistent with current/admitting diagnoses that have resulted to mobility limitations, gait instability, generalized weakness, and impairment of motor control. She participated in 7 PT sessions over 5 days, although with continued limitations necessitating transition to usp facility prior to return home. Patient has made progress towards established goals, with need for ongoing PT intervention in SNF setting to maximize safety and mobility. Goals: Goals X1 week 1. Supine-Sit independent (PROGRESSING TOWARD) 2. Sit-Supine independent(PROGRESSING TOWARD) 3. Sit-Stand independent(PROGRESSING TOWARD) 4. Stand-Sit independent(PROGRESSING TOWARD) 5. Bed-Chair independent(PROGRESSING TOWARD) 6. Chair-Bed independent(PROGRESSING TOWARD) 7. Independent gait on level surface with use of least restrictive device for at least 300 feet without report of pain nor dyspnea(PROGRESSING TOWARD) 8. Independent with home exercise program (PROGRESSING TOWARD) 9. Good static and dynamic standing balance/tolerance(PROGRESSING TOWARD) Plan of Care/Treatment Plan: D/C from PT in acute care setting DISCHARGE RECOMMENDATIONS: Patient will benefit from usp facility placement in order to progress mobility level, strength, and balance in preparation for a safe discharge to home. Thank you very much for this referral. Nae Chairez, PT, DPT [facility]
== END 2019-05-05 13:12 | disposition skilled nursing facility (03) | DRG 481 ==
LOC: ER 08:48 → MS 09:00
PROVIDERS: Internal Medicine; Orthopaedic Surgery; Admitting Provider Family Medicine; Emergency Provider Emergency Medicine; PCP Physician Assistant Medical; Visit Provider Internal Medicine
PROC: 0QS706Z Reposition Left Upper Femur with Intramedullary Internal Fixation Device, Open Approach (ICD-10-PCS; CPT 27245; principal; 2019-04-29 14:30)
DX: S72.142A Displaced intertrochanteric fracture of left femur, initial encounter for closed fracture (principal); I50.22 Chronic systolic (congestive) heart failure; D62 Acute posthemorrhagic anemia; W01.0XXA Fall on same level from slipping, tripping and stumbling without subsequent striking against object, initial encounter; Y92.002 Bathroom of unspecified non-institutional (private) residence as the place of occurrence of the external cause; M81.0 Age-related osteoporosis without current pathological fracture; I34.0 Nonrheumatic mitral (valve) insufficiency; N18.3 Chronic kidney disease, stage 3 (moderate); D50.9 Iron deficiency anemia, unspecified; I95.9 Hypotension, unspecified; E86.0 Dehydration
CPT/HCPCS: 27245; 36415; 36430; 51702; 80048; 80053; 82550; 85027; 86850; 86900; 86901; 86920; 93005; 96361; 96374; 96376; 97110; 97162; 97530; 99223; 99232; 99239; 99285; NC; 71045; 73501; 73502; 81003; 81015; 83735; 84484; 85014; 85018; 85025; 85610; 85730; 93010; 99284; J0690; J1650; J1885; J2250; J2405; J3475; P9016

== ENCOUNTER 2019-05-05 09:30 | Outpatient (CLI) | payer MEDICARE, MEDICAID, SELFPAY | END 2019-05-05 09:50 | PROVIDERS: PCP Physician Assistant Medical; Visit Provider Family Medicine | DX: S72.002D Fracture of unspecified part of neck of left femur, subsequent encounter for closed fracture with routine healing (principal); I42.9 Cardiomyopathy, unspecified; N18.3 Chronic kidney disease, stage 3 (moderate) | CPT/HCPCS: 99305 ==

== ENCOUNTER 2019-06-06 12:44 | Outpatient (REF) | payer MEDICARE, MEDICAID, SELFPAY ==
[2019-06-06 19:12] LABS: Abs Immature Grans 0.02 k/cumm (0.0-0.09); Absolute Basophil Count 0.03 k/cumm (0.0-0.2); Absolute Eosinophil Count 0.32 k/cumm (0.0-0.7); Absolute Lymphocyte Count 1.83 k/cumm (1.2-3.4); Absolute Monocyte Count 0.49 k/cumm (0.11-0.7); Absolute Neutrophil Count 3.75 k/cumm (1.2-6.7); Basophils % 0.5; HCT 34.8 % (36.0-46.0); HGB 11.7 g/dL (12.0-15.5); Immature Grans % 0.3; Lymphocytes % 28.4; Mean Corp. HGB Concentration 33.6 g/dL (32.0-36.0); Mean Corpuscular Hemoglobin 28.6 pg (27.0-33.0); Mean Corpuscular Volume 85.1 fL (80-95); Mean Platelet Volume 13.2 fL (8.0-11.0); Monocytes % 7.6; Neutrophils % 58.2; Platelet Count 307 x1000/uL (130-400); RBC 4.09 m/cumm (4.00-5.20); RBC Distribution Width 15.8 % (11.7-14.6); White Blood Cell Count 6.44 k/cumm (4.4-10.8)
[2019-06-06 19:24] LABS: Magnesium 1.5 mg/dL (1.8-2.4)
== END 2019-06-06 13:04 ==
LOC: NCHCN 12:44
PROVIDERS: PCP Physician Assistant Medical; Visit Provider Physician Assistant Medical
DX: D64.9 Anemia, unspecified (principal); E83.42 Hypomagnesemia
CPT/HCPCS: 83735; 85025

== ENCOUNTER 2019-06-10 10:36 | Outpatient (CLI) | payer MEDICARE, MEDICAID, SELFPAY ==
--- NOTE | 2019-06-10 10:29 | DI.RAD_ITS ---
EXAM: XR HIP LT COMPLETE AP PELVIS INDICATION: f/u. COMPARISON: XR hip LT complete AP pelvis from 05/13/2019 TECHNIQUE: 2D digital imaging was performed. FINDINGS: When compared with the previous examination, there has been no interval change in the fracture alignm ent or orthopedic hardware.
== END 2019-06-10 10:56 ==
PROVIDERS: PCP Physician Assistant Medical; Referring Provider Physician Assistant Medical; Visit Provider Orthopaedic Surgery
DX: S72.142A Displaced intertrochanteric fracture of left femur, initial encounter for closed fracture (principal); X58.XXXA Exposure to other specified factors, initial encounter
CPT/HCPCS: 73502

== ENCOUNTER → 2019-07-07 13:02 | Outpatient (BNVA) | payer MEDICARE, MEDICAID, SELFPAY | PROVIDERS: PCP Physician Assistant Medical; Referring Provider Physician Assistant Medical; Visit Provider Internal Medicine Cardiovascular Disease | DX: I42.8 Other cardiomyopathies (principal); I34.0 Nonrheumatic mitral (valve) insufficiency; I50.22 Chronic systolic (congestive) heart failure | CPT/HCPCS: 99215; 99245 ==

== ENCOUNTER 2019-08-01 13:13 | Outpatient (REF) | payer MEDICARE, MEDICAID, SELFPAY ==
[2019-08-01 20:41] LABS: Abs Immature Grans 0.01 k/cumm (0.0-0.09); Absolute Basophil Count 0.07 k/cumm (0.0-0.2); Absolute Eosinophil Count 0.58 k/cumm (0.0-0.7); Absolute Lymphocyte Count 2.56 k/cumm (1.2-3.4); Absolute Monocyte Count 0.93 k/cumm (0.11-0.7); Eosinophils % 8.5; HCT 37.6 % (36.0-46.0); HGB 12.5 g/dL (12.0-15.5); Immature Grans % 0.1; Lymphocytes % 37.4; Mean Corp. HGB Concentration 33.2 g/dL (32.0-36.0); Mean Corpuscular Hemoglobin 28.8 pg (27.0-33.0); Mean Corpuscular Volume 86.6 fL (80-95); Mean Platelet Volume 13.2 fL (8.0-11.0); Monocytes % 13.6; Neutrophils % 39.4; Platelet Count 250 x1000/uL (130-400); RBC 4.34 m/cumm (4.00-5.20); RBC Distribution Width 16.3 % (11.7-14.6); White Blood Cell Count 6.85 k/cumm (4.4-10.8)
[2019-08-01 20:52] LABS: ALT 15 U/L (14-59); AST 17 U/L (15-37); Albumin 3.5 g/dL (3.4-5.0); Alkaline Phosphatase 159 U/L (46-116); Anion Gap 8.3 mmol/L (3-11); BUN 30 mg/dL (7-18); Bilirubin, Total 0.2 mg/dL (0.2-1.0); CO2 26.7 mmol/L (21.0-32.0); CREATININE 1.45 mg/dL (0.55-1.02); Calcium 9.6 mg/dL (8.5-10.1); Chloride 99 mmol/L (98-107); Glucose 80 mg/dL (70-100); Magnesium 1.7 mg/dL (1.8-2.4); Potassium 4.8 mmol/L (3.5-5.1); Sodium 134 mmol/L (136-145); Total Protein 7.6 g/dL (6.4-8.2)
== END 2019-08-01 13:33 ==
LOC: NCHCN 13:13
PROVIDERS: PCP Physician Assistant Medical; Visit Provider Physician Assistant Medical
DX: E83.42 Hypomagnesemia (principal); E87.1 Hypo-osmolality and hyponatremia; D64.9 Anemia, unspecified
CPT/HCPCS: 80053; 83735; 85025

== ENCOUNTER 2019-08-12 09:56 | Outpatient (CLI) | payer MEDICARE, MEDICAID, SELFPAY ==
--- NOTE | 2019-08-12 09:47 | DI.RAD_ITS ---
EXAM: XR HIP LT COMPLETE AP PELVIS INDICATION: L hip fx. COMPARISON: No exams were available for comparison TECHNIQUE: 2D digital imaging was performed. FINDINGS: There has been no change in the alignment of the hardware or intertrochanteric fracture. There is ev idence of continued fracture healing. No new abnormalities are seen.
== END 2019-08-12 10:16 ==
PROVIDERS: PCP Physician Assistant Medical; Referring Provider Physician Assistant Medical; Visit Provider Orthopaedic Surgery
DX: S72.142D Displaced intertrochanteric fracture of left femur, subsequent encounter for closed fracture with routine healing (principal); X58.XXXD Exposure to other specified factors, subsequent encounter
CPT/HCPCS: 73502

== ENCOUNTER 2019-08-29 19:32 | Outpatient (REF) | payer MEDICARE, MEDICAID, SELFPAY ==
[2019-08-29 18:43] LABS: Anion Gap 5.4 mmol/L (3-11); BUN 27 mg/dL (7-18); CO2 27.6 mmol/L (21.0-32.0); CREATININE 1.78 mg/dL (0.55-1.02); Calcium 9.3 mg/dL (8.5-10.1); Chloride 95 mmol/L (98-107); Estimated GFR 28.26 (mL/min/1.73m2); Glucose 84 mg/dL (74-106); Potassium 4.9 mmol/L (3.5-5.1); Sodium 128 mmol/L (136-145)
== END 2019-08-29 19:52 ==
LOC: NCHCN 19:32
PROVIDERS: PCP Physician Assistant Medical; Visit Provider Physician Assistant Medical
DX: E83.42 Hypomagnesemia (principal)
CPT/HCPCS: 80048

== ENCOUNTER 2019-09-26 10:21 | Outpatient (CLI) | payer MEDICARE, MEDICAID, SELFPAY ==
[2019-09-26 12:37] LABS: Anion Gap 12.2 mmol/L (3-11); BUN 30 mg/dL (7-18); CO2 28.8 mmol/L (21.0-32.0); CREATININE 1.19 mg/dL (0.55-1.02); Calcium 9.3 mg/dL (8.5-10.1); Chloride 95 mmol/L (98-107); Estimated GFR 44.84 (mL/min/1.73m2); Glucose 69 mg/dL (74-106); Magnesium 1.8 mg/dL (1.8-2.4); Potassium 4.5 mmol/L (3.5-5.1); Sodium 136 mmol/L (136-145)
== END 2019-09-26 10:41 ==
PROVIDERS: PCP Physician Assistant Medical; Visit Provider Physician Assistant Medical
DX: I42.9 Cardiomyopathy, unspecified (principal)
CPT/HCPCS: 36415; 80048; 83735

== ENCOUNTER → 2019-10-22 11:32 | Outpatient (BNVA) | payer MEDICARE, MEDICAID, SELFPAY | PROVIDERS: PCP Physician Assistant Medical; Referring Provider Physician Assistant Medical; Visit Provider Internal Medicine Cardiovascular Disease | DX: Z45.02 Encounter for adjustment and management of automatic implantable cardiac defibrillator (principal); I42.8 Other cardiomyopathies | CPT/HCPCS: 93282; 99213 ==

== ENCOUNTER 2020-02-16 14:33 | Outpatient (REF) | payer MEDICARE, MEDICAID, SELFPAY ==
[2020-02-16 18:50] LABS: Abs Immature Grans 0.01 k/cumm (0.0-0.09); Absolute Basophil Count 0.03 k/cumm (0.0-0.2); Absolute Eosinophil Count 0.34 k/cumm (0.0-0.7); Absolute Monocyte Count 0.65 k/cumm (0.11-0.7); Absolute Neutrophil Count 3.31 k/cumm (1.2-6.7); Basophils % 0.5; Eosinophils % 5.4; HCT 36.7 % (36.0-46.0); HGB 12.9 g/dL (12.0-15.5); Immature Grans % 0.2 %; Lymphocytes % 31.5; Mean Corp. HGB Concentration 35.1 g/dL (32.0-36.0); Mean Corpuscular Hemoglobin 29.6 pg (27.0-33.0); Mean Corpuscular Volume 84.2 fL (80-95); Mean Platelet Volume 13.3 fL (8.0-11.0); Monocytes % 10.3; Neutrophils % 52.1; Platelet Count 234 x1000/uL (130-400); RBC 4.36 m/cumm (4.00-5.20); RBC Distribution Width 14.8 % (11.7-14.6); White Blood Cell Count 6.34 k/cumm (4.4-10.8)
[2020-02-16 19:20] LABS: ALT 17 U/L (14-59); AST 18 U/L (15-37); Albumin 3.4 g/dL (3.4-5.0); Alkaline Phosphatase 198 U/L (46-116); BUN 23 mg/dL (7-18); Bilirubin, Total 0.4 mg/dL (0.2-1.0); CREATININE 1.54 mg/dL (0.55-1.02); Calcium 9.2 mg/dL (8.5-10.1); Calculated LDL 144 mg/dL (<100); Chloride 95 mmol/L (98-107); Cholesterol 224 mg/dL (<200); Glucose 89 mg/dL (74-106); HDL Cholesterol 69 mg/dL (40-60); Magnesium 1.8 mg/dL (1.8-2.4); Sodium 131 mmol/L (136-145); Total Protein 7.6 g/dL (6.4-8.2); Triglyceride 57 mg/dL (<150)
== END 2020-02-16 14:53 ==
LOC: NCHCN 14:33
PROVIDERS: PCP Physician Assistant Medical; Visit Provider Physician Assistant Medical
DX: I42.9 Cardiomyopathy, unspecified (principal); E78.89 Other lipoprotein metabolism disorders; E83.42 Hypomagnesemia
CPT/HCPCS: 80053; 80061; 83735; 85025

== ENCOUNTER → 2020-02-18 12:48 | Outpatient (BNVA) | payer MEDICARE, MEDICAID, SELFPAY | PROVIDERS: PCP Physician Assistant Medical; Referring Provider Physician Assistant Medical; Visit Provider Internal Medicine Cardiovascular Disease | DX: I42.8 Other cardiomyopathies (principal); Z45.02 Encounter for adjustment and management of automatic implantable cardiac defibrillator | CPT/HCPCS: 93282; 99212; 93005; 93010 ==

== ENCOUNTER 2020-02-19 23:37 | Emergency (ER) | payer MEDICARE, MEDICAID, SELFPAY ==
[2020-02-19 23:37] VITALS: BP 121/97; PULSE 101; RESP 23; TEMP 36.4; O2SAT 100
--- NOTE | 2020-02-19 23:59 | W.ED.GENAD ---
Discharge Plan Disposition Patient Disposition: HOME Condition: Good Discharge Details Chief Complaint: DrugWithdr Clinical Impression: Opiate withdrawal Primary Care Provider: Paula Vazquez ED Provider: Moshe Ravi [place] Meds and New Rx's Prescriptions: Continued aspirin 81 mg tablet,chewable 81 mg PO DAILY RF: 0 carvedilol 6.25 mg tablet 3.125 mg PO BID RF: 0 magnesium oxide 400 MG tablet 400 mg PO DAILY Qty: 180 RF: 3 furosemide 20 MG tablet 20 mg PO DAILY RF: 0 duloxetine [Cymbalta] 30 MG capsule,delayed release(DR/EC) 30 mg PO DAILY RF: 0 docusate sodium [Colace] 100 MG capsule 100 mg PO BID PRN PRNRF: 0 cholecalciferol (vitamin D3) 1,000 UNITS tablet 1,000 units PO DAILY RF: 0 potassium chloride 10 MEQ tablet extended release 10 meq PO DAILY RF: 0 lisinopril 5 MG tablet 5 mg PO DAILY Qty: 0 RF: 0 esomeprazole magnesium 40 mg Capsule,Delayed Release(Dr/Ec) 40 mg PO DAILY RF: 0 fentanyl [Duragesic] 50 mcg/hr Patch 72 Hour 50 mcg transdermal Q72H Qty: 10 RF: 0 fentanyl 12 mcg/hr Patch 72 Hour 12 mcg transdermal Q72H Qty: 10 RF: 0 calcium carbonate [Oyster Shell Calcium 500] 500 mg calcium (1,250 mg) Tablet 1.25 g PO BID Qty: 0 RF: 0 Discharge Instructions Additional Instructions: Be sure to [facility] your prescriptions tomorrow so that you have them for the weekend. Follow-up with primary care as needed. Return to ED for fever, chest pain, shortness of breath, mental status changes. Referrals: Paula Vazquez PA [Primary Care Provider] - Medical Decision Making Patient has been on transdermal fentanyl for years. Currently 62 mcg total which he changes every 3 days. Was due to be changed Sunday. It is now Sunday morning. She has restless, anxious, tremulous with some increased pain. No specific new pain just her general chronic pain. Suspect she is having opiate withdrawal. Will place new fentanyl patches tonight. However will take some time for that to be absorbed. Will give 1 dose of oxycodone immediate release 5 mg along with Zofran as she reports nausea and vomiting with oxycodone. Will reevaluate to see if symptoms improving. 01:00 - Patient much better now. Restlessness, anxiety and tremor resolved. Requesting discharge home. Knows that patches on currently good for three days. Reports having prescription at pharmacy to [facility]. Will discharge home, follow up with PCP. Medical Records Medical records reviewed: Yes I reviewed the patient's medical records. HPI General Mode of arrival: EMS. Date/Time Provider Initiated Documentation: 02/19/20 23:42. Limitations to Documentation: no limitations. Information obtained by: patient, EMS, RN notes reviewed and old records reviewed. HPI Narrative: Patient presents to ED by ambulance with complaints of twitching, anxiety, restlessness. Patient reports history of restless leg. Initially thought she was just having worsening restless leg symptoms. However over the course of the last couple of hours she is developed twitching and restlessness in her upper body as well as generalized anxiety. She has chronic pain for which she is on transdermal fentanyl at 62 mics q. 3 days. She last took these on Sunday. They were due to be changed Sunday. However, prescription is somehow not refilled at this point. She therefore has the old patches on. She is not reporting any new pain. She has some worsening of her chronic pain. She denies having chest pain, shortness of breath, vomiting, diarrhea. She denies fever or cough. Related Data Home Medications Medication Instructions Recorded Confirmed duloxetine [Cymbalta] 30 mg PO DAILY 01/01/15 02/19/20 docusate sodium [Colace] 100 mg PO BID PRN PRN 03/31/16 02/18/20 cholecalciferol (vitamin D3) 1,000 units PO DAILY 11/03/16 02/18/20 magnesium oxide 400 mg PO DAILY #180 tab-cap 11/04/16 02/19/20 potassium chloride 10 meq PO DAILY 11/11/16 02/19/20 lisinopril 5 mg PO DAILY #0 11/15/16 02/19/20 furosemide 20 mg PO DAILY tab-cap 03/27/18 02/19/20 esomeprazole magnesium 40 mg PO DAILY 04/29/19 02/19/20 calcium carbonate [Oyster Shell 1.25 g PO BID #0 tab 05/05/19 02/18/20 Calcium 500] fentanyl 12 mcg TRANSDERMAL Q72H #10 each 05/05/19 02/19/20 fentanyl [Duragesic] 50 mcg TRANSDERMAL Q72H #10 each 05/05/19 02/19/20 aspirin 81 mg chewable tablet 81 mg PO DAILY tab 07/07/19 02/18/20 carvedilol 6.25 mg tablet 3.125 mg PO BID tab 07/07/19 02/18/20 Previous Rx's Medication Instructions Recorded lisinopril 5 mg PO DAILY #0 11/15/16 calcium carbonate [Oyster Shell 1.25 g PO BID #0 tab 05/05/19 Calcium 500] fentanyl 12 mcg TRANSDERMAL Q72H #10 each 05/05/19 fentanyl [Duragesic] 50 mcg TRANSDERMAL Q72H #10 each 05/05/19 Allergies Allergy/AdvReac Type Severity Reaction Status Date / Time oxycodone Allergy Mild Verified 02/19/20 23:53 aripiprazole [From Abilify] Allergy Verified 02/19/20 23:53 codeine AdvReac Mild vomiting Verified 02/19/20 23:53 acetaminophen [From Tylenol] AdvReac Verified 02/19/20 23:53 General Stated Complaint: DrugWithdr SHY: 3 Review of Systems Narrative: As documented in HPI otherwise negative as below. Const: no fever, chills, weakness Resp: no cough, SOB, pleuritic pain CV: no CP, diaphoresis, edema, syncope GI: no abdominal pain, nausea, vomiting, diarrhea Neuro: no headache, numbness, focal weakness, confusion PFSH Medical History Cardiomyopathy, nonischemic (Acute) Chronic kidney disease, stage 3 (Acute) Chronic systolic CHF (congestive heart failure) (Chronic) EF 35% Compression fracture of lumbar vertebra (Acute) Dilated cardiomyopathy (Chronic) Mitral regurgitation (Chronic) Osteoporosis (Chronic) Surgical History History of mitral valve repair (Chronic) ICD (implantable cardioverter-defibrillator) in place (Chronic) Status post-operative repair of closed fracture of left hip (Acute) Social History Smoking/Tobacco Use Status: Former Tobacco Use Pack-years: 4 Tobacco: How many years used: 7 Alcohol Intake: former Drug use: Never Do you feel safe at home: Yes Do you feel safe in your relationship?: Yes Exam Narrative Exam Narrative: Vitals: Afebrile. Mild tachycardia as well as elevated diastolic. Normal O2 saturations on room air. Const: Elderly female in NAD but very restless. HEENT: NC/AT. Normal facial exam. Eyes: Normal conjunctiva and sclera. Neck: Supple. Trachea midline. Lungs: Normal respiratory effort. Cor: Good radial pulses. GI: Soft. NT/ND. No guarding or rebound. Neuro: A+O x 3. Normal speech, mentation. Cranial nerves II - XII grossly intact. No gross motor or sensory deficit. Ext: No C/C/E. Skin: Warm and dry without rash. Course Vital Signs Vital signs: Vital Signs Temperature 97.5 F L 02/19/20 23:37 Pulse 101 H 02/19/20 23:37 Respiratory Rate 23 02/19/20 23:37 Blood Pressure 121/97 H 02/19/20 23:37 Pulse Oximetry 100 02/19/20 23:37 Temperature 97.5 F L 02/19/20 23:37 Temperature Source Skin 02/19/20 23:37 Pulse 101 H 02/19/20 23:37 Respiratory Rate 23 02/19/20 23:37 Blood Pressure 121/97 H 02/19/20 23:37 Pulse Oximetry 100 02/19/20 23:37 Oxygen Delivery Method Room Air 02/19/20 23:37 Oxygen Flow Rate 0 02/19/20 23:37
[2020-02-20] MEDS: Ondansetron O.D.T. 4 MG TABEF PO (00:04)
[2020-02-20] MEDS: fentaNYL 12 MCG PATCH TD (00:16)
[2020-02-20] MEDS: fentaNYL 50 MCG PATCH TD (00:16)
[2020-02-20] MEDS: oxyCODONE 5 MG TAB PO (00:19)
[2020-02-20 01:00] VITALS: BP 105/76; PULSE 88; O2SAT 97
--- NOTE | 2020-02-20 01:35 | NUR.NOTE ---
Nursing Note: pt ready for discharge but unable to get transportation at this time. POC: pt to [facility] at 0500.
[2020-02-20 02:00] VITALS: BP 123/82; PULSE 78; RESP 18; O2SAT 97
[2020-02-20 03:02] VITALS: BP 110/79; PULSE 81; RESP 19; O2SAT 96
[2020-02-20 04:00] VITALS: BP 118/78; PULSE 79; RESP 16; O2SAT 98
[2020-02-20 04:43] VITALS: BP 97/58; PULSE 77; RESP 15; TEMP 36.7; O2SAT 97
== END 2020-02-20 04:44 | disposition home or self-care (01) ==
LOC: ER 02-20 01:10
PROVIDERS: Emergency Provider Emergency Medicine; PCP Physician Assistant Medical
DX: F11.23 Opioid dependence with withdrawal (principal); G89.29 Other chronic pain; N18.3 Chronic kidney disease, stage 3 (moderate)
CPT/HCPCS: 99283

== ENCOUNTER 2020-02-24 01:32 | Outpatient (CLI) | payer MEDICARE, MEDICAID, SELFPAY ==
--- NOTE | 2020-02-24 11:17 | DI.MAMMO_ITS ---
EXAM: MG MAMMO SCREENING CLINICAL HISTORY: SCREENING, Z12.31, [facility], Z00.00 TECHNIQUE: Bilateral full field digital CC and MLO mammographic images were obtained with 3D tomosyn thesis and utilizing computer aided detection (CAD). COMPARISON: Available for comparison. FINDINGS: Masses/Architectural Distortion: None seen. Microcalcifications: No suspicious pleomorphic-type are seen. Skin Thickening/Nipple Retraction: None. IMPRESSION: 1. No significant interval change with no specific features of malignancy noted. 2. Unless there is more urgent need, screening mammography is recommended, as per [employer] guidelines. BI-RADS Category 1 - Negative Breast Density - Category B - Scattered areas of fibroglandular density A negative radiographic report should not delay biopsy if a dominant or clinically suspicious mass is present. Up to ten percent of cancers are not identified on mammography. A negative report may reinforce clinical impression. Adenosis and dense breasts may obscure an underlying neoplasm. False positive reports average 6 to 10%. Patient will receive a letter notifying them of these results.
== END 2020-02-24 01:52 ==
PROVIDERS: PCP Physician Assistant Medical; Visit Provider Physician Assistant Medical
DX: Z12.31 Encounter for screening mammogram for malignant neoplasm of breast (principal)
CPT/HCPCS: 77063; 77067

== ENCOUNTER → 2020-03-01 13:25 | Outpatient (BNVA) | payer MEDICARE, MEDICAID, SELFPAY | PROVIDERS: PCP Physician Assistant Medical; Referring Provider Physician Assistant Medical; Visit Provider Internal Medicine Cardiovascular Disease | DX: I50.22 Chronic systolic (congestive) heart failure (principal); Z95.810 Presence of automatic (implantable) cardiac defibrillator; I34.0 Nonrheumatic mitral (valve) insufficiency; I42.8 Other cardiomyopathies | CPT/HCPCS: 99214 ==

== ENCOUNTER 2020-07-09 13:25 | Outpatient (REF) | payer MEDICARE, MEDICAID, SELFPAY ==
[2020-07-09 19:31] LABS: ALT 12 U/L (14-59); AST 17 U/L (15-37); Albumin 3.4 g/dL (3.4-5.0); Alkaline Phosphatase 271 U/L (46-116); Anion Gap 7.4 mmol/L (3-11); BUN 25 mg/dL (7-18); Bilirubin, Total 0.4 mg/dL (0.2-1.0); CO2 27.6 mmol/L (21.0-32.0); CREATININE 1.48 mg/dL (0.55-1.02); Calcium 8.9 mg/dL (8.5-10.1); Chloride 97 mmol/L (98-107); Estimated GFR 34.87 (mL/min/1.73m2); Glucose 77 mg/dL (74-106); Potassium 4.5 mmol/L (3.5-5.1); Sodium 132 mmol/L (136-145); Total Protein 7.6 g/dL (6.4-8.2)
== END 2020-07-09 13:45 ==
LOC: NCHCN 13:25
PROVIDERS: PCP Physician Assistant Medical; Visit Provider Physician Assistant Medical
DX: I12.9 Hypertensive chronic kidney disease with stage 1 through stage 4 chronic kidney disease, or unspecified chronic kidney disease (principal); N18.30 Chronic kidney disease, stage 3 unspecified
CPT/HCPCS: 80053; 83735

== ENCOUNTER 2020-07-12 09:44 | Outpatient (CLI) | payer MEDICARE, MEDICAID, SELFPAY ==
--- NOTE | 2020-07-12 | DI.RAD_ITS ---
EXAM: XR THORACIC SPINE COMPLETE CLINICAL HISTORY: THORACOLUMBAR VERTEBRAL COMPRESSION FRACTURES T14.8 TECHNIQUE: COMPARISON: CR XR thoracic spine complete from 11/29/2018 FINDINGS: Three views were obtained. There are multiple vertebral compression fractures and there are vertebro plasties at T7 and T5. No gross interval change in appearance of the multiple thoracic vertebral com pression fractures in comparison with prior examination November 2018. Transvenous cardiac pacemaker noted in position. IMPRESSION: Multiple vertebral compression fractures, no new fracture seen. RADIATION DOSE DELIVERED: Total DLP
== END 2020-07-12 10:04 ==
PROVIDERS: PCP Physician Assistant Medical; Visit Provider Physician Assistant Medical
DX: M48.55XA Collapsed vertebra, not elsewhere classified, thoracolumbar region, initial encounter for fracture (principal)
CPT/HCPCS: 72072

== ENCOUNTER → 2020-08-18 13:48 | Outpatient (BNVA) | payer MEDICARE, MEDICAID, SELFPAY | PROVIDERS: PCP Physician Assistant Medical; Referring Provider Physician Assistant Medical; Visit Provider Internal Medicine Cardiovascular Disease | DX: R00.0 Tachycardia, unspecified; Z45.02 Encounter for adjustment and management of automatic implantable cardiac defibrillator | CPT/HCPCS: 93282; 99214 ==

== ENCOUNTER 2020-10-11 16:03 | Outpatient (REF) | payer MEDICARE, MEDICAID, SELFPAY ==
[2020-10-11 19:36] LABS: Absolute Basophil Count 0.05 10^3/uL (0.0-0.2); Absolute Eosinophil Count 0.25 10^3/uL (0.0-0.7); Absolute Lymphocyte Count 1.97 10^3/uL (1.2-3.4); Absolute Monocyte Count 0.64 10^3/uL (0.1-0.8); Absolute Neutrophil Count 2.88 10^3/uL (1.2-6.7); Basophils % 0.9; Eosinophils % 4.3; HCT 38.2 % (36.0-46.0); HGB 12.9 g/dL (11.2-15.7); MCH 28.5 pg (27.0-33.0); MCHC 33.8 % (32.0-36.0); MCV 84.3 fL (80-95); MPV 13.5 fL (8.0-11.0); Monocytes % 11.1; Neutrophils % 49.7; Nucleated RBC 0 %; Platelet Count 239 10^3/uL (130-400); RBC 4.53 10^6/uL (3.93-5.22); RDW 14.4 % (11.7-14.6); RDW-SD 44.1 fL; WBC 5.79 10^3/uL (4.4-10.8)
[2020-10-11 19:38] LABS: ALT 14 U/L (14-59); AST 16 U/L (15-37); Albumin 3.6 g/dL (3.4-5.0); Alkaline Phosphatase 236 U/L (46-116); Anion Gap 7.1 mmol/L (3-11); BUN 24 mg/dL (7-18); Bilirubin, Total 0.4 mg/dL (0.2-1.0); CO2 25.9 mmol/L (21.0-32.0); CREATININE 1.49 mg/dL (0.55-1.02); Calcium 9.3 mg/dL (8.5-10.1); Chloride 97 mmol/L (98-107); Glucose 90 mg/dL (74-106); Potassium 5.4 mmol/L (3.5-5.1); Sodium 130 mmol/L (136-145); TSH (W/Ref FT4) 2.67 uIU/mL (0.36-3.74); Total Protein 7.9 g/dL (6.4-8.2)
[2020-10-12 09:50] LABS: Magnesium 2.3 mg/dL (1.8-2.4); NT-proBNP 14241 pg/mL (<300)
== END 2020-10-11 16:23 ==
LOC: NCHCN 16:03
PROVIDERS: PCP Physician Assistant Medical; Visit Provider Physician Assistant Medical
DX: D64.9 Anemia, unspecified (principal); R06.02 Shortness of breath; E83.42 Hypomagnesemia; E87.1 Hypo-osmolality and hyponatremia
CPT/HCPCS: 80053; 83735; 83880; 84443; 85025

== ENCOUNTER → 2020-10-14 12:48 | Outpatient (BNVA) | payer MEDICARE, MEDICAID, SELFPAY | PROVIDERS: PCP Physician Assistant Medical; Referring Provider Physician Assistant Medical; Visit Provider Internal Medicine Cardiovascular Disease | DX: I42.8 Other cardiomyopathies (principal); I50.22 Chronic systolic (congestive) heart failure; R00.0 Tachycardia, unspecified; N18.3 Chronic kidney disease, stage 3 (moderate); Z95.810 Presence of automatic (implantable) cardiac defibrillator; Z98.890 Other specified postprocedural states; N18.30 Chronic kidney disease, stage 3 unspecified | CPT/HCPCS: 99214; 99443 ==

== ENCOUNTER 2020-10-28 02:51 | Outpatient (CLI) | payer MEDICARE, MEDICAID, SELFPAY ==
[2020-10-28 10:26] LABS: Anion Gap 7.6 mmol/L (3-11); BUN 22 mg/dL (7-18); CO2 30.4 mmol/L (21.0-32.0); CREATININE 1.5 mg/dL (0.55-1.02); Chloride 96 mmol/L (98-107); Estimated GFR 34.23 (mL/min/1.73m2); Glucose 94 mg/dL (74-106); Potassium 3.8 mmol/L (3.5-5.1); Sodium 134 mmol/L (136-145)
== END 2020-10-28 02:52 | disposition home or self-care (01) ==
LOC: LBO 02:51
PROVIDERS: PCP Physician Assistant Medical; Visit Provider Internal Medicine Cardiovascular Disease
DX: I50.22 Chronic systolic (congestive) heart failure (principal)
CPT/HCPCS: 36415; 80048

== ENCOUNTER → 2020-10-29 13:31 | Outpatient (BNVA) | payer MEDICARE, MEDICAID, SELFPAY | PROVIDERS: PCP Physician Assistant Medical; Referring Provider Physician Assistant Medical; Visit Provider Internal Medicine Cardiovascular Disease | DX: R00.0 Tachycardia, unspecified (principal); Z95.810 Presence of automatic (implantable) cardiac defibrillator; I42.8 Other cardiomyopathies; I50.22 Chronic systolic (congestive) heart failure; I34.0 Nonrheumatic mitral (valve) insufficiency | CPT/HCPCS: 99214 ==

== ENCOUNTER 2020-11-11 01:32 | Outpatient (CLI) | payer MEDICARE, MEDICAID, SELFPAY ==
--- NOTE | 2020-11-11 12:30 | DI.US_ITS ---
APPROVED REPORT EXAM: Comprehensive 2D, Doppler, and color-flow Echocardiogram Patient Location: Out-Patient Process Chemist: Beba Cortez RDCS (AE) Indications: Shortness of breath, H/O Mitral Valve repair, Pacemaker Other Information Study Quality: Adequate Conclusion Normal left ventricular wall thickness and chamber size. Estimated ejection fraction is 25 to 30% wi th global hypokinesis The right ventricle has grossly normal size and systolic function The left atrium is severely dilated. The right atrium is moderately dilated Mitral annuloplasty ring noted. There is moderate mitral regurgitation Moderate tricuspid regurgitation. Estimated right ventricular systolic pressure is 33 mmHg Trileaflet aortic valve without stenosis or regurgitation Structurally normal pulmonic valve with trace regurgitation Wall motion Left Ventricle The left ventricle is normal size. Left ventricular systolic function is severely decreased. There is normal left ventricular wall thickness. There is global hypokinesis of the left ventricle. There is no ventricular septal defect visualized. LVEF is 25-30%. Right Ventricle Right ventricle is grossly normal in size. Right ventricular systolic function is grossly normal. The RVSP is 33.5mmHg. Pacemaker lead is present in the right ventricle. Atria Left atrium is severely dilated. Right atrium is moderately dilated. The interatrial septum is intact with no evidence for an atrial septal defect. Aortic Valve The aortic valve is normal in structure. Aortic valve is trileaflet. There is no aortic valvular sten osis. No aortic regurgitation is present. Mitral Valve No evidence of mitral valve stenosis. moderate mitral regurgitation. Annuloplasty ring is noted in th e mitral position. Tricuspid Valve The tricuspid valve is normal in structure. There is no tricuspid valve stenosis. moderate tricuspid regurgitation. Pulmonic Valve The pulmonary valve is normal in structure. There is no pulmonic valvular stenosis. Trace pulmonic re gurgitation. Great Vessels The aortic root is normal in size. The ascending aorta is normal in size. IVC is normal in size and c ollapses >50% with inspiration. Pericardium There is no pericardial effusion. 2D Dimensions IVSD d PLAX 0.94 cm F: 0.6-1.0 LV Vol A2C d MOD 117.2 mL LVPW d PLAX 0.99 cm F: 0.6 - 1.0 LV Vol A4C d MOD 96.7 mL LVID d PLAX 5.08 cm F: 3.8 - 5.2 LA vol/ BSA A2C s A-L 47.3 mL/m2 LVDs 4.55 cm F: 2.2 - 3.5 LA vol/ BSA A4C s A-L 44.7 mL/m2 Ao Root d 3.02 cm F: 2.7 - 3.3 LA Vol/ BSA Biplane s A-L 46.2 mL/m2 RA Area A4C 14.67 cm2 LA Area A4C s MOD 19.49 cm2 RA Vol/ BSA A4C s A-L 27.7 mL/m2 LA Area A2C s MOD 20.15 cm2 Ao Asc Diam d 3.16 cm F: 2.3 - 3.1 LV EF A4C MOD 25.1 % LV EF Teichholz 22.0 % LV EF A2C MOD 25.8 % LVEF (Gary's) 24.50 % F: 54 - 74 LV EF Biplane MOD 24.5 % LV Volume 99.03 mL F: 46 - 106 SV 27.78 mL LV Volume Index 73.90 mL/m2 F: 29 - 61 SV Index 20.75 mL/m2 LV Vol Biplane MOD 113.4 mL FS 10.10 % LV Diastology E/A Ratio 1.7 MV E Vmax 1.35 (0.4-1.3 m/s) MV A Vmax 0.80 (0.4-1.3 m/s) MV E/A Ratio 1.60 Aortic Valve LVOT Area 2.53 cm2 AoV Area Vmax 1.77 cm2 LVOT Vmax 0.62 m/s AoV Area/ BSA (Vmax) 1.32 cm2/m2 LVOT Mean Ketan. 0.39 m/s ANAHI Mean Ketan. 1.57 cm2 LVOT Peak Grad 1.6 mmHg ANAHI Mean Ketan. Index 1.18 cm2/m2 LVOT Mean Grad 0.7 mmHg LVOT VTI 0.099 m LVOT Diam s 1.75 cm AoV Vmax 0.89 m/s Velocity Ratio 0.69 AoV Mean Ketan. 0.63 m/s AoV Peak Grad 3.2 mmHg LVOT SV 25.01 mL AoV Mean Grad 1.7 mmHg AoV VTI 0.142 m AoV Area VTI 1.76 cm2 AoV Area/ BSA (VTI) 1.31 cm/m2 Mitral Valve MV DT 144 (160-240 msec) MR Vmax 4.94 m/s MV PHT 42 msec MR VTI 1.494 m MV Area PHT 5.26 cm2 MR Peak Grad 97.5 mmHg MV VTI 0.401 m MR Mean Grad 62.6 mmHg MV VTI Annulus 0.414 m MR PISA Radius 0.57 cm MV Area VTI 0.64 (4.0-6.0 cm2) MR EROA 0.15 cm2 MR Aliasing Velocity 0.35 m/s MR PISA 2.05 cm2 Pulmonary Valve PV Vmax 0.64 (0.5-1.5 m/s) RVOT Peak Gr. 0.93 mmHg PV Peak Grad 1.6 mmHg RVOT Mean Gr. 0.45 mmHg PV Mean Grad 0.8 mmHg RVOT VTI 0.061 m PV VTI 0.096 m RVOT Vmax 0.48 m/s Tricuspid Valve TR Peak Grad 30.5 mmHg TR Vmax 2.76 m/s RA Pressure 3.00 mmHg RVSP (TR) 33.5 mmHg
== END 2020-11-11 01:33 ==
LOC: DI 01:32
PROVIDERS: PCP Physician Assistant Medical; Visit Provider Internal Medicine Cardiovascular Disease
DX: I08.1 Rheumatic disorders of both mitral and tricuspid valves (principal); I42.8 Other cardiomyopathies; Z95.0 Presence of cardiac pacemaker
CPT/HCPCS: 36415; 80048; 93306

== ENCOUNTER 2020-11-11 03:30 | Outpatient (CLI) | payer MEDICARE, MEDICAID, SELFPAY ==
[2020-11-11 13:54] LABS: Anion Gap 7.6 mmol/L (3-11); BUN 32 mg/dL (7-18); CO2 27.4 mmol/L (21.0-32.0); CREATININE 1.8 mg/dL (0.55-1.02); Calcium 9.3 mg/dL (8.5-10.1); Chloride 97 mmol/L (98-107); Estimated GFR 27.74 (mL/min/1.73m2); Glucose 88 mg/dL (74-106); Potassium 5.1 mmol/L (3.5-5.1); Sodium 132 mmol/L (136-145)
== END 2020-11-11 03:31 | disposition home or self-care (01) ==
LOC: LBO 03:30
PROVIDERS: PCP Physician Assistant Medical; Visit Provider Physician Assistant Medical
DX: I10 Essential (primary) hypertension (principal)
CPT/HCPCS: 36415; 80048

== ENCOUNTER 2021-01-14 03:58 | Outpatient (CLI) | payer MEDICARE, MEDICAID, SELFPAY ==
--- NOTE | 2021-01-14 | DI.RAD_ITS ---
Exam(s) XR KNEE RT 3V AP,LAT,CORNELIO EXAM: XR KNEE RT 3V AP,LAT,CORNELIO CLINICAL HISTORY: BILAT KNEE PAIN, M25.569. TECHNIQUE: 2D digital imaging was performed. COMPARISON: No previous for comparison. FINDINGS: BONES: No acute fracture is present. No bony destructive lesion is seen. The bones appear osteopenic. JOINTS: The knee is normally aligned. No joint effusion is seen. The articular surfaces are well main tained. SOFT TISSUE: Normal. IMPRESSION: Unremarkable radiographs of the right knee. DATA REPOSITORY: RADIATION DOSE DELIVERED:
--- NOTE | 2021-01-14 11:40 | DI.RAD_ITS ---
Exam(s) XR KNEE LT 3V AP,LAT,CORNELIO EXAM: XR KNEE LT 3V AP,LAT,CORNELIO CLINICAL HISTORY: BILAT KNEE PAIN, M25.569. TECHNIQUE: 2D digital imaging was performed. COMPARISON: No previous for comparison. FINDINGS: BONES: No acute fracture is present. No bony destructive lesion is seen. The distal aspect of an int ramedullary sandra is seen in the left femur. JOINTS: The knee is normally aligned. No joint effusion is seen. Articular surfaces are well maintain ed. SOFT TISSUE: Normal. IMPRESSION: Unremarkable x-ray of the left knee. DATA REPOSITORY: RADIATION DOSE DELIVERED:
== END 2021-01-14 04:18 ==
PROVIDERS: PCP Physician Assistant Medical; Visit Provider Physician Assistant Medical
DX: M25.561 Pain in right knee (principal); M25.562 Pain in left knee; M85.88 Other specified disorders of bone density and structure, other site
CPT/HCPCS: 73562

== ENCOUNTER 2021-01-31 11:08 | Outpatient (REF) | payer MEDICARE, MEDICAID, SELFPAY ==
[2021-01-31 15:54] LABS: Abs Immature Grans 0.01 10^3/uL (0.0-0.06); Absolute Basophil Count 0.08 10^3/uL (0.0-0.2); Absolute Lymphocyte Count 1.58 10^3/uL (1.2-3.4); Absolute Monocyte Count 0.45 10^3/uL (0.1-0.8); Absolute Neutrophil Count 2.14 10^3/uL (1.2-6.7); Basophils % 1.8; Eosinophils % 6.6; HCT 39.3 % (36.0-46.0); HGB 13.1 g/dL (11.2-15.7); Immature Grans % 0.2; Lymphocytes % 34.6; MCH 28.1 pg (27.0-33.0); MCHC 33.3 % (32.0-36.0); MCV 84.3 fL (80-95); MPV 14.4 fL (8.0-11.0); Monocytes % 9.9; Neutrophils % 46.9; Nucleated RBC 0 %; RBC 4.66 10^6/uL (3.93-5.22); RDW-SD 46.3 fL; WBC 4.56 10^3/uL (4.4-10.8)
[2021-01-31 16:02] LABS: Diff Comment PLT Morph Reviewed
[2021-01-31 16:03] LABS: Platelet Count 195 10^3/uL (130-400); RBC Morphology Normal
[2021-01-31 16:07] LABS: Anion Gap 10.1 mmol/L (3-11); BUN 21 mg/dL (7-18); CO2 27.9 mmol/L (21.0-32.0); CREATININE 1.7 mg/dL (0.55-1.02); Calcium 9.3 mg/dL (8.5-10.1); Chloride 96 mmol/L (98-107); Estimated GFR 29.63 (mL/min/1.73m2); Glucose 81 mg/dL (74-106); Magnesium 2.1 mg/dL (1.8-2.4); Sodium 134 mmol/L (136-145)
== END 2021-01-31 11:09 | disposition home or self-care (01) ==
LOC: NCHCN 11:08
PROVIDERS: PCP Physician Assistant Medical; Visit Provider Physician Assistant Medical
DX: E83.42 Hypomagnesemia (principal); N18.30 Chronic kidney disease, stage 3 unspecified
CPT/HCPCS: 80048; 83735; 85025

== ENCOUNTER → 2021-02-04 10:16 | Outpatient (BNVA) | payer MEDICARE, MEDICAID, SELFPAY | PROVIDERS: PCP Physician Assistant Medical; Referring Provider Physician Assistant Medical; Visit Provider Internal Medicine Cardiovascular Disease | DX: R00.0 Tachycardia, unspecified (principal); I42.8 Other cardiomyopathies | CPT/HCPCS: 99214; 99213 ==

== ENCOUNTER 2021-03-30 01:22 | Outpatient (CLI) | payer MEDICARE, MEDICAID, SELFPAY ==
--- NOTE | 2021-03-30 | DI.CT_ITS ---
Exam(s) CT LUMBAR SPINE WO EXAM: CT LUMBAR SPINE WO CLINICAL HISTORY: CHRONIC LOW BACK PAIN, M54.5. TECHNIQUE: Imaging Protocol: Axial computed tomography images with coronal and sagittal reformatted images were created and reviewed COMPARISON: CR XR THORACIC SPINE COMPLETE from 07/12/2020 FINDINGS: The field of view of this study is from of L1 down. T12 not included. Bones: There is osteopenia.. Review of prior thoracic spine plain films reveals by level vertebropl asty cement in mid thoracic vertebral bodies.There are no prior formal lumbar spine imaging studies f or comparison. There is compression fracture of L1 at superior endplate level. This L1 compression fracture was radha dent on plain films of 07/12/2020. There is posterior displacement of the posterior cortex of the up per L1 vertebral body by 7 millimeters and slight flattening of the thecal sac at this level. There is no disc herniation evident at T12-L1 disc space. There also does not appear to be a prominent disc herniation at L1-2 disc space. L2 vertebral body exhibits concave superior endplate compression fracture. This also appears to been evident on prior plain films. There is also approximately 6 millimeters retropulsion of the posteri or cortex at this level with some flattening of the thecal sac also evident at this level. No disc h erniation evident at this level nor at the L2-3 level although there is mild-moderate central canal s tenosis at this level due to short AP dimensions of the pedicles and mild annular bulging. Vacuum ph enomenon is seen within the L2-3 disc space. L3 vertebral body does not exhibit evidence of a compression fracture. No height loss. As described above the L2-3 level does not exhibit a disc herniation but there is mild-moderate centr al canal stenosis. No significant foraminal stenosis. L4 vertebral body exhibits normal height without evidence of a compression fracture although there is mild anterolisthesis of L4 upon L5 noted due to degenerative arthrosis of the facet joints, with aydin roximately 34 millimeters anterolisthesis L4 upon L5. There is severe spinal canal stenosis evident at this level due to the pseudo herniation of the annulus from the slippage, short AP dimensions the pedicles, and degenerative facet joint changes, more prominent on the left than right side. L5 vertebral body exhibits normal height. No compression fracture. No listhesis. There is asymmetr ic disc space narrowing at L5-S1 level which is normal height on the right side and significantly dao rowed on the left side. There is some annular bulging but no prominent disc herniation at this level . However, there is for left-sided foraminal stenosis at this level which is due to the vertical hei ght loss of the disc space. Milder foraminal stenosis noted on the opposite-right side where there i s relatively preserved disc space height. Some degenerative change in the facet joints is noted. Th ere is osteopenia evident in the sacrum but no distinct sacral for lesion or fracture evident. IMPRESSION: 1. Multilevel compression fractures as described above which are probably not new, they appear to bee n present on thoracic spine plain films performed 07/12/2020. There is posterior displacement of the posterior cortices L1 and L2 fracture vertebral bodies with flattening of the thecal sac and mild ce ntral canal stenosis at these levels. 2. Although there are no other compression fractures, there are findings at the other levels as descr ibed above, most prominent being severe spinal canal stenosis at L4-5 level (which is level which exh ibits some degenerative anterolisthesis of L4 upon L5). 3. There is osteopenia but no distinct lytic osseous lesions evident. Also no evidence of paraspinal mass. RADIATION DOSE DELIVERED: 298.26mGy.cm Total DLP DATA REPOSITORY: All CT scans at this facility are submitted to the National Radiology Data Registry (NRDR) Dose Index Registry (DIR) with the [employer] (A[employer]). RADIATION OPTIMIZATION: All CT scans at this facility use at least one of these dose optimization te chniques: automated exposure control; mA and/or kV adjustment per patient size (includes targeted exa ms where dose is matched to clinical indication); or iterative reconstruction.
== END 2021-03-30 01:42 ==
PROVIDERS: PCP Physician Assistant Medical; Visit Provider Physician Assistant Medical
DX: S32.019A Unspecified fracture of first lumbar vertebra, initial encounter for closed fracture (principal); S32.029A Unspecified fracture of second lumbar vertebra, initial encounter for closed fracture; M48.061 Spinal stenosis, lumbar region without neurogenic claudication; M43.16 Spondylolisthesis, lumbar region; M85.88 Other specified disorders of bone density and structure, other site; X58.XXXA Exposure to other specified factors, initial encounter
CPT/HCPCS: 72131

== ENCOUNTER 2021-04-18 15:52 | Outpatient (CLI) | payer MEDICARE, MEDICAID, SELFPAY ==
[2021-04-18 11:14] LABS: Anion Gap 6.4 mmol/L (3-11); BUN 25 mg/dL (7-18); CO2 28.6 mmol/L (21.0-32.0); CREATININE 1.5 mg/dL (0.55-1.02); Calcium 7.9 mg/dL (8.5-10.1); Chloride 98 mmol/L (98-107); Creatine Kinase 31 U/L (26-192); Estimated GFR 34.23 (mL/min/1.73m2); Glucose 87 mg/dL (74-106); Magnesium 2.4 mg/dL (1.8-2.4); Potassium 5.3 mmol/L (3.5-5.1); Sodium 133 mmol/L (136-145)
== END 2021-04-18 15:53 | disposition home or self-care (01) ==
LOC: LBO 15:53
PROVIDERS: PCP Physician Assistant Medical; Visit Provider Physician Assistant Medical
DX: E83.42 Hypomagnesemia (principal); E87.1 Hypo-osmolality and hyponatremia
CPT/HCPCS: 36415; 80048; 82550; 83735

== ENCOUNTER → 2021-05-16 10:48 | Outpatient (BNVA) | payer MEDICARE, MEDICAID, SELFPAY | PROVIDERS: PCP Physician Assistant Medical; Referring Provider Physician Assistant Medical; Visit Provider Internal Medicine Cardiovascular Disease | DX: R69 Illness, unspecified (principal) ==

== ENCOUNTER → 2021-05-18 14:23 | Outpatient (BNVA) | payer MEDICARE, MEDICAID, SELFPAY | PROVIDERS: PCP Physician Assistant Medical; Referring Provider Physician Assistant Medical; Visit Provider Internal Medicine Cardiovascular Disease | DX: I42.8 Other cardiomyopathies (principal); Z45.02 Encounter for adjustment and management of automatic implantable cardiac defibrillator | CPT/HCPCS: 93282 ==

== ENCOUNTER 2021-06-20 03:51 | Outpatient (CLI) | payer MEDICARE, MEDICAID, SELFPAY ==
[2021-06-20 12:33] LABS: Anion Gap 5.6 mmol/L (3-11); BUN 24 mg/dL (7-18); CO2 31.4 mmol/L (21.0-32.0); CREATININE 1.8 mg/dL (0.55-1.02); Calcium 8.9 mg/dL (8.5-10.1); Chloride 101 mmol/L (98-107); Estimated GFR 27.74 (mL/min/1.73m2); Glucose 82 mg/dL (74-106); Potassium 4.8 mmol/L (3.5-5.1); Sodium 138 mmol/L (136-145)
== END 2021-06-20 03:52 | disposition home or self-care (01) ==
PROVIDERS: PCP Physician Assistant Medical; Visit Provider Physician Assistant Medical
DX: E87.5 Hyperkalemia (principal); E83.51 Hypocalcemia
CPT/HCPCS: 36415; 80048

== ENCOUNTER 2021-07-12 10:38 | Outpatient (REF) | payer MEDICARE, MEDICAID, SELFPAY ==
[2021-07-12 14:30] LABS: Anion Gap 8.5 mmol/L (3-11); BUN 31 mg/dL (7-18); CO2 29.5 mmol/L (21.0-32.0); CREATININE 1.7 mg/dL (0.55-1.02); Calcium 8.9 mg/dL (8.5-10.1); Chloride 99 mmol/L (98-107); Estimated GFR 29.63 (mL/min/1.73m2); Glucose 87 mg/dL (74-106); Potassium 4.5 mmol/L (3.5-5.1); Sodium 137 mmol/L (136-145)
== END 2021-07-12 10:39 | disposition home or self-care (01) ==
LOC: NCHCN 10:38
PROVIDERS: PCP Physician Assistant Medical; Visit Provider Physician Assistant Medical
DX: N18.30 Chronic kidney disease, stage 3 unspecified (principal)
CPT/HCPCS: 80048

== ENCOUNTER → 2021-08-16 10:59 | Outpatient (BNVA) | payer MEDICARE, MEDICAID, SELFPAY | PROVIDERS: PCP Physician Assistant Medical; Visit Provider Internal Medicine Cardiovascular Disease | DX: I42.8 Other cardiomyopathies (principal); I50.22 Chronic systolic (congestive) heart failure; Z95.810 Presence of automatic (implantable) cardiac defibrillator; I34.0 Nonrheumatic mitral (valve) insufficiency | CPT/HCPCS: 99214; 99213 ==

== ENCOUNTER 2021-08-24 12:32 | Outpatient (REF) | payer MEDICARE, MEDICAID, SELFPAY ==
[2021-08-24 20:30] LABS: Anion Gap 8.5 mmol/L (3-11); BUN 23 mg/dL (7-18); CO2 26.5 mmol/L (21.0-32.0); CREATININE 1.8 mg/dL (0.55-1.02); Calcium 7.7 mg/dL (8.5-10.1); Chloride 99 mmol/L (98-107); Estimated GFR 27.74 (mL/min/1.73m2); Glucose 86 mg/dL (74-106); Potassium 5.5 mmol/L (3.5-5.1); Sodium 134 mmol/L (136-145)
[2021-08-26 15:41] LABS: Magnesium 2.6 mg/dL (1.8-2.4)
[2021-08-29 05:38] LABS: Vitamin D 25 Total 23.1 ng/mL (30-100)
[2021-08-29 11:36] LABS: Parathyroid Hormone,Intact 1202 pg/mL (19-88)
[2021-09-02 11:29] LABS: Misc Referral (UVM) See Comments
[2021-09-02 11:30] LABS: Misc Referral (UVM) See Comments
== END 2021-08-24 12:33 | disposition home or self-care (01) ==
LOC: NCHCN 12:32
PROVIDERS: PCP Physician Assistant Medical; Visit Provider Physician Assistant Medical
DX: N18.30 Chronic kidney disease, stage 3 unspecified (principal); E83.51 Hypocalcemia
CPT/HCPCS: 80048; 82306; 82040; 83735; 83970; 84100

== ENCOUNTER → 2021-11-16 13:46 | Outpatient (BNVA) | payer MEDICARE, MEDICAID, SELFPAY | PROVIDERS: PCP Physician Assistant Medical; Visit Provider Internal Medicine Cardiovascular Disease | DX: Z95.810 Presence of automatic (implantable) cardiac defibrillator | CPT/HCPCS: 93282 ==

== ENCOUNTER 2022-01-02 14:03 | Outpatient (REF) | payer MEDICARE, MEDICAID, SELFPAY ==
[2022-01-02 14:18] LABS: ALT 12 U/L (14-59); AST 17 U/L (15-37); Albumin 3.2 g/dL (3.4-5.0); Alkaline Phosphatase 115 U/L (46-116); Anion Gap 7.4 mmol/L (3-11); BUN 28 mg/dL (7-18); Bilirubin, Total 0.4 mg/dL (0.2-1.0); CO2 28.6 mmol/L (21.0-32.0); CREATININE 2.1 mg/dL (0.55-1.02); Calcium 8.6 mg/dL (8.5-10.1); Chloride 99 mmol/L (98-107); Estimated GFR 23.15 (mL/min/1.73m2); Ferritin 70 ng/mL (8-252); Glucose 92 mg/dL (74-106); Magnesium 2.1 mg/dL (1.8-2.4); Potassium 4.5 mmol/L (3.5-5.1); Sodium 135 mmol/L (136-145); Total Protein 7.2 g/dL (6.4-8.2)
== END 2022-01-02 14:04 | disposition home or self-care (01) ==
LOC: NCHCN 14:03
PROVIDERS: PCP Physician Assistant Medical; Visit Provider Physician Assistant Medical
DX: I50.9 Heart failure, unspecified (principal); N18.30 Chronic kidney disease, stage 3 unspecified; G25.81 Restless legs syndrome
CPT/HCPCS: 80053; 82728; 83735

== ENCOUNTER → 2022-01-03 10:46 | Outpatient (BNVA) | payer MEDICARE, MEDICAID, SELFPAY | PROVIDERS: PCP Physician Assistant Medical; Visit Provider Internal Medicine Cardiovascular Disease | DX: I42.0 Dilated cardiomyopathy (principal); I50.22 Chronic systolic (congestive) heart failure; R06.02 Shortness of breath; I42.8 Other cardiomyopathies; Z95.810 Presence of automatic (implantable) cardiac defibrillator; I34.0 Nonrheumatic mitral (valve) insufficiency | CPT/HCPCS: 99213 ==

== ENCOUNTER → 2022-02-08 03:28 | Outpatient (CLI) | payer MEDICARE, MEDICAID, SELFPAY ==
--- NOTE | 2022-02-08 10:45 | DI.US_ITS ---
APPROVED REPORT EXAM: Comprehensive 2D, Doppler, and color-flow Echocardiogram Patient Location: Out-Patient Net Web Developer: Beba Cortez RDCS (AE) Indications: Fatigue, SOB, Dilated cardiomyopathy, CHF chronic Other Information Study Quality: Adequate Conclusion Normal left ventricular wall thickness and chamber size. Left ventricular systolic function is reduc ed with an ejection fraction estimated at 30 to 35%. There is global hypokinesis The right ventricle is mildly dilated. Right ventricular systolic function appears normal The left atrium is mildly dilated. The right atrium is normal in size Device lead noted in the right heart Trileaflet aortic valve without stenosis or regurgitation Mitral annuloplasty ring noted. Mild mitral regurgitation Normal tricuspid valve with severe regurgitation. Estimated right ventricular systolic pressure is 3 2 mmHg Wall motion Left Ventricle The left ventricle is normal size. Left ventricular systolic function is moderately decreased. There is normal left ventricular wall thickness. There is global hypokinesis of the left ventricle. There i s no ventricular septal defect visualized. LVEF is 30-35%. Right Ventricle Right ventricle is mildly dilated. Right ventricular systolic function is grossly normal. The RVSP is 32.3 mmHg. Pacemaker lead is present in the right ventricle. Atria Left atrium is mildly dilated. The right atrium size is normal. The interatrial septum is intact with no evidence for an atrial septal defect. Aortic Valve The aortic valve is normal in structure. Aortic valve is trileaflet. There is no aortic valvular sten osis. No aortic regurgitation is present. Mitral Valve Mitral annuloplasty changes are present. No evidence of mitral valve stenosis. Mild mitral regurgitat ion. Tricuspid Valve The tricuspid valve is normal in structure. There is no tricuspid valve stenosis. severe tricuspid re gurgitation. Pulmonic Valve The pulmonary valve is normal in structure. There is no pulmonic valvular stenosis. Trace to mild pul latha regurgitation. Great Vessels The aortic root is normal in size. The ascending aorta is normal in size. Aortic arch is normal in ca liber. IVC is normal in size and collapses >50% with inspiration. Pericardium There is no pericardial effusion. 2D Dimensions IVSD d PLAX 0.87 cm F: 0.6-1.0 LV Vol A2C d MOD 58.5 mL LVPW d PLAX 0.83 cm F: 0.6 - 1.0 LV Vol A4C d MOD 66.1 mL LVID d PLAX 5.13 cm F: 3.8 - 5.2 LA vol/ BSA A2C s A-L 47.8 mL/m2 LVDs 4.55 cm F: 2.2 - 3.5 LA vol/ BSA A4C s A-L 33.0 mL/m2 Ao Root d 3.02 cm F: 2.7 - 3.3 LA Vol/ BSA Biplane s A-L 40.5 mL/m2 RA Area A4C 13.48 cm2 LA Area A4C s MOD 17.12 cm2 RA Vol/ BSA A4C s A-L 25.0 mL/m2 LA Area A2C s MOD 20.23 cm2 Ao Asc Diam d 3.14 cm F: 2.3 - 3.1 LV EF A4C MOD 29.5 % LV EF Teichholz 24.0 % LV EF A2C MOD 30.3 % LVEF (Gary's) 29.22 % F: 54 - 74 LV EF Biplane MOD 29.2 % LV Volume 54.08 mL F: 46 - 106 SV 18.22 mL LV Volume Index 39.76 mL/m2 F: 29 - 61 SV Index 13.38 mL/m2 LV Vol Biplane MOD 62.4 mL FS 11.10 % M-Mode TAPSE 1.48 cm (M/F) >1.7 LV Diastology MV E' medial 0.048 (>0.07 m/s) E/A Ratio 1.6 LV E/e MED 26.50 (<14) MV E Vmax 1.27 (0.4-1.3 m/s) MV E' lateral 0.109 (>0.1 m/s) MV A Vmax 0.80 (0.4-1.3 m/s) LV E/e LAT 11.70 (<14) MV E/A Ratio 1.58 MV E/E' medial 26.53 MV E/E' lateral 11.71 Aortic Valve LVOT Area 2.77 cm2 AoV Area Vmax 2.05 cm2 LVOT Vmax 0.77 m/s AoV Area/ BSA (Vmax) 1.51 cm2/m2 LVOT Mean Ketan. 0.52 m/s ANAHI Mean Ketan. 1.79 cm2 LVOT Peak Grad 2.4 mmHg ANAHI Mean Ketan. Index 1.32 cm2/m2 LVOT Mean Grad 1.3 mmHg LVOT VTI 0.128 m LVOT Diam s 1.85 cm AoV Vmax 1.04 m/s Velocity Ratio 0.74 AoV Mean Ketan. 0.81 m/s AoV Peak Grad 4.3 mmHg LVOT SV 35.46 mL AoV Mean Grad 2.9 mmHg AoV VTI 0.224 m AoV Area VTI 1.58 cm2 AoV Area/ BSA (VTI) 1.16 cm/m2 Mitral Valve MV DT 250 (160-240 msec) MV PHT 73 msec MV Area PHT 3.03 cm2 MV VTI 0.538 m MV Area VTI 0.66 (4.0-6.0 cm2) Pulmonary Valve PV Vmax 0.56 (0.5-1.5 m/s) RVOT Peak Gr. 0.61 mmHg PV Peak Grad 1.2 mmHg RVOT Mean Gr. 0.35 mmHg PV Mean Grad 0.8 mmHg RVOT VTI 0.067 m PV VTI 0.107 m RVOT Vmax 0.39 m/s Tricuspid Valve TR Peak Grad 29.2 mmHg TR Vmax 2.71 m/s RA Pressure 3.00 mmHg RVSP (TR) 32.3 mmHg
== END ==
PROVIDERS: PCP Physician Assistant Medical; Visit Provider Internal Medicine Cardiovascular Disease
DX: I42.0 Dilated cardiomyopathy (principal); I50.22 Chronic systolic (congestive) heart failure; R06.02 Shortness of breath
CPT/HCPCS: 93306

== ENCOUNTER → 2022-02-14 13:32 | Outpatient (BNVA) | payer MEDICARE, MEDICAID, SELFPAY | PROVIDERS: PCP Physician Assistant Medical; Visit Provider Internal Medicine Cardiovascular Disease | DX: I42.0 Dilated cardiomyopathy (principal); I50.22 Chronic systolic (congestive) heart failure; R06.02 Shortness of breath; Z95.810 Presence of automatic (implantable) cardiac defibrillator | CPT/HCPCS: 99213 ==

== ENCOUNTER 2022-04-06 10:53 | Outpatient (CLI) | payer MEDICARE, MEDICAID, SELFPAY ==
--- NOTE | 2022-04-06 06:00 | DI.RAD_ITS ---
Exam(s) XR PAIN CLINIC LUMBAR SP 2V EXAM: XR PAIN CLINIC LUMBAR SP 2V CLINICAL HISTORY: Dx: Lumbar Spondylosis TECHNIQUE: 2D and realtime digital imaging was performed. Radiologist not present. CONTRAST MATERIAL: None. COMPARISON: No exams were available for comparison FINDINGS: Fluoroscopy was provided for pain management therapy. Please refer to procedure report or details. Cumulative dose: Ka,r=6.53 mGy IMPRESSION: RADIATION DOSE DELIVERED:
[2022-04-06 11:06] VITALS: BP 90/43; PULSE 71; RESP 20; TEMP 36.2; O2SAT 96
[2022-04-06 11:15] VITALS: BP 96/59
--- NOTE | 2022-04-06 11:53 | PDOC.PAIN_ITS ---
Pain Clinic Procedure Note Procedure Note Procedure Note: Lumbar/Sacral Medial Branch Blocks Oralia Castillo has been referred [facility] the [facility] for lumbar/sacral medial branch blocks. COMMENTS: She was previously evaluated in our clinic. Pre-procedure pain VAS = 6/10. Dx: Lumbosacral spondylosis without myelopathy Patient was interviewed and the medical record reviewed. There were no medical, pharmacologic, radiographic or other structural contraindications to attempting fluoroscopically guided local anesthetic lumbar/sacral medial branch blocks. Risks and expected side effects as well as potential benefit of the procedure were reviewed and voiced concerns addressed. The printed consent form was signed and witnessed. Standard time-out procedure was performed. Patient was placed in the prone position on the fluoroscopy table and automated blood pressure cuff and pulse oximeter applied. The skin entry points for approaching the anatomic target points of the segmental medial branches of bilateral L3, L4, and L5 were identified with anfluoroscopy and marked. Following thorough Chlorhexadine preparation of the skin and draping and 1% lidocaine infiltration of the skin entry points and subcutaneous tissues, a 22 gauge spinal needle was placed under fluoroscopic guidance down on to the target point for each respective segmental medial branch.Position was confirmed in A/P, oblique and lateral views with 0.25ml of omnipaque 240. Coult be this method .5ml 0.5% Bupivacaine was injected or 1% Lidocaine. Vital signs were stable throughout the procedure and were as recorded in the docflowsheet by the nursing staff. Follow up plans and appointments were discussed and was instructed to keep careful note of how the usual pain was modified by these injections. Specifically was asked to keep a pain diary for the next 24 hours using a numeric pain scale of 0-10 and report these results at the follow-up visit. Post procedure instruction was given as documented in the nursing documentation and having met discharge criteria. Patient was discharged from the [facility]. Based on the medial branches blocked today, if the patient has adequate relief and we are able to proceed to radiofrequency ablation, the treatment should result in the denervation of the bilateral L4-L5 and L5-S1 FACET JOINTS. We would expect to denervate a total of 4 facets during the radiofrequency ablation. COMMENTS: Post-procedure pain VAS = 1/10 Real Betancourt DO, MPH ABPMR-Pain Management [facility] CC: Paula Vazquez
[2022-04-06 12:02] VITALS: BP 122/67; PULSE 79; RESP 20; O2SAT 100
[2022-04-06] MEDS: Bupivacaine 0.5% Pres-Free 10 ML VIAL IJ (12:06)
[2022-04-06] MEDS: Omnipaque 240 MG/ML 50 ML BTL IJ (12:07)
== END 2022-04-06 10:54 | disposition home or self-care (01) ==
PROVIDERS: PCP Physician Assistant Medical; Visit Provider Preventive Medicine Occupational Medicine
DX: M47.817 Spondylosis without myelopathy or radiculopathy, lumbosacral region (principal); M54.50 Low back pain, unspecified
CPT/HCPCS: 64493; 64494; 72100; Q9967

== ENCOUNTER 2022-04-20 08:45 | Outpatient (CLI) | payer MEDICARE, MEDICAID, SELFPAY ==
[2022-04-20 08:55] VITALS: BP 106/59; PULSE 70; RESP 16; TEMP 36.7; O2SAT 98
--- NOTE | 2022-04-20 09:37 | DI.RAD_ITS ---
Exam(s) XR PAIN CLINIC LUMBAR SP 2V EXAM: XR PAIN CLINIC LUMBAR SP 2V CLINICAL HISTORY: DX: lumbar spondylosis. TECHNIQUE: Fluoroscopy was provided for the referring physician for guidance with performing pain cl inic injection procedure. COMPARISON: No exams were available for comparison FINDINGS: Please see procedure note for details. Fluoro time: 52.9 RADIATION DOSE DELIVERED: clayton Floyd=6.9 mGy
[2022-04-20] MEDS: Lidocaine 2% Pres-Free 5 ML VIAL IJ (09:47)
[2022-04-20] MEDS: Omnipaque 240 MG/ML 50 ML BTL IJ (09:47)
[2022-04-20 09:49] VITALS: BP 124/88; PULSE 73; RESP 18; O2SAT 100
--- NOTE | 2022-06-08 13:51 | PDOC.PAIN ---
Pain Clinic Procedure Note Procedure Note Procedure Note: PROCEDURE NOTE LUMBAR MEDIAL BRANCH DIAGNOSTIC BLOCKS #2 Date of Service: April 20, 2022 Patient: Oralia Castillo Provider: Real Betancourt DO, MPH Diagnosis: Lumbosacral Spondylosis without Myelopathy Post-operative diagnosis: Same Pre-procedure pain: VAS= 7/10 Pre-procedure Note History and Exam: Patient demonstrates today moderate to severe non- radicular back pain without neurologic deficit aggravated by hyperextension Yes Back pain greater than leg pain Yes Patient today has tenderness over the suspected joint(s) Yes History of post-traumatic injury No Hypertrophic arthropathy Yes Back pain associated with suspected motion segment instability or Hypermobility or pseudoarthrosis No Pre-testing pain score (VAS): 7/10 Previous medial branch block testing?: YES, LMBB #1 with good results Today's Operative Note Oralia Castillo was greeted by the nurse who verified the patients name and . Patient was then taken to the fluoroscopy suite. Oralia was interviewed and the medical record was reviewed. There were no medical contraindications to performing the bilateral lumbar medial branch nerve blocks. I first had a talk with the patient and discussed the potential risks, benefits, side effects, and alternatives of this procedure including but not limited to increased pain from the procedure, no pain relief, nerve damage, infection, and bleeding. She comprehended my conversation and accepts the risks and understands the goals of this diagnostic procedure. All questions and concerns from the patient were addressed. After I was comfortable that the patient was fully informed about this procedure, the printed consent form was signed. Standard time-out procedure was performed Oralia was placed in the prone position on the fluoroscopy table and automated blood pressure cuff and pulse oximeter were applied. The anatomic target points of the segmental medial branches of bilateral L3, L4, and L5 were identified with fluoroscopy. Following thorough Chlorhexadine preparation of the skin and draping, a 25 gauge 3.5 spinal needle was placed under fluoroscopic guidance down on to the target point for each respective segmental medial branch.Position was confirmed in A/P, oblique and lateral views and 0.25 mls of Omnipaque-240 at each segmental nerve. At each level we injected 0.5ml of Lidocaine 2%. (48 mls of Omnipaque was wasted) Oralia 's vital signs were stable throughout the procedure and were as recorded in the docflowsheet by the nursing staff. Postoperatively, today patient demonstrates the following changes with hyperextension and with tenderness over the suspected joint(s). Provacative testing using the Gamboa's facet loading test Right side Left side Directly before the block VAS (0-10) = 7/10 VAS (0-10) = 7/10 5 minutes after the block VAS (0-10) = 2/10 VAS (0-10) = 2/10 Percentage relief obtained with this diagnostic block 80% 80% Any improved physical functioning directly after the blocks? Able to move much better Next, Oralia was asked to record the percent pain relief and any changes in provocative maneuvers for the next 4 hours. She will report this information at the next business day to one of our nurses. Based on the medial branches blocked today, if the patient meets insurance criteria for radiofrequency, the treatment should result in the denervation of the bilateral L4-L5 and L5-S1 facet joint nerves. We would expect to denervate a total of 4 facets during the radiofrequency ablation. Discharge plan:: She will call back with her 0-4 hour post-procedure pain scores. Real Betancourt DO, MPH ABPMR-subspecialty board certification in Pain Medicine Attending Physician - Pain Management
== END 2022-04-20 08:46 | disposition home or self-care (01) ==
LOC: PC 08:45
PROVIDERS: PCP Physician Assistant Medical; Visit Provider Preventive Medicine Occupational Medicine
DX: M47.817 Spondylosis without myelopathy or radiculopathy, lumbosacral region (principal); M54.50 Low back pain, unspecified
CPT/HCPCS: 64493; 64494; 72100; Q9967

== ENCOUNTER 2022-05-10 17:17 | Outpatient (REF) | payer MEDICARE, MEDICAID, SELFPAY ==
[2022-05-10 16:07] LABS: Abs Immature Grans 0.03 10^3/uL (0.0-0.06); Absolute Basophil Count 0.06 10^3/uL (0.0-0.2); Absolute Lymphocyte Count 1.93 10^3/uL (1.2-3.4); Absolute Monocyte Count 0.94 10^3/uL (0.1-0.8); Basophils % 0.7; Eosinophils % 3.3; HCT 34.7 % (36.0-46.0); HGB 11.7 g/dL (11.2-15.7); Immature Grans % 0.3; Lymphocytes % 21.3; MCH 28.5 pg (27.0-33.0); MCHC 33.7 % (32.0-36.0); MCV 85 fL (80-95); Monocytes % 10.4; Platelet Count 292 10^3/uL (130-400); RDW 15.7 % (11.7-14.6); RDW-SD 48.2 fL; WBC 9.06 10^3/uL (4.4-10.8)
[2022-05-10 16:38] LABS: ALT 14 U/L (14-59); AST 36 U/L (15-37); Albumin 2.6 g/dL (3.4-5.0); Alkaline Phosphatase 174 U/L (46-116); Anion Gap 12.2 mmol/L (3-11); BUN 47 mg/dL (7-18); Bilirubin, Total 0.4 mg/dL (0.2-1.0); CO2 26.8 mmol/L (21.0-32.0); CREATININE 2.7 mg/dL (0.55-1.02); Chloride 94 mmol/L (98-107); Estimated GFR 17.32 (mL/min/1.73m2); Glucose 84 mg/dL (74-106); Potassium 4.2 mmol/L (3.5-5.1); Sodium 133 mmol/L (136-145); Total Protein 8.3 g/dL (6.4-8.2)
[2022-05-11 05:26] LABS: Vitamin D 25 Total 60.9 ng/mL (30-100)
== END 2022-05-10 17:18 | disposition home or self-care (01) ==
LOC: NCHCN 17:17
PROVIDERS: PCP Physician Assistant Medical; Visit Provider Physician Assistant Medical
DX: N18.30 Chronic kidney disease, stage 3 unspecified (principal)
CPT/HCPCS: 80053; 82306; 83735; 85025

== ENCOUNTER → 2022-05-12 00:35 | Outpatient (CLI) | payer MEDICARE, MEDICAID, SELFPAY ==
--- NOTE | 2022-05-12 | DI.RAD_ITS ---
Exam(s) XR CHEST 2V PA LATERAL EXAM: XR CHEST 2V PA LATERAL CLINICAL HISTORY: COUGH R05.8 CUSTODIAL COUGH, NOT PUI. TECHNIQUE: 2D digital imaging was performed. COMPARISON: CR CHEST 2 VIEWS PA,LAT from 04/20/2017 CR XR CHEST 1V IN DI DEPT from 04/29/2019 FINDINGS: 2 views: Sternotomy wires and prosthetic mitral valve again noted. Mild cardiomegaly. Unipolar left subclavian pacemaker again noted with lead tip in RV. Left lung is clear. There is platelike atelectasis and mild infiltrate in the right lower lobe. No pleural effusions evident. Osteopenia with multilevel compression fractures in the thoracic and lumbar spines. Again noted is v ertebroplasty cement within 2 thoracic vertebral bodies. IMPRESSION: Right middle lobe and right lower lobe atelectasis with mild infiltrate in the right lower lobe. No pleural effusions. Cardiac findings as above. No pulmonary edema. DATA REPOSITORY: RADIATION DOSE DELIVERED:
== END ==
PROVIDERS: PCP Physician Assistant Medical; Visit Provider Physician Assistant Medical
DX: J98.11 Atelectasis (principal)
CPT/HCPCS: 71046

== ENCOUNTER → 2022-05-24 02:31 | Outpatient (CLI) | payer MEDICARE, MEDICAID, SELFPAY ==
--- NOTE | 2022-05-24 | DI.CT_ITS ---
Exam(s) CT CHEST WO EXAM: CT CHEST WO CLINICAL HISTORY: COUGH R05.8 RT LUNG ATELECTASIS AND INFILTRATE ON CXR 05/11/22. TECHNIQUE: Imaging protocol: Axial computed tomography images were obtained and coronal and sagittal reformatted images were created and reviewed. COMPARISON: CT CHEST ABD PELVIS WO CONTRAST from 04/02/2017 CR XR CHEST 2V PA LATERAL from 05/12/2022 FINDINGS: Tracheobronchial tree: Patent where visualized. Pulmonary parenchyma: No consolidation or dominant measurable mass. Bulla are seen in the lower lobes bilaterally. Linear opacities are seen in the right middle and right lower lobes. This may represe nt atelectasis pneumonia or scarring. There is a 0.7 cm nodule in the right lower lobe. Mild depend ent atelectasis is seen in the lung bases. Mediastinum and Nell: No dominant adenopathy or fluid collection. Secretions are seen in the distal e sophagus. No wall thickening is seen in the esophagus. Thyroid gland: Unremarkable. Pleura: No effusion or pneumothorax. Heart: Mild cardiomegaly. Mild coronary artery calcification. There is an aortic valve replacement. A transvenous cardiac pacer is in place. No pericardial effusion. Aorta: Thoracic aorta non-dilated. Mild atherosclerosis. Upper abdomen: Unremarkable. Lymph nodes: Within normal limits. Soft tissues: Unremarkable. Bones:Within normal limits for the patient's age. There is an S-type thoracic scoliosis. There are numerous old thoracic and upper lumbar compression fracture deformities. Vertebroplasty is seen in 2 midthoracic vertebral bodies. Sternal wires are in place. IMPRESSION: 1. Linear opacity seen in the right middle and right lower lobes corresponding to the findings on the chest x-ray. These areas may represent atelectasis, pneumonia or scarring. Please correlate clinic ally. 2. 0.7 cm nodule in the right lower lobe. For low risk patients, follow-up examination in 6-12 month s is recommended. For high risk patients (history of smoking or other risk factors), a 6-12 month fo llow-up examination is recommended followed by an 18-24 month examination. (Korin et al. Guidelin es for management of incidental pulmonary nodules detected on CT images: From the Fleischner society 2017). RADIATION DOSE DELIVERED: 137.64 mGy.cm Total DLP 137.64 mGy.cm Total DLP DATA REPOSITORY: All CT scans at this facility are submitted to the National Radiology Data Registry (NRDR) Dose Index Registry (DIR) with the [employer] (ACR). RADIATION OPTIMIZATION: All CT scans at this facility use at least one of these dose optimization te chniques: automated exposure control; mA and/or kV adjustment per patient size (includes targeted exa ms where dose is matched to clinical indication); or iterative reconstruction.
== END ==
PROVIDERS: PCP Physician Assistant Medical; Visit Provider Physician Assistant Medical
DX: R91.8 Other nonspecific abnormal finding of lung field (principal); R91.1 Solitary pulmonary nodule; I50.22 Chronic systolic (congestive) heart failure; Z95.810 Presence of automatic (implantable) cardiac defibrillator
CPT/HCPCS: 71250; 93005; 93282

== ENCOUNTER 2022-05-24 14:28 | Outpatient (CLI) | payer MEDICARE, MEDICAID, SELFPAY ==
--- NOTE | 2022-05-24 14:15 | RT.EKG_ITS ---
APPROVED REPORT Exam: Resting ECG Reason for Exam: irregular cardiac rhythm Patient Location: O HR:66 bpm ECG Measurements Heart Rate 66 AXIS ND 176 P 19 QRSd 110 QRS -39 QT 459 T [id number] QTc 481 Conclusion Sinus rhythm...normal P axis, V-rate 50- 99 Atrial premature complex...SV complex w/ short R-R interval Left axis deviation...QRS axis (-30,-90) Abnormal R-wave progression, late transition...QRS area<0 in V5/V6 N[address]-T abnormalities
== END 2022-05-24 14:29 | disposition home or self-care (01) ==
LOC: DI.CARD 14:29
PROVIDERS: PCP Physician Assistant Medical; Visit Provider Internal Medicine Cardiovascular Disease
DX: I50.22 Chronic systolic (congestive) heart failure (principal); R94.31 Abnormal electrocardiogram [ECG] [EKG]; I49.1 Atrial premature depolarization
CPT/HCPCS: 93010

== ENCOUNTER → 2022-08-15 13:41 | Outpatient (BNVA) | payer MEDICARE, MEDICAID, SELFPAY | PROVIDERS: PCP Physician Assistant Medical; Visit Provider Internal Medicine Cardiovascular Disease | DX: I42.8 Other cardiomyopathies (principal); I34.0 Nonrheumatic mitral (valve) insufficiency; Z95.810 Presence of automatic (implantable) cardiac defibrillator; R06.09 Other forms of dyspnea | CPT/HCPCS: 99214; 99213 ==

== ENCOUNTER 2022-10-03 13:04 | Outpatient (REF) | payer MEDICARE, MEDICAID, SELFPAY ==
[2022-10-03 16:44] LABS: Abs Immature Grans 0.02 10^3/uL (0.0-0.06); Absolute Basophil Count 0.06 10^3/uL (0.0-0.2); Absolute Eosinophil Count 0.29 10^3/uL (0.0-0.7); Absolute Monocyte Count 0.61 10^3/uL (0.1-0.8); Absolute Neutrophil Count 4.29 10^3/uL (1.2-6.7); Basophils % 0.8; HCT 35.8 % (36.0-46.0); HGB 12.2 g/dL (11.2-15.7); Immature Grans % 0.3; Lymphocytes % 26.5; MCHC 34.1 % (32.0-36.0); MCV 85 fL (80-95); Monocytes % 8.5; Neutrophils % 59.9; Platelet Count 244 10^3/uL (130-400); RDW 14.6 % (11.7-14.6); RDW-SD 45.4 fL; WBC 7.17 10^3/uL (4.4-10.8)
[2022-10-03 16:54] LABS: Anion Gap 7.4 mmol/L (3-11); BUN 32 mg/dL (7-18); CO2 30.6 mmol/L (21.0-32.0); CREATININE 2.3 mg/dL (0.55-1.02); Chloride 96 mmol/L (98-107); Glucose 97 mg/dL (74-106); Potassium 3.9 mmol/L (3.5-5.1); Sodium 134 mmol/L (136-145)
== END 2022-10-03 13:05 | disposition home or self-care (01) ==
LOC: NCHCN 13:04
PROVIDERS: PCP Physician Assistant Medical; Visit Provider Physician Assistant Medical
DX: N18.30 Chronic kidney disease, stage 3 unspecified (principal)
CPT/HCPCS: 80048; 85025

== ENCOUNTER 2022-11-15 13:44 | Outpatient (CLI) | payer MEDICARE, MEDICAID, SELFPAY | END 2022-11-15 13:45 | disposition home or self-care (01) | LOC: DI.CARD 14:41 | PROVIDERS: PCP Physician Assistant Medical; Referring Provider Physician Assistant Medical; Visit Provider Internal Medicine Cardiovascular Disease | CPT/HCPCS: 93010 ==

== ENCOUNTER → 2022-11-15 13:44 | Outpatient (BNVA) | payer MEDICARE, MEDICAID, SELFPAY | PROVIDERS: PCP Physician Assistant Medical; Referring Provider Physician Assistant Medical; Visit Provider Internal Medicine Cardiovascular Disease | DX: I50.22 Chronic systolic (congestive) heart failure (principal); Z95.810 Presence of automatic (implantable) cardiac defibrillator | CPT/HCPCS: 93005; 93282 ==

== ENCOUNTER 2022-11-23 01:23 | Outpatient (CLI) | payer MEDICARE, MEDICAID, SELFPAY ==
--- NOTE | 2022-11-23 | DI.CT_ITS ---
Exam(s) CT CHEST WO EXAM: CT CHEST WO CLINICAL HISTORY: 6 MO F/U, F/U PULMONARY NODULES, R91.1 TECHNIQUE: Imaging Protocol: Axial computed tomography images with coronal and sagittal reformatted images were created and reviewed CONTRAST MATERIAL: Intravenous: Omnipaque 350 Contrast volume:structured data ml. COMPARISON: CT CT CHEST WO from 05/24/2022 FINDINGS: Pulmonary parenchyma: Linear atelectasis now seen in the left upper lobe. Previously noted densities in the right middle and lower lobes no longer present. Previously noted nodule in the right lung ba se no longer present. Minimal patchy densities now seen left lower lobe. Emphysematous changes also present greater at the lung bases. No consolidation. No dominant measurable mass. Tracheobronchial tree: No bronchiectasis or mucous plugging. Mediastinum and Nell: No dominant adenopathy or fluid collection. Pleura: No effusion or pneumothorax. Heart: The heart is dilated , particularly left atrium.. Mitral valve prosthesis. Minimal coronary artery calcifications are seen. Pacemaker. Aorta: Thoracic aorta non-dilated. Upper abdomen: Unremarkable. Bones: Sternal wires. Stable multiple severe compression fractures. Soft tissues: Unremarkable. IMPRESSION: Previously noted nodule at the right lung base is no longer present. RADIATION DOSE DELIVERED: 295.88mGy.cm Total DLP DATA REPOSITORY: All CT scans at this facility are submitted to the National Radiology Data Registry (NRDR) Dose Index Registry (DIR) with the [employer] (ACR). RADIATION OPTIMIZATION: All CT scans at this facility use at least one of these dose optimization te chniques: automated exposure control; mA and/or kV adjustment per patient size (includes targeted exa ms where dose is matched to clinical indication); or iterative reconstruction.
== END 2022-11-23 01:43 ==
PROVIDERS: PCP Physician Assistant Medical; Visit Provider Physician Assistant Medical
DX: R91.8 Other nonspecific abnormal finding of lung field (principal)
CPT/HCPCS: 71250

== ENCOUNTER 2023-01-02 11:05 | Outpatient (REF) | payer MEDICARE, MEDICAID, SELFPAY ==
[2023-01-02 16:57] LABS: ALT 14 U/L (14-59); AST 18 U/L (15-37); Albumin 3.4 g/dL (3.4-5.0); Alkaline Phosphatase 327 U/L (46-116); Anion Gap 5.6 mmol/L (3-11); BUN 37 mg/dL (7-18); Bilirubin, Total 0.2 mg/dL (0.2-1.0); CO2 30.4 mmol/L (21.0-32.0); CREATININE 2.4 mg/dL (0.55-1.02); Calcium 9.2 mg/dL (8.5-10.1); Chloride 99 mmol/L (98-107); Glucose 92 mg/dL (74-106); Magnesium 2.3 mg/dL (1.8-2.4); Potassium 4.1 mmol/L (3.5-5.1); Sodium 135 mmol/L (136-145); TSH (W/Ref FT4) 3.81 uIU/mL (0.36-3.74); Total Protein 8.1 g/dL (6.4-8.2)
== END 2023-01-02 11:06 | disposition home or self-care (01) ==
LOC: NCHCN 11:05
PROVIDERS: PCP Physician Assistant Medical; Visit Provider Physician Assistant Medical
DX: N18.30 Chronic kidney disease, stage 3 unspecified (principal); E83.42 Hypomagnesemia; I10 Essential (primary) hypertension
CPT/HCPCS: 80053; 83735; 84439; 84443

== ENCOUNTER → 2023-03-19 13:38 | Outpatient (BNVA) | payer MEDICARE, MEDICAID, SELFPAY | PROVIDERS: PCP Physician Assistant Medical; Visit Provider Internal Medicine Cardiovascular Disease | DX: Z98.890 Other specified postprocedural states (principal); I42.8 Other cardiomyopathies; Z95.810 Presence of automatic (implantable) cardiac defibrillator | CPT/HCPCS: 99214 ==

== ENCOUNTER 2023-04-03 15:55 | Outpatient (REF) | payer MEDICARE, MEDICAID, SELFPAY ==
[2023-04-03 16:35] LABS: Anion Gap 10.4 mmol/L (3-11); BUN 40 mg/dL (7-18); CO2 26.6 mmol/L (21.0-32.0); CREATININE 2.4 mg/dL (0.55-1.02); Calcium 9.4 mg/dL (8.5-10.1); Chloride 98 mmol/L (98-107); FREE T4 1.02 ng/dL (0.76-1.46); Glucose 98 mg/dL (74-106); Potassium 4.1 mmol/L (3.5-5.1); Sodium 135 mmol/L (136-145); TSH 2.65 uIU/mL (0.36-3.74)
[2023-04-04 19:29] LABS: T3, Total 120 ng/dL (97-169)
== END 2023-04-03 15:56 | disposition home or self-care (01) ==
LOC: NCHCN 15:55
PROVIDERS: PCP Physician Assistant Medical; Visit Provider Physician Assistant Medical
DX: R94.6 Abnormal results of thyroid function studies (principal); N18.30 Chronic kidney disease, stage 3 unspecified
CPT/HCPCS: 80048; 84439; 84443; 84480

== ENCOUNTER → 2023-05-23 13:44 | Outpatient (BNVA) | payer MEDICARE, MEDICAID, SELFPAY | PROVIDERS: PCP Physician Assistant Medical; Visit Provider Internal Medicine Cardiovascular Disease | DX: Z95.810 Presence of automatic (implantable) cardiac defibrillator (principal); I50.22 Chronic systolic (congestive) heart failure | CPT/HCPCS: 93282 ==

== ENCOUNTER 2023-07-03 14:02 | Outpatient (REF) | payer MEDICARE, MEDICAID, SELFPAY ==
[2023-07-03 17:01] LABS: COMMENT (LAB VIEW ONLY) 41.78 mg/dL; PROTEIN 12.4 mg/dL; Prot/Crea Ur Ratio 0.29
== END 2023-07-03 14:03 | disposition home or self-care (01) ==
LOC: NCHCN 14:02
PROVIDERS: PCP Physician Assistant Medical; Visit Provider Physician Assistant Medical
DX: N18.30 Chronic kidney disease, stage 3 unspecified (principal)
CPT/HCPCS: 82565; 84156

== ENCOUNTER → 2023-10-19 13:36 | Outpatient (BNVA) | payer MEDICARE, MEDICAID, SELFPAY | PROVIDERS: PCP Physician Assistant Medical; Referring Provider Physician Assistant Medical; Visit Provider Internal Medicine Interventional Cardiology | DX: I95.1 Orthostatic hypotension (principal); I42.8 Other cardiomyopathies; Z95.810 Presence of automatic (implantable) cardiac defibrillator | CPT/HCPCS: 99213 ==

== ENCOUNTER → 2023-11-08 00:43 | Outpatient (CLI) | payer MEDICARE, MEDICAID, SELFPAY ==
--- NOTE | 2023-11-08 08:03 | DI.US_ITS ---
APPROVED REPORT EXAM: Comprehensive 2D, Doppler, and color-flow Echocardiogram Patient Location: Out-Patient Construction Site Manager: Beba Cortez RDCS (AE) Indications: Nonischemic cardiomyopathy, CHF, MV Annuloplasty Other Information Study Quality: Adequate Conclusion Borderline dilated left ventricle. Wall thickness is normal. EF 30 to 35% with global hypokinesis Normal right ventricular size and function Both atria are moderately dilated Device lead noted right heart Trileaflet aortic valve without stenosis or regurgitation Patient is status post mitral valve repair. There is residual mild mitral regurgitation Normal tricuspid valve with moderate tosevere regurgitation. Estimated right systolic pressure is 50 mmHg Wall motion Left Ventricle Left ventricle is mildly dilated. Left ventricular ejection fraction is moderately decreased. There i s normal left ventricular wall thickness. Regional wall motion abnormalities are noted. There is no v entricular septal defect visualized. LVEF is 30-35%. Right Ventricle Right ventricle is grossly normal in size. Right ventricular systolic function is grossly normal. Dev ice lead is present in the right ventricle. Atria Left atrium is moderately dilated. Right atrium is moderately dilated. The interatrial septum is inta ct with no evidence for an atrial septal defect. Aortic Valve The aortic valve is normal in structure. Aortic valve is trileaflet. There is no aortic valvular sten osis. No aortic regurgitation is present. Mitral Valve Mitral annuloplasty changes are present. No evidence of mitral valve stenosis. Mild mitral regurgitat ion. Tricuspid Valve The tricuspid valve is normal in structure. There is no tricuspid valve stenosis. Moderate to severe tricuspid regurgitation. The RVSP is 49.7mmHg. Pulmonic Valve The pulmonary valve is normal in structure. There is no pulmonic valvular stenosis. Trace to mild pul latha regurgitation. Great Vessels The aortic root is normal in size. The ascending aorta is mildly dilated. IVC is normal in size and c ollapses >50% with inspiration. Pericardium There is no pericardial effusion. 2D Dimensions IVSD d PLAX 0.70 cm F: 0.6-1.0 Ao Root d 3.25 cm F: 2.7 - 3.3 LVPW d PLAX 0.68 cm F: 0.6 - 1.0 Ao Asc Diam d 3.27 cm F: 2.3 - 3.1 LVID d PLAX 5.49 cm F: 3.8 - 5.2 LVDs 5.02 cm F: 2.2 - 3.5 LV EF Teichholz 18.9 % FS 8.66 % LV EDV (Teich) 146.9 mL LV ESV (Teich) 119.2 mL M-Mode TAPSE 2.12 cm (M/F) >1.7 Auto EF LV EDV A4C 78.9 mL LV EDV A2C 95.1 mL LV EDV BP 86.6 mL LV ESV A4C 56.2 mL LV ESV A2C 66.3 mL LV ESV BP 60.9 mL LVEF(%) A4C 28.8 % LVEF(%) A2C 30.3 % LVEF(%) BP 29.7 % LV SV A4C 22.7 ml LV SV A2C 28.8 ml LV SV BP 25.7 ml LV CO A4C 1.7 L/min LV CO A2C 2.3 L/min LV CO BP 2.0 L/min HR A4C 76.76 BPM HR A2C 78.60 BPM LV EDV Index (BP) LV Strain Long Pk Overal Avg (s) 8.49 LA Volume LA Length A4C 5.5 cm LA Length A2C 5.7 cm LA Area A4C s 21.23 cm2 LA Area A2C s 24.42 cm2 LA Vol A4C A-L 69.75 mL LA Vol A2C A-L 88.29 mL LA Vol Biplane A-L 80.2 mL LA Vol/BSA A4C A-L LA Vol/BSA A2C A-L LA Vol/BSA BP A-L 61.2 mL/m2 LA Vol A4C MOD 65.2 mL LA Vol A2C MOD 83.8 mL LA Vol BP MOD 75.5 mL RA Volume RA Area A4C 15.0 cm2 RA ESV A4C (A-L) 35.0mL RA Vol/BSA A4C A-L RA Length A4C 5.4 cm RA ESV A4C (MOD) 33.5mL LV Diastology MV E Vmax 1.61 (0.4-1.3 m/s) MV A Vmax 0.60 (0.4-1.3 m/s) E/A Ratio 2.7 Aortic Valve AoV Vmax 0.89 m/s LVOT Vmax 0.62 m/s AoV Peak Grad 3.2 mmHg LVOT Peak Grad 1.5 mmHg AoV Area (Vmax) 2.00 cm2 LVOT VTI 0.121 m AoV VTI 0.183 m LVOT Mean Grad 0.8 mmHg AoV Mean Ketan. 0.63 m/s LVOT SV 35.08 mL AoV Mean Grad 1.8 mmHg LVOT Diam s 1.90 cm AoV Area (VTI) 1.92 cm2 Velocity Ratio 0.70 Mitral Valve MV DT 219 (160-240 msec) MV Vmax TIPS 1.66 m/s MV Mean Grad 3.2 (<2mmHg) MV VTI 0.352 m Pulmonary Valve PV Vmax 0.66 (0.5-1.5 m/s) RVOT Vmax 0.56 m/s PV Peak Grad 1.8 mmHg RVOT Peak Gr. 1.2 mmHg PV Mean Ketan 0.49 m/s RVOT VTI 0.147 m PV Mean Grad 1.1 mmHg RVOT Mean Gr. 0.6 mmHg Tricuspid Valve RA Pressure 3.00 mmHg TR Vmax 3.42 m/s TV S' 0.14 m/s TR Peak Grad 46.7 mmHg RVSP (TR) 49.7 mmHg
== END ==
PROVIDERS: PCP Physician Assistant Medical; Visit Provider Internal Medicine Interventional Cardiology
DX: I50.9 Heart failure, unspecified (principal)
CPT/HCPCS: 93306

== ENCOUNTER → 2023-11-16 13:49 | Outpatient (BNVA) | payer MEDICARE, MEDICAID, SELFPAY | PROVIDERS: PCP Physician Assistant Medical; Referring Provider Physician Assistant Medical; Visit Provider Internal Medicine Cardiovascular Disease | DX: I42.8 Other cardiomyopathies (principal); Z95.810 Presence of automatic (implantable) cardiac defibrillator; I34.0 Nonrheumatic mitral (valve) insufficiency; Z98.890 Other specified postprocedural states | CPT/HCPCS: 99213 ==

== ENCOUNTER → 2023-11-21 13:31 | Outpatient (BNVA) | payer MEDICARE, MEDICAID, SELFPAY | PROVIDERS: PCP Physician Assistant Medical; Referring Provider Physician Assistant Medical; Visit Provider Internal Medicine Cardiovascular Disease | DX: Z95.810 Presence of automatic (implantable) cardiac defibrillator (principal); I50.22 Chronic systolic (congestive) heart failure | CPT/HCPCS: 93282 ==

== ENCOUNTER 2024-01-01 17:00 | Outpatient (REF) | payer MEDICARE, MEDICAID, SELFPAY ==
[2024-01-01 16:55] LABS: Anion Gap 12.1 mmol/L (3-11); CO2 25.9 mmol/L (21.0-32.0); CREATININE 2.5 mg/dL (0.55-1.02); Chloride 100 mmol/L (98-107); Estimated GFR 19.69 (mL/min/1.73m2); Ferritin 42 ng/mL (8-252); Glucose 87 mg/dL (74-106); Magnesium 2.1 mg/dL (1.8-2.4); Potassium 4.5 mmol/L (3.5-5.1); Sodium 138 mmol/L (136-145)
[2024-01-01 17:02] LABS: BUN 39 mg/dL (7-18); Calcium 8.8 mg/dL (8.5-10.1)
[2024-01-02 16:26] LABS: NT-proBNP 2828 pg/mL (<300)
== END 2024-01-01 17:01 | disposition home or self-care (01) ==
LOC: NCHCN 17:00
PROVIDERS: PCP Physician Assistant Medical; Visit Provider Physician Assistant Medical
DX: N18.30 Chronic kidney disease, stage 3 unspecified (principal); I50.9 Heart failure, unspecified
CPT/HCPCS: 80048; 82728; 83735; 83880

== ENCOUNTER 2024-01-17 10:39 | Outpatient (CLI) | payer MEDICARE, MEDICAID, SELFPAY ==
[2024-01-17 11:12] LABS: Anion Gap 7.6 mmol/L (3-11); BUN 36 mg/dL (7-18); CO2 29.4 mmol/L (21.0-32.0); CREATININE 2.4 mg/dL (0.55-1.02); Calcium 8.9 mg/dL (8.5-10.1); Chloride 100 mmol/L (98-107); Estimated GFR 20.68 (mL/min/1.73m2); Glucose 89 mg/dL (74-106); NT-proBNP 2951 pg/mL (<300); Potassium 4.8 mmol/L (3.5-5.1); Sodium 137 mmol/L (136-145)
== END 2024-01-17 10:40 | disposition home or self-care (01) ==
LOC: LBO 10:39
PROVIDERS: PCP Physician Assistant Medical; Visit Provider Physician Assistant Medical
DX: I50.9 Heart failure, unspecified (principal)
CPT/HCPCS: 36415; 80048; 83880

== ENCOUNTER 2024-01-29 11:46 | Outpatient (CLI) | payer MEDICARE, MEDICAID, SELFPAY ==
[2024-01-29 12:22] LABS: Anion Gap 7.8 mmol/L (3-11); BUN 40 mg/dL (7-18); CO2 30.2 mmol/L (21.0-32.0); CREATININE 2.4 mg/dL (0.55-1.02); Calcium 8.9 mg/dL (8.5-10.1); Chloride 99 mmol/L (98-107); Estimated GFR 20.68 (mL/min/1.73m2); Glucose 88 mg/dL (74-106); NT-proBNP 2325 pg/mL (<300); Potassium 4.4 mmol/L (3.5-5.1); Sodium 137 mmol/L (136-145)
== END 2024-01-29 11:47 | disposition home or self-care (01) ==
LOC: LBO 11:46
PROVIDERS: PCP Physician Assistant Medical; Visit Provider Physician Assistant Medical
DX: I50.9 Heart failure, unspecified (principal)
CPT/HCPCS: 36415; 80048; 83880

== ENCOUNTER 2024-04-17 03:57 | Outpatient (CLI) | payer MEDICARE, MEDICAID, SELFPAY ==
--- OUTSIDE RECORDS SUMMARY | 2024-04-17 03:59 | XMS_ITS | Encounter Summary ---
[place] [address] Care Team Providers Care Granite Fabricator Name Role Phone None Primary Care Provider Unavailabl e Encounter Details Date Type Department Care Team (Late st Contact Info) Description 11/13/2019 External Results Cardiology at [address] [id number] Social History Tobacco Use Types Packs/Day Years Used Date Smoking Tobacco: Never Assessed Sex and Gender Information Value Date Recorded Sex Assigned at Not on file Gender Identity Not on file Sexual Orientation Not on file documented as of this encounter Plan of Treatment Not on file documented as of this encounter Procedures Procedure Name Priority Date/Time Associated Diagnosis Comments EP DEVICE SCAN Routine 10/22/2019 documented in this encounter Results * Scan Doc: EP Device (10/22/2019) Anatomical Region Laterality Modality Other Historical Provider MD STOREY MGR SCAN EX T ORDR/RSLT documented in this encounter Visit Diagnoses Not on filedocumented in this encounter Care Teams Granite Fabricator Relationship Specialty Start Date End Date None None PCP - General 04/04/17 documented as of this encounter
--- OUTSIDE RECORDS SUMMARY | 2024-04-17 03:59 | XMS_ITS | Encounter Summary ---
Author Organization [place] [address] Care Team Providers Care Bricklayer'S Assistant Name Role Phone Unknown Primary Care Provider Unavailabl e Reason for Referral * Diagnostic Test (Routine) - Closed Specialty Diagnoses / Procedures Referred By Contac t Referred To Contact Radiology Diagnoses Wedge fracture of thoracic vertebra, unspecified thoracic vertebral level, initial encounter Procedures IR Vertebroplasty Harriett Tyson MD [facility] [place] [address] [facility] [place] [address] Referral ID Status Reason Start Date Expiration Date V isits Requested Visits Authorized [id number] Closed Specialty Service Requested 04/03/2017 04/03/2018 1 1 Encounter Details Date Type Department Care Team (Late st Contact Info) Description 04/03/2017 [place] [address] Harriett Tyson MD [facility] [place] [address] Wedge fracture of thoracic vertebra, unspecified thoracic vertebral level, initial encounter (Primary Dx) Social History Tobacco Use Types Packs/Day Years Used Date Smoking Tobacco: Never Assessed Sex and Gender Information Value Date Recorded Sex Assigned at Not on file Gender Identity Not on file Sexual Orientation Not on file documented as of this encounter Progress Notes * Harriett Tyson - 04/03/2017 3:41 PM EDT Images from the original note were not included. Pre Procedure Neuroradiology Note: PCP: Unknown Referring Physician: Outside referral, discussed with Dr. Hatfield of neuroradiology Indication: Oralia Castillo is a 66 y.o. female, who had a fall from standing 1 week ago with reportedlow back pain.Per report, she denies any weakness, numbness, tingling, bowel or bladder dysfunction. CT revealed compression new / worsening fractures of T5 and T7 vertebral fractures and additional unchanged compression fractures at other levels. Planned Procedure: T5 and T7 vertebroplasty Pertinent Medical / Surgical History: # VIR History No past medical history on file. Labs: No results found for: WBC, HGB, HCT, MCV, PLATELET Physical Exam: Pending (to be assessed in angio the day of procedure) ASA Score: Pending (to be assessed in angio the day of procedure) Mallampati Score: Pending (to be assessed in angio the day of procedure) Medications Aspirin No known anticoagulation. Allergies Allergies Allergen Reactions ??? Abilify [Aripiprazole] ??? Codeine Nausea And Vomiting Imaging CT 04/02/2017 Assessment Oralia Castillo is a 66 y.o. female, who had a fall from standing 1 week ago with reported low back pain. Per report, she denies any weakness, numbness, tingling, bowel or bladder dysfunction. CT revealed new/worsening compression fractures of T5 and T7 vertebral fractures and additional unchanged compression fractures at other levels. Dr. Hatfield saw patient in the ED and discussed the case with the author of this note. Plan: Vertebralplasty at T5 and T7. Tentatively scheduled for 12:30pm on 04/04/2017 # Medications to STOP: None # Labs to order day of procedure: PT and INR # Sedation requirements Moderate sedation # Prophylactic Antibiotics Ancef # Additional medications for procedure Lidocaine # Planned access site Lumbar # Position Prone # Consent: To be obtained day of procedure HARRIETT TYSON MD PGY-4, Radiology 04/03/2017 documented in this encounter Plan of Treatment Not on file documented as of this encounter Results * IR Vertebroplasty (04/04/2017 2:26 PM EDT) Anatomical Region Laterality Modality Spine X-Ray Angiograph y Impressions 04/04/2017 4:27 PM EDT T5 and T7 vertebroplasty. Narrative 04/04/2017 4:27 PM EDT EXAMINATION: IR VERTEBROPLASTY CLINICAL HISTORY: T5 and T7 vertebral fractures; Exam/Procedure requested: Vertebroplasty at T5 and T7 TECHNIQUE: The risks and benefits of the procedure explained to the patient informing consent was obtained. The patient was placed prone on the angiography table and the overlying skin was prepped and draped in usual sterile fashion. The T5 and T7 vertebral fractures were localized under fluoroscopic guidance and lidocaine was used for local anesthesia. Under careful fluoroscopic guidance, bipedicular 13-gauge Rowena needles was advanced into the anterior third of the T5 vertebral body. At T7 a right transpedicular 13-gauge direct needle was advanced into the anterior third of the vertebral body. 1 cc needles were positioned, polymethyl methacrylate was mixed and injected under careful fluoroscopic guidance. There was a small amount of cement extravasation at both levels related to the severe degree of compression. Due to the painful nature of the procedure, split doses of fentanyl and Versed were administered by interventional radiology nursing. I, Dr. real, performed the procedure and was present for the interservice administration of the sedation. There was continuous monitoring of blood pressure, pulse and oxygen aeration. COMPARISON: Outside CT thoracic spine dated 04/02/2017. FINDINGS: See above. Procedure Note Real Real MD - 04/04/2017 EXAMINATION: IR VERTEBROPLASTY CLINICAL HISTORY: T5 and T7 vertebral fractures; Exam/Procedurerequested: Vertebroplasty at T5 and T7 TECHNIQUE: The risks and benefits of the procedure explained to thepatient informing consent was obtained. The patient was placed prone on theangiography table and the overlying skin was prepped and draped in usual sterilefashion. The T5 and T7 vertebral fractures were localized under fluoroscopicguidance and lidocaine was used for local anesthesia. Under careful fluoroscopicguidance, bipedicular 13-gauge Rowena needles was advanced into the anterior thirdof the T5 vertebral body. At T7 a right transpedicular 13-gauge direct needlewas advanced into the anterior third of the vertebral body. 1 cc needleswere positioned, polymethyl methacrylate was mixed and injected under careful fluoroscopic guidance. There was a small amount of cement extravasation atboth levels related to the severe degree of compression. Due to the painfulnature of the procedure, split doses of fentanyl and Versed were administered by interventional radiology nursing. I, Dr. real, performed the procedureand was present for the interservice administration of the sedation. There was continuous monitoring of blood pressure, pulse and oxygen aeration. COMPARISON: Outside CT thoracic spine dated 04/02/2017. FINDINGS: See above. IMPRESSION T5 and T7 vertebroplasty. Donald Hatfield MD IMG IR ORDERABLES documented in this encounter Visit Diagnoses Diagnosis Wedge fracture of thoracic vertebra, unspecified thoracic vertebral level, initial encounter- Primary Wedge fracture of thoracic vertebra, unspecified thoracic vertebral level, initial encounter documented in this encounter Care Teams Bricklayer'S Assistant Relationship Specialty Start Date End Date Unknown None PCP - General 08/09/10 04/03/17 documented as of this encounter
--- OUTSIDE RECORDS SUMMARY | 2024-04-17 03:59 | XMS_ITS | Encounter Summary ---
Author Organization [facility] [place] [address] Care Team Providers Care Riddler Operator Name Role Phone Unknown Primary Care Provider Unavailabl e Encounter Details Date Type Department Care Team (Latest Contact Info) Description 11/03/2016 12:05 AM EST - 11/03/2016 11:59 PM EST Hospital Encounter [place] [address] Oj Cosme MD [facility] [place] [address] Pain Discharge Disposition: Home Social History Tobacco Use Types Packs/Day Years Used Date Smoking Tobacco: Never Assessed Sex and Gender Information Value Date Recorded Sex Assigned at Not on file Gender Identity Not on file Sexual Orientation Not on file documented as of this encounter Plan of Treatment Not on file documented as of this encounter Procedures Procedure Name Priority Date/Time Associated Diagnosis Comments FILM LIBRARY STORAGE ONLY DX SPINE Routine 11/03/2016 12:05 AM EST Pain documented in this encounter Results * Film Library- Storage Only DX Spine (11/03/2016 12:05 AM EST) Narrative RAD - 11/03/2016 8:59 PM EST This exam is for storage only and is auto-finalizing. Oj Cosme MD IMG FILM LIBRARY ORD ERABLES [place], [place] documented in this encounter Visit Diagnoses Diagnosis Pain Generalized pain documented in this encounter Care Teams Riddler Operator Relationship Specialty Start Date End Date Unknown None PCP - General 08/09/10 04/03/17 documented as of this encounter
--- OUTSIDE RECORDS SUMMARY | 2024-04-17 03:59 | XMS_ITS | Encounter Summary ---
Author Organization [facility] [place] [address] Care Team Providers Care Driver Guide Name Role Phone Unknown Primary Care Provider Unavailabl e Encounter Details Date Type Department Care Team (Latest Contact Info) Description 11/03/2016 - 11/03/2016 12:04 AM EST Hospital Encounter [place] [address] Oj Cosme MD [facility] [place] [address] Pain Discharge Disposition: Home Social History Tobacco [...] Associated Diagnosis Comments FILM LIBRARY STORAGE ONLY CT SPINE Routine 11/03/2016 12:00 AM EST Pain documented in this encounter Results * Film Library- Storage Only CT Spine (11/03/2016 12:00 AM EST) Narrative RAD - 11/03/2016 7:31 PM EST This exam is for storage only and is auto-finalizing. Oj Cosme MD IMG FILM LIBRARY ORD ERABLES [place], [place] documented in this encounter Visit Diagnoses Diagnosis Pain Generalized pain documented in this encounter Care Teams Driver Guide Relationship Specialty Start Date End Date Unknown None PCP - General 08/09/10 04/03/17 documented as of this encounter
--- OUTSIDE RECORDS SUMMARY | 2024-04-17 03:59 | XMS_ITS | Encounter Summary ---
Author Organization [facility] [place] [address] Care Team Providers Care Supervisory Clerk Name Role Phone Unknown Primary Care Provider Unavailabl e Encounter Details Date Type Department Care Team (Latest Contact Info) Description 04/02/2017 12:15 AM EDT - 04/02/2017 11:59 PM EDT Hospital Encounter [place] [address] Donald Hatfield MD [facility] [place] [address] Pain Discharge Disposition: Home Social History Tobacco [...] FILM LIBRARY STORAGE ONLY CT SPINE Routine 04/02/2017 12:15 AM EDT Pain documented in this encounter Results * Film Library- Storage Only CT Spine (04/02/2017 12:15 AM EDT) Narrative EVELIN - 04/03/2017 12:12 PM EDT This exam is for storage only and is auto-finalizing. Donald Hatfield MD G FILM LIBRARY ORD ERABLES [place], [place] documented in this encounter Visit Diagnoses Diagnosis Pain Generalized pain documented in this encounter Care Teams Supervisory Clerk Relationship Specialty Start Date End Date Unknown None PCP - General 08/09/10 04/03/17 documented as of this encounter
--- OUTSIDE RECORDS SUMMARY | 2024-04-17 03:59 | XMS_ITS | Clinical Summary ---
Author Organization [facility] Address [facility] [place] [address] Care Team Providers Care Machine Pan Greaser Name Role Phone None Primary Care Provider Unavailabl e Allergies Active Allergy Reactions Criticality Noted Date Comments Aripiprazole Rash 04/03/2017 Codeine Nausea And Vomiting 04/03/2017 Medications Medication Sig Dispensed Refills Start Date End Date Status acetaminophen (TYLENOL) 325 mg Tablet Take 650 mg by mouth every 4 hours as needed for Pain. Active aspirin 81 mg Tablet, Chewable Take 81 mg by mouth daily. Active buPROPion (WELLBUTRIN SR OR ZYBAN) 150 mg Tablet Sustained Release 12 hr Take 150 mg by mouth daily. Active carvedilol (COREG) 6.25 mg Tablet Take 6.25 mg by mouth 2 times daily (with meals). Active docusate sodium (COLACE) 100 mg Capsule Take 100 mg by mouth 3 times daily as needed for Constipation. Active DULoxetine (CYMBALTA) 60 mg Capsule, Delayed Release(E.C.) Take 60 mg by mouth daily. Active fentaNYL (DURAGESIC) 50 mcg/hr Patch [address] 1 patch onto the skin every 72 hours. Active lisinopril (PRINIVIL;ZESTRIL) 5 mg Tablet Take 5 mg by mouth daily. Active magnesium oxide (MAG-OX) 400 mg Tablet Take 400 mg by mouth 2 times daily. Active omeprazole (PRILOSEC) 40 mg Capsule, Delayed Release(E.C.) Take 40 mg by mouth daily. Active polyethylene glycol (MIRALAX) 17 gram Powder in Packet Take 17 g by mouth daily. Active spironolactone (ALDACTONE) 25 mg Tablet Take 12.5 mg by mouth daily. Active Social History Tobacco Use Types Packs/Day Years Used Date Smoking Tobacco: Never Assessed Sex and Gender Information Value Date Recorded Sex Assigned at Not on file Gender Identity Not on file Sexual Orientation Not on file Last Filed Vital Signs Vital Sign Reading Time Taken Comments Blood Pressure 126/71 04/04/2017 2:41 PM EDT Pulse 66 04/04/2017 2:15 PM EDT Temperature 36.1 ??C (97 ??F) 04/04/2017 2:25 PM EDT Respiratory Rate 16 04/04/2017 2:41 PM EDT Oxygen Saturation 99% 04/04/2017 2:41 PM EDT Inhaled Oxygen Concentration - - Weight - - Height - - Body Mass Index - - Plan of Treatment Health Maintenance Due Date Last Done Comments CT Colonography 1949 Colonoscopy 1949 Colorectal Cancer Screening 1949 FIT DNA 1949 FIT 1949 Sigmoidoscopy (10 year) with FIT yearly 1949 Sigmoidoscopy 1949 Hepatitis C Screening 1967 Tdap adult 1968 Tetanus vaccine 1968 Breast Cancer Share Decision Needed 1989 Breast Cancer screening 1989 Zoster vaccine (1 of 2) 1999 Advance Directive 2004 Bone Density Scan 2014 Pneumoccocal Vaccine: 65+ (1 of 1 - PCV) 2014 Covid-19 Vaccine (1 - 2022- season) 2023 Influenza (Flu) vaccine (1 o f 1 - Influenza standard series) 05/18/2024 Advance Directives * Full Code (Latest Code Status on File) Date Activated Date Inactivated Comments 04/04/2017 12:23 PM 04/04/2017 3:01 PM Question Answer Comments Does patient have capacity to make decision: Yes Care Teams Machine Pan Greaser Relationship Specialty Start Date End Date None None PCP - General 04/04/17
--- OUTSIDE RECORDS SUMMARY | 2024-04-17 03:59 | XMS_ITS | Encounter Summary ---
Author Organization [facility] [place] [address] Care Team Providers Care Head Of Drama Name Role Phone Unknown Primary Care Provider Unavailabl e Encounter Details Date Type Department Care Team (Latest Contact Info) Description 04/02/2017 - 04/02/2017 12:14 AM EDT Hospital Encounter Radiology Library at [facility] [place] [address] Donald Hatfield MD [facility] [place] [address] Pain Discharge Disposition: Home Social History Tobacco [...] Diagnosis Comments FILM LIBRARY STORAGE ONLY CT CHEST ABDOMEN PELVIS Routine 04/02/2017 12:00 AM EDT Pain documented in this encounter Results * Film Library- Storage Only CT Chest Abdomen Pelvis (04/02/2017 12:00 AM EDT) Narrative [facility] - 04/03/2017 12:09 PM EDT This exam is for storage only and is auto-finalizing. Donald Hatfield MD IMG FILM LIBRARY ORD ERABLES [place], [place] documented in this encounter Visit Diagnoses Diagnosis Pain Generalized pain documented in this encounter Care Teams Head Of Drama Relationship Specialty Start Date End Date Unknown None PCP - General 08/09/10 04/03/17 documented as of this encounter
--- OUTSIDE RECORDS SUMMARY | 2024-04-17 03:59 | XMS_ITS | Encounter Summary ---
Author Organization [facility] Address [facility] [place] [address] Care Team Providers Care Ict Educator Name Role Phone Unknown Primary Care Provider Unavailabl e Encounter Details Date Type Department Care Team (Late st Contact Info) Description 11/03/2016 Telephone Neurosurgery at [facility] [place] [place] [address] Burt Bone MD [facility] [place] [address] Social History Tobacco Use Types Packs/Day Years Used Date Smoking Tobacco: Never Assessed Sex and Gender Information Value Date Recorded Sex Assigned at Not on file Gender Identity Not on file Sexual Orientation Not on file documented as of this encounter Miscellaneous Notes * Telephone Encounter - Burt Bone MD - 11/03/2016 7:18 PM EST 7:00pm 11/03/16 Patient had a fall from standing 1 week ago. Since then she has had lower back pain. She denies anyweakness, numbness, tingling, bowel or bladder dysfunction. I spoke with physician at OSH (Dr. Gay) who confirms that she is full strength and does not have any radicular symptoms. She does have some point tenderness in her lower back. CT revealed compression fractures of unknown chronicity at T5/9/12 and L2. She has been mobilizing at home for the past week and presented to the OSH On my examination of the CT I agree with the read and do not see any significant retropulsion of involvement of the posterior elements. Her mobilization suggests stability with these compression deformities. She has a history of osteoporosis and, if the back pain continues, she may be a candidate for vertebroplasty. I spoke with the outside physician and he is comfortable with her going home and f ollowing up closely in clinic. I specifically asked if she needs pain control in an impatient setting and the physician stated she was resting comfortably. I recommended she be fitted with a TLSO brace for comfort, We discussed warning signs of her pain worsening, neurologic symptoms such as numbnes s/tingling/weakness/bowel or bladder incontinence. She will return to the ER with any questions or concerns. documented in this encounter Plan of Treatment Not on file documented as of this encounter Visit Diagnoses Not on filedocumented in this encounter Care Teams Ict Educator Relationship Specialty Start Date End Date Unknown None PCP - General 08/09/10 04/03/17 documented as of this encounter
--- OUTSIDE RECORDS SUMMARY | 2024-04-17 03:59 | XMS_ITS | Encounter Summary ---
Author Organization [place] [id number] Care Team Providers Care Blasting Clay Miner Name Role Phone None Primary Care Provider Unavailabl e Reason for Referral * Diagnostic Test (Routine) - Closed Specialty Diagnoses / Procedures Referred By Contac t Referred To Contact Radiology Diagnoses Wedge fracture of thoracic vertebra, unspecified thoracic vertebral level, initial encounter Procedures IR Vertebroplasty Khalif Tyson MD [facility] [place] [address] [place] [address] Referral ID Status Reason Start Date Expiration Date V isits Requested Visits Authorized Closed Specialty Service Requested 04/03/2017 04/03/2018 1 1 Reason for Visit * Diagnostic Test (Routine) - Closed Specialty Diagnoses / Procedures Referred By Contac t Referred To Contact Radiology Diagnoses Wedge fracture of thoracic vertebra, unspecified thoracic vertebral level, initial encounter Procedures IR Vertebroplasty Khalif Tyson MD [facility] [place] [place] [address] [place] [address] Referral ID Status Reason Start Date Expiration Date V isits Requested Visits Authorized Closed Specialty Service Requested 04/03/2017 04/03/2018 1 1 Encounter Details Date Type Department Care Team (Latest Contact Info) Description 04/04/2017 11:48 AM EDT - 04/04/2017 11:59 PM EDT Hospital [place] [address] Donald Hatfield MD [facility] [place] [address] Mayra Castanon RN Wedge fracture of thoracic vertebra, unspecified thoracic vertebral level, initial encounter Discharge Disposition: Home Social History Tobacco Use Types Packs/Day Years Used Date Smoking Tobacco: Never Assessed Sex and Gender Information Value Date Recorded Sex Assigned at Not on file Gender Identity Not on file Sexual Orientation Not on file documented as of this encounter Last Filed Vital Signs Vital Sign Reading Time Taken Comments Blood Pressure 126/71 04/04/2017 2:41 PM EDT Pulse 66 04/04/2017 2:15 PM EDT Temperature 36.1 ??C (97 ??F) 04/04/2017 2:25 PM EDT Respiratory Rate 16 04/04/2017 2:41 PM EDT Oxygen Saturation 99% 04/04/2017 2:41 PM EDT Inhaled Oxygen Concentration - - Weight - - Height - - Body Mass Index - - documented in this encounter Discharge Instructions * Discharge Instructions* Huy Flores RN - 04/04/2017 2:[address] [facility] Discharge Instructions for Vertebroplasty Your vertebroplasty was performed at L- 5,L -7 level(s) Activity Level: Rest for the remainder of the day today. Do not lift anything heavier than a gallonof milk for at least three days, then gradually increase your activity as tolerated. Bandage: A small bandage is present at the puncture site on your back and should remain in place for 24 hours, then can be removed. You may shower while the dressing is in place. No swimming, tub baths or whirlpools for one week. When to call your healthcare provider: If you see any redness, swelling or drainage around or from the puncture sites If you develop shaking chills If you develop a fever equal to or greater than 101 degrees fahrenheit If you develop pain at the insertion site(s) If your original back pain worsens, if you develop back pain in a new area or if you develop weakness or numbness in one or both legs When to call the Interventional Radiology Department: Please call with any questions or concerns. If it is during regular office hours, please call [phone]. If it is after regular office hours, or on weekends or holidays, please call [phone] and ask to speak to the Animal Science Instructor personnel officer for Interventional Radiology. XXX You have received medication during your procedure to help lesson anxiety and keep you comfortable. We recommend that you do not drive, operate equipment, sign any important documents, or smoke unattended for 24 hours following your procedure. You may have received medication before and/or during your procedure, which affects judgement and reaction time. Be careful on stairs, as you may be unsteady on your feet. You may eat a regular diet as tolerated IV site -- slight redness, or tenderness is normal, you can use a warm compress. If tenderness and redness increases or foul drainage occurs, please contact your M. D. We will call you in a couple of weeks to check on your progress. Revised 10/01/15 documented in this encounter Medications at Time of Discharge Medication Sig Dispensed Refills Start Date End Date acetaminophen (TYLENOL) 325 mg Tablet Take 650 mg by mouth every 4 hours as needed for Pain. aspirin 81 mg Tablet, Chewable Take 81 mg by mouth daily. buPROPion (WELLBUTRIN SR OR ZYBAN) 150 mg Tablet Sustained Release 12 hr Take 150 mg by mouth daily. carvedilol (COREG) 6.25 mg Tablet Take 6.25 mg by mouth 2 times daily (with meals). docusate sodium (COLACE) 100 mg Capsule Take 100 mg by mouth 3 times daily as needed for Constipation. DULoxetine (CYMBALTA) 60 mg Capsule, Delayed Release(E.C.) Take 60 mg by mouth daily. fentaNYL (DURAGESIC) 50 mcg/hr Patch [address] 1 patch onto the skin every 72 hours. lisinopril (PRINIVIL;ZESTRIL) 5 mg Tablet Take 5 mg by mouth daily. magnesium oxide (MAG-OX) 400 mg Tablet Take 400 mg by mouth 2 times daily. omeprazole (PRILOSEC) 40 mg Capsule, Delayed Release(E.C.) Take 40 mg by mouth daily. polyethylene glycol (MIRALAX) 17 gram Powder in Packet Take 17 g by mouth daily. spironolactone (ALDACTONE) 25 mg Tablet Take 12.5 mg by mouth daily. documented as of this encounter Progress Notes * Anum Silvestre RN - 04/04/2017 11:59 PM EDT Interventional and Vascular Radiology Post-Procedure Call Name: Flaquito Linda Age: 66 y.o. Sex; Female Date of : 1950 (home) No relevant phone numbers on file. PCP None None Date/Time of call: April 05, 2017/9:17 AM Procedure: vertebroplasty Procedural Provider: addie Lion Contact with patient or if not, with whom? No, wrong number Message left on answering machine? (yes/no) Provider notified via phone or email if unable to contact pt: (yes/no) Are you having pain related to your procedure now? Are you having any swelling or bleeding from the site? Are there any improvement in your symptoms? Are you having any other problems related to your procedure? Comments: Did you understand the discharge instructions given and do you have any questions? Comments: Do you have any comments about your Nurse or Provider or the care you received? Nurse Comments: * Sol Gongora RN - 04/04/2017 12:56 PM EDT To procedure room 4 @ 1240 via stretcher. Onto table prone All monitors, O2, safety strap in place.Yes Med's per protocol. Yes * Trav Lion MD - 04/04/2017 12:16 PM EDT PRE-SEDATION ASSESSMENT / FOCUSED H&P Addendum: The patient's history and physical exam have been reviewed and completed. There has been no interval change from that of the pre-operative history and physical exam done within the last 30 days. Risks (including hemorrhage, infection, allergic reaction, off target cement, spinal cord or nerve injury, respiratory depression), and benefits discussed and patient consented to the procedure. I have reviewed with the patient, their prior experience with sedation. The patient has been NPO per protocol. I have reviewed the sedation plan for this patient???s case and concur that Fentanyl and Versed areappropriate choices for sedation and will be provided per the protocoled order set for this case Physical Exam Heart: RRR Lungs: clear Spine: Point tenderness to percussion over the mid thoracic spine between the scapular tips ASA Classification: ASA 2 - Patient with mild systemic disease with no functional limitations Mallampati Classification: II (soft palate, uvula, fauces visible) * Mayra Castanon RN - 04/03/2017 4:03 PM EDT ANGIO NURSING DATABASE Name: FLAQUITO LINDA Date of : 1950 AGE 66 y.o. Address: [facility] (home) Mobile: No relevant phone numbers on file. Referring Provider: Khalif Tyson REASON FOR VISIT: Where will study be performed? [facility] Is the patient on anticoagulant / anitplatelet therapy ? Other: see comments field unknown Reason for exam and clinical history: T5 and T7 vertebral fractures Exam/Procedure requested: Vertebroplasty at T5 and T7 Does patient require sedation? None Anticoagulant/antiplatelet/herbal med. stopped on per MD order. Allergies not on file Pertinent PMH: There is no problem list on file for this patient. Pertinent PSH: No past surgical history on file. Date/Procedure Med's given/comments 04/04/17 Vertebroplasty T5 and T7 Ancef 2 gm iv., Fentanyl 125 mcg iv., Versed 3.5 mg iv. Pressure dropped for short period after meds,responded well to iv fluid, Dr. Real aware Laboratory Results: Medications: Prior to Admission medications Not on File documented in this encounter Plan of Treatment Not on file documented as of this encounter Procedures Procedure Name Priority Date/Time Associated Diagnosis Comments IR VERTEBROPLASTY Routine 04/04/2017 2:2 6 PM EDT Wedge fracture of thoracic vertebra, unspecified thoracic vertebral level, initial encounter documented in this encounter Results * IR Vertebroplasty (04/04/2017 [...] anesthesia. Under careful fluoroscopic guidance, bipedicular 13-gauge [place] needles was advanced into the anterior third [...] level, initial encounter documented in this encounter Administered Medications Inactive Administered Medications - up to 3 most recent administrations Medication Order MAR Action Action Date Dose Rate Site ceFAZolin (ANCEF) 1g in dextrose 5% 50mL 1,000 mg (1 g), Intravenous, ONCE, 1 dose, On Sun04/04/17 at 1245, Administer over 30 Minutes, Angio/IR (Day of Procedure), Indication for (Active or Suspected): Prophylaxis Given 04/04/2017 12:45 PM EDT 1,000 mg 100 mL/hr fentaNYL 50 mcg/mL multi-dose injection 25-50 mcg, Intravenous, EVERY 5 MIN PRN, Starting on Sun04/04/17 at 1217, Until Sun04/04/17 at 1413, Pain, per unit protocol, - Start dose 50 mcg (reduce dose to 25 mcg if history of sedation sensitivity). - Titration dose 25-50 mcg IV, (based on patient response) every 3 minutes PRN, to maintain procedural pain less than 2 per pain Scale. Maximum dose: 50 mcg/dose, 250 mcg/hour For use in Interventional Radiology (IR) only for procedural sedation with direct provider supervision and verbal order., Angio/IR (Intra-Procedure), Routine Given 04/04/2017 1:15 PM EDT 25 mcg Given 04/04/2017 1:10 PM EDT 25 mcg Given 04/04/2017 1:05 PM EDT 25 mcg lidocaine (XYLOCAINE) 10 mg/mL (1 %) injection 10 mg 10 mg, Subcutaneous, ONCE, 1 dose, On Sun04/04/17 at 1245, For use in Interventional Radiology (IR) only for procedure with direct provider supervision and verbal order., Angio/IR (Intra-Procedure), Routine Given 04/04/2017 12:45 PM EDT 10 mg midazolam (PF) (VERSED) 1 mg/mL multi-dose injection 0.5-1 mg 0.5-1 mg, Intravenous, EVERY 3 MIN PRN, Starting on Sun04/04/17 at 1217, Until Sun04/04/17 at 1413, Sleep, - Start dose; 1 mg (Reduce dose to 0.5 mg if history of sedation sensitivity). - Titration dose: 0.5 mg - 1 mg (based on patient response) every 3 minutes PRN to obtain RASS score of -3. Maximum dose: 1 mg per dose, 5 mg/hour. For use in Interventional Radiology (IR) only for procedural sedation with direct provider supervision and verbal order., Angio/IR (Intra-Procedure), Routine Given 04/04/2017 1:15 PM EDT 0.5 mg Given 04/04/2017 1:10 PM EDT 0.5 mg Given 04/04/2017 1:05 PM EDT 0.5 mg sodium chloride 0.9 % flush 5 mL 5 mL, Intravenous, EVERY 12 HOURS, First dose on Sun04/04/17 at 1245, Until Discontinued, Day of Surgery (Day of Procedure), Routine Given 04/04/2017 12:45 PM EDT 5 mLs documented in this encounter Care Teams Blasting Clay Miner Relationship Specialty Start Date End Date None None PCP - General 04/04/17 documented as of this encounter
[2024-04-17 14:00] LABS: Abs Immature Grans 0.01 10^3/uL (0.0-0.06); Absolute Basophil Count 0.08 10^3/uL (0.0-0.2); Absolute Eosinophil Count 0.27 10^3/uL (0.0-0.7); Absolute Lymphocyte Count 1.88 10^3/uL (1.2-3.4); Absolute Neutrophil Count 2.72 10^3/uL (1.2-6.7); Basophils % 1.5 %; Eosinophils % 4.9 %; HCT 31.5 % (36.0-46.0); HGB 10.4 g/dL (11.2-15.7); Immature Grans % 0.2 %; Lymphocytes % 34.4 %; MCH 27.2 pg (27.0-33.0); MCV 82 fL (80-95); MPV 12.3 fL (8.0-11.0); Monocytes % 9.2 %; Neutrophils % 49.8 %; Platelet Count 242 10^3/uL (130-400); RBC 3.83 10^6/uL (3.93-5.22); RDW 14.9 % (11.7-14.6); WBC 5.46 10^3/uL (4.4-10.8)
[2024-04-17 14:45] LABS: ALT 11 U/L (14-59); AST 16 U/L (15-37); Albumin 3.3 g/dL (3.4-5.0); Alkaline Phosphatase 273 U/L (46-116); Anion Gap 6.7 mmol/L (3-11); BUN 26 mg/dL (7-18); Bilirubin, Total 0.41 mg/dL (0.2-1.0); CO2 31.3 mmol/L (21.0-32.0); CREATININE 2.5 mg/dL (0.55-1.02); Calcium 8.8 mg/dL (8.5-10.1); Chloride 100 mmol/L (98-107); Estimated GFR 19.69 (mL/min/1.73m2); Glucose 74 mg/dL (74-106); NT-proBNP 3129 pg/mL (<300); Potassium 4.5 mmol/L (3.5-5.1); Sodium 138 mmol/L (136-145); Total Protein 7.5 g/dL (6.4-8.2)
== END 2024-04-17 03:58 | disposition home or self-care (01) ==
LOC: LBO 03:57
PROVIDERS: PCP Physician Assistant Medical; Visit Provider Physician Assistant Medical
DX: I50.9 Heart failure, unspecified (principal); N18.9 Chronic kidney disease, unspecified
CPT/HCPCS: 36415; 80053; 83880; 85025

== ENCOUNTER 2024-05-21 10:18 | Outpatient (CLI) | payer MEDICARE, MEDICAID, SELFPAY | END 2024-05-21 10:19 | disposition home or self-care (01) | LOC: DI.CARD 10:19 | PROVIDERS: PCP Physician Assistant Medical; Visit Provider Internal Medicine Cardiovascular Disease | CPT/HCPCS: 93010 ==

== ENCOUNTER 2024-06-23 14:46 | Outpatient (REF) | payer MEDICARE, MEDICAID, SELFPAY ==
--- OUTSIDE RECORDS SUMMARY | 2024-06-23 14:48 | XMS_ITS | Clinical Summary ---
Author Organization [facility] Address [facility] [place] [address] Care Team Providers Care Director Of Income Tax Name Role Phone None Primary Care Provider [...] 1950 Sigmoidoscopy 1950 Hepatitis C Screening 1967 Tetanus/Diphtheria/Pertussis Vaccines (1 - Tdap) 09/12 Breast Cancer Share Decision Needed 1989 Breast Cancer screening 1989 Zoster vaccine (1 of 2) 1999 Advance Directive 2004 Bone Density Scan 2014 Pneumoccocal Vaccine: 65+ (1 of 1 - PCV) 2014 Covid-19 Vaccine (1 - 2022- season) 2024 Influenza (Flu) vaccine (1 o f 1 - Influenza standard series) 05/18/2024 Advance Directives * Full Code (Latest Code Status on File) Date Activated Date Inactivated Comments 04/04/2017 12:23 PM 04/04/2017 3:01 PM Question Answer Comments Does patient have capacity to make decision: Yes Care Teams Director Of Income Tax Relationship Specialty Start Date End Date None None PCP - General 04/04/17
--- OUTSIDE RECORDS SUMMARY | 2024-06-23 14:49 | XMS_ITS | Encounter Summary ---
Author Organization [facility]ly [facility] [place] [address] Care Team Providers Care Turner Machine Name Role Phone Unknown Primary Care Provider Unavailabl e Encounter Details Date Type Department Care Team (Latest Contact Info) Description 04/02/2017 - 04/02/2017 12:14 AM EDT Hospital Encounter Radiology Library at [facility] [place] [address] Donald Hatfield MD [facility] [place] [address] Pain Discharge Disposition: Home Social History Tobacco [...] Abdomen Pelvis (04/02/2017 12:00 AM EDT) Narrative RAD - 04/03/2017 12:09 PM EDT This exam is for storage only and is auto-finalizing. Donald Hatfield MD IMG FILM LIBRARY ORD ERABLES [place], [place] documented in this encounter Visit Diagnoses Diagnosis Pain Generalized pain documented in this encounter Care Teams Turner Machine Relationship Specialty Start Date End Date Unknown None PCP - General 08/09/10 04/03/17 documented as of this encounter
--- OUTSIDE RECORDS SUMMARY | 2024-06-23 14:49 | XMS_ITS | Encounter Summary ---
Author Organization [facility] Address [facility] [place] [address] Care Team Providers Care Machine Lacer Name Role Phone Unknown Primary Care Provider Unavailabl e Encounter Details Date Type Department Care Team (Late st Contact Info) Description 11/03/2016 Telephone Neurosurgery at [facility] [place] [address] Burt Bone MD [facility] [place] [address] Social History Tobacco Use Types Packs/Day Years [...] on filedocumented in this encounter Care Teams Machine Lacer Relationship Specialty Start Date End Date Unknown None PCP - General 08/09/10 04/03/17 documented as of this encounter
--- OUTSIDE RECORDS SUMMARY | 2024-06-23 14:49 | XMS_ITS | Encounter Summary ---
Author Organization [facility] [place] [address] Care Team Providers Care Peanut Vendor Name Role Phone Unknown Primary Care Provider Unavailabl e Encounter Details Date Type Department Care Team (Latest Contact Info) Description 11/03/2016 12:05 AM EST - 11/03/2016 11:59 PM EST Hospital Encounter Radiology Library at [facility] [place] [address] Oj Cosme MD [facility] [place] [address] Pain Discharge Disposition: Home Social History Tobacco [...] Cosme MD IMG FILM LIBRARY ORD ERABLES [place], [place] documented in this encounter Visit Diagnoses Diagnosis Pain Generalized pain documented in this encounter Care Teams Peanut Vendor Relationship Specialty Start Date End Date Unknown None PCP - General 08/09/10 04/03/17 documented as of this encounter
--- OUTSIDE RECORDS SUMMARY | 2024-06-23 14:49 | XMS_ITS | Encounter Summary ---
Author Organization [facility] [place] [address] Care Team Providers Care Mat Maker Name Role Phone Unknown Primary Care Provider Unavailabl e Encounter Details Date Type Department Care Team (Latest Contact Info) Description 11/03/2016 - 11/03/2016 12:04 AM EST Hospital Encounter Radiology Library at [facility] [place] [address] Oj Cosme MD [facility] [place] [address] Pain Discharge Disposition: Home Social History Tobacco [...] Cosme MD IMG FILM LIBRARY ORD ERABLES [place], [place] documented in this encounter Visit Diagnoses Diagnosis Pain Generalized pain documented in this encounter Care Teams Mat Maker Relationship Specialty Start Date End Date Unknown None PCP - General 08/09/10 04/03/17 documented as of this encounter
--- OUTSIDE RECORDS SUMMARY | 2024-06-23 14:49 | XMS_ITS | Encounter Summary ---
[place] [address] Care Team Providers Care Disc Pad Plate Filler Name Role Phone None Primary Care Provider Unavailabl e Encounter Details Date Type Department Care Team (Late st Contact Info) Description 11/13/2019 External Results Cardiology at [address] [address] Social History Tobacco Use Types Packs/Day Years [...] on filedocumented in this encounter Care Teams Disc Pad Plate Filler Relationship Specialty Start Date End Date None None PCP - General 04/04/17 documented as of this encounter
--- OUTSIDE RECORDS SUMMARY | 2024-06-23 14:49 | XMS_ITS | Encounter Summary ---
Author Organization [facility] [place] [address] Care Team Providers Care Lubrication Technician Name Role Phone Unknown Primary Care Provider Unavailabl e Encounter Details Date Type Department Care Team (Latest Contact Info) Description 04/02/2017 12:15 AM EDT - 04/02/2017 11:59 PM EDT Hospital Encounter Radiology Library at [facility] [place] [address] Donald Hatfield MD [facility] [place] [address] Pain Discharge Disposition: Home Social History Tobacco [...] CT Spine (04/02/2017 12:15 AM EDT) Narrative RAD - 04/03/2017 12:12 PM EDT This exam is for storage only and is auto-finalizing. Donald Hatfield MD [facility] [place] documented in this encounter Visit Diagnoses Diagnosis Pain Generalized pain documented in this encounter Care Teams Lubrication Technician Relationship Specialty Start Date End Date Unknown None PCP - General 08/09/10 04/03/17 documented as of this encounter
--- OUTSIDE RECORDS SUMMARY | 2024-06-23 14:49 | XMS_ITS | Encounter Summary ---
Author Organization [facility]ly [facility] [place] [address] Care Team Providers Care Customer Solutions Specialist Name Role Phone Unknown Primary Care Provider Unavailabl e Reason for Referral * Diagnostic Test (Routine) - Closed Specialty Diagnoses / Procedures Referred By Contac t Referred To Contact Radiology Diagnoses Wedge fracture of thoracic vertebra, unspecified thoracic vertebral level, initial encounter Procedures IR Vertebroplasty Harriett Tyson MD [facility] [place] [address] [facility] [place] [address] Referral ID Status Reason Start Date Expiration Date V isits Requested Visits Authorized [id number] Closed Specialty Service Requested 04/03/2017 04/03/2018 1 1 Encounter Details Date Type Department Care Team (Late st Contact Info) Description 04/03/2017 [place] [address] Harriett Tyson MD [facility] [place] [address] Wedge fracture of thoracic vertebra, unspecified thoracic [...] anesthesia. Under careful fluoroscopic guidance, bipedicular 13-gauge [place] needles was advanced into the anterior third [...] encounter documented in this encounter Care Teams Customer Solutions Specialist Relationship Specialty Start Date End Date Unknown None PCP - General 08/09/10 04/03/17 documented as of this encounter
--- OUTSIDE RECORDS SUMMARY | 2024-06-23 14:49 | XMS_ITS | Encounter Summary ---
Author Organization [place] [id number] Care Team Providers Care Gear Roller Name Role Phone None Primary Care Provider Unavailabl e Reason for Referral * Diagnostic Test (Routine) - Closed Specialty Diagnoses / Procedures Referred By Contac t Referred To Contact Radiology Diagnoses Wedge fracture of thoracic vertebra, unspecified thoracic vertebral level, initial encounter Procedures IR Vertebroplasty Khalif Tyson MD [facility] [place] [address] [place] [address] Referral ID Status Reason Start Date Expiration Date V isits Requested Visits Authorized Closed Specialty Service Requested 04/03/2017 04/03/2018 1 1 Reason for Visit * Diagnostic Test (Routine) - Closed Specialty Diagnoses / Procedures Referred By Contac t Referred To Contact Radiology Diagnoses Wedge fracture of thoracic vertebra, unspecified thoracic vertebral level, initial encounter Procedures IR Vertebroplasty Khalif Tyson MD [facility] [place] [address] [place] [address] Referral ID Status Reason Start Date Expiration Date V isits Requested Visits Authorized Closed Specialty Service Requested 04/03/2017 04/03/2018 1 1 Encounter Details Date Type Department Care Team (Latest Contact Info) Description 04/04/2017 11:48 AM EDT - 04/04/2017 11:59 PM EDT Hospital [place] [address] Donald Hatfield MD [facility] [place] [address] Mayra Castanon RN Wedge fracture of thoracic [...] Flores RN - 04/04/2017 2:[address] [facility] Discharge Instructions for Vertebroplasty Your vertebroplasty [...] is during regular office hours, please call [phone]. If it is after regular office hours, or on weekends or holidays, please call [phone] and ask to speak to the [employer] vice president for instruction for Interventional Radiology. XXX You have received [...] of : 1950 AGE 66 y.o. Address: [facility] (home) Mobile: No relevant phone numbers on [...] anesthesia. Under careful fluoroscopic guidance, bipedicular 13-gauge [place] needles was advanced into the anterior third [...] mLs documented in this encounter Care Teams Gear Roller Relationship Specialty Start Date End Date None None PCP - General 04/04/17 documented as of this encounter
[2024-06-23 17:30] LABS: COMMENT (LAB VIEW ONLY) < 13.00 mg/dL
== END 2024-06-23 14:47 | disposition home or self-care (01) ==
LOC: NCHCN 14:46
PROVIDERS: PCP Physician Assistant Medical; Visit Provider Physician Assistant Medical
DX: N18.9 Chronic kidney disease, unspecified (principal)
CPT/HCPCS: 82043; 82570

== ENCOUNTER 2024-06-27 00:30 | Outpatient (CLI) | payer MEDICARE, MEDICAID, SELFPAY ==
--- NOTE | 2024-06-27 | DI.RAD_ITS ---
Exam(s) XR LUMBAR SPINE COMPLETE EXAM: XR LUMBAR SPINE COMPLETE CLINICAL HISTORY: ACUTE LOW BACK PAIN, M54.50. TECHNIQUE: 2D digital imaging was performed. Five views. COMPARISON: CR LUMBAR SPINE COMPLETE from 02/18/[address] LUMBAR SPINE WO from 03/30/[address] CHEST WO from 11/23/2022 FINDINGS: BONES: The bones appear osteoporotic. Stable moderate compression fractures of L1-L2. Stable mode rate to severe compression fractures of T12 and T11. facet hypertrophy present greatest at L4-5 and L5-S1. No spondylolysis. Slight spondylolisthesis at L4-5 secondary to facet degenerative changes. Spondylolisthesis. Moderate levoscoliosis with apex at L1-2. Hardware noted in left proximal femur . DISKS: Mild L4-5 disc space narrowing. The remaining intervertebral disc spaces are maintained. SOFT TISSUE: Normal. IMPRESSION: Stable compression fractures. Degenerative changes and scoliosis. DATA REPOSITORY: RADIATION DOSE DELIVERED:
--- OUTSIDE RECORDS SUMMARY | 2024-06-27 00:39 | XMS_ITS | Clinical Summary ---
Author Organization [facility] Address [facility] [place] [address] Care Team Providers Care Ledger Poster Name Role Phone None Primary Care Provider [...] f 1 - Influenza standard series) 05/18/2024 Insurance Payer Benefit Plan / Group Subscriber ID Effective Dates Phone Address Type MEDICARE MEDICARE PART A & B [id number] 2011-Bobo nt [address] [place] [id number] [place] [id number] 2016-Kathya t [address] [place] [address] Advance Directives * Full Code (Latest Code Status on File) Date Activated Date Inactivated Comments 04/04/2017 12:23 PM 04/04/2017 3:01 PM Question Answer Comments Does patient have capacity to make decision: Yes Care Teams Ledger Poster Relationship Specialty Start Date End Date None None PCP - General 04/04/17
--- OUTSIDE RECORDS SUMMARY | 2024-06-27 00:39 | XMS_ITS | Encounter Summary ---
[place] [address] Care Team Providers Care Cow Rider Name Role Phone None Primary Care Provider Unavailabl e Encounter Details Date Type Department Care Team (Late st Contact Info) Description 11/13/2019 External Results Cardiology at [address] [address] Social History Tobacco Use Types Packs/Day Years [...] on filedocumented in this encounter Care Teams Cow Rider Relationship Specialty Start Date End Date None None PCP - General 04/04/17 documented as of this encounter
--- OUTSIDE RECORDS SUMMARY | 2024-06-27 00:39 | XMS_ITS | Encounter Summary ---
Author Organization [place] [id number] Care Team Providers Care Marketing Traffic Manager Name Role Phone None Primary Care Provider Unavailabl e Reason for Referral * Diagnostic Test (Routine) - Closed Specialty Diagnoses / Procedures Referred By Contac t Referred To Contact Radiology Diagnoses Wedge fracture of thoracic vertebra, unspecified thoracic vertebral level, initial encounter Procedures IR Vertebroplasty Khalif Tyson MD [facility] [place] [address] [place] [address] Referral ID Status Reason Start Date Expiration Date V isits Requested Visits Authorized Closed Specialty Service Requested 04/03/2017 04/03/2018 1 1 Reason for Visit * Diagnostic Test (Routine) - Closed Specialty Diagnoses / Procedures Referred By Contac t Referred To Contact Radiology Diagnoses Wedge fracture of thoracic vertebra, unspecified thoracic vertebral level, initial encounter Procedures IR Vertebroplasty Khalif Tyson MD [facility] [place] [place] [address] [place] [address] Referral ID Status Reason Start Date Expiration Date V isits Requested Visits Authorized Closed Specialty Service Requested 04/03/2017 04/03/2018 1 1 Encounter Details Date Type Department Care Team (Latest Contact Info) Description 04/04/2017 11:48 AM EDT - 04/04/2017 11:59 PM EDT Hospital [place] [address] Donald Hatfield MD [facility] [place] [place] [address] Mayra Castanon RN Wedge fracture of thoracic [...] Flores RN - 04/04/2017 2:34 PM EDT [facility] Discharge Instructions for Vertebroplasty Your vertebroplasty [...] is during regular office hours, please call [phone]. If it is after regular office hours, or on weekends or holidays, please call [phone] and ask to speak to the [employer] hotel operation manager for Interventional Radiology. XXX You have received [...] of : 1950 AGE 66 y.o. Address: [facility] (home) Mobile: No relevant phone numbers [...] mLs documented in this encounter Care Teams Marketing Traffic Manager Relationship Specialty Start Date End Date None None PCP - General 04/04/17 documented as of this encounter
--- OUTSIDE RECORDS SUMMARY | 2024-06-27 00:40 | XMS_ITS | Encounter Summary ---
Author Organization [facility]ly [facility] [place] [address] Care Team Providers Care Treasury Management Sales Consultant Name Role Phone Unknown Primary Care Provider Unavailabl e Encounter Details Date Type Department Care Team (Latest Contact Info) Description 11/03/2016 12:05 AM EST - 11/03/2016 11:59 PM EST Hospital Encounter Radiology Library at [facility], [place] [address] Oj Cosme MD [facility] [place] [address] Pain Discharge Disposition: Home Social History Tobacco [...] Cosme MD IMG FILM LIBRARY ORD ERABLES [place], [place] documented in this encounter Visit Diagnoses Diagnosis Pain Generalized pain documented in this encounter Care Teams Treasury Management Sales Consultant Relationship Specialty Start Date End Date Unknown None PCP - General 08/09/10 04/03/17 documented as of this encounter
--- OUTSIDE RECORDS SUMMARY | 2024-06-27 00:40 | XMS_ITS | Encounter Summary ---
Author Organization Formerly [facility] Address [facility] [place] [address] Care Team Providers Care Insurance Verification Representative Name Role Phone Unknown Primary Care Provider Unavailabl e Encounter Details Date Type Department Care Team (Late st Contact Info) Description 11/03/2016 Telephone Neurosurgery at [facility] [place] [address] Burt Bone MD [facility] [place] [address] Social History Tobacco Use Types Packs/Day Years [...] on filedocumented in this encounter Care Teams Insurance Verification Representative Relationship Specialty Start Date End Date Unknown None PCP - General 08/09/10 04/03/17 documented as of this encounter
--- OUTSIDE RECORDS SUMMARY | 2024-06-27 00:40 | XMS_ITS | Encounter Summary ---
Author Organization Formerly [facility] [place] [address] Care Team Providers Care Market Developer Name Role Phone Unknown Primary Care Provider Unavailabl e Reason for Referral * Diagnostic Test (Routine) - Closed Specialty Diagnoses / Procedures Referred By Contac t Referred To Contact Radiology Diagnoses Wedge fracture of thoracic vertebra, unspecified thoracic vertebral level, initial encounter Procedures IR Vertebroplasty Harriett Tyson MD [facility] [place] [address] [facility] [place] [address] Referral ID Status Reason Start Date Expiration Date V isits Requested Visits Authorized [id number] Closed Specialty Service Requested 04/03/2017 04/03/2018 1 1 Encounter Details Date Type Department Care Team (Late st Contact Info) Description 04/03/2017 [place] [address] Harriett Tyson MD [facility] [place] [address] Wedge fracture of thoracic vertebra, unspecified thoracic [...] local anesthesia. Under careful fluoroscopicguidance, bipedicular 13-gauge [place] needles was advanced into the anterior thirdof [...] encounter documented in this encounter Care Teams Market Developer Relationship Specialty Start Date End Date Unknown None PCP - General 08/09/10 04/03/17 documented as of this encounter
--- OUTSIDE RECORDS SUMMARY | 2024-06-27 00:40 | XMS_ITS | Encounter Summary ---
Author Organization [facility] [place] [address] Care Team Providers Care Citrix Consultant Name Role Phone Unknown Primary Care Provider Unavailabl e Encounter Details Date Type Department Care Team (Latest Contact Info) Description 11/03/2016 - 11/03/2016 12:04 AM EST Hospital Encounter Radiology Library at [facility] [place] [address] Oj Cosme MD [facility] [place] [address] Pain Discharge Disposition: Home Social History Tobacco [...] Cosme MD IMG FILM LIBRARY ORD ERABLES [place], [place] documented in this encounter Visit Diagnoses Diagnosis Pain Generalized pain documented in this encounter Care Teams Citrix Consultant Relationship Specialty Start Date End Date Unknown None PCP - General 08/09/10 04/03/17 documented as of this encounter
--- OUTSIDE RECORDS SUMMARY | 2024-06-27 00:40 | XMS_ITS | Encounter Summary ---
Author Organization [facility] [place] [address] Care Team Providers Care Nondestructive Tester Name Role Phone Unknown Primary Care Provider Unavailabl e Encounter Details Date Type Department Care Team (Latest Contact Info) Description 04/02/2017 12:15 AM EDT - 04/02/2017 11:59 PM EDT Hospital Encounter Radiology Library at [facility] [place] [address] Donald Hatfield MD [facility] [place] [address] Pain Discharge Disposition: Home Social History Tobacco [...] Hatfield MD G FILM LIBRARY ORD ERABLES [facility] [place] documented in this encounter Visit Diagnoses Diagnosis Pain Generalized pain documented in this encounter Care Teams Nondestructive Tester Relationship Specialty Start Date End Date Unknown None PCP - General 08/09/10 04/03/17 documented as of this encounter
--- OUTSIDE RECORDS SUMMARY | 2024-06-27 00:40 | XMS_ITS | Encounter Summary ---
Author Organization [facility] [place] [address] Care Team Providers Care Production Graphic Designer Name Role Phone Unknown Primary Care Provider Unavailabl e Encounter Details Date Type Department Care Team (Latest Contact Info) Description 04/02/2017 - 04/02/2017 12:14 AM EDT Hospital Encounter Radiology Library at [facility] [place] [address] Donald Hatfield MD [facility] [place] [address] Pain Discharge Disposition: Home Social History Tobacco [...] Hatfield MD IMG FILM LIBRARY ORD ERABLES [place], [place] documented in this encounter Visit Diagnoses Diagnosis Pain Generalized pain documented in this encounter Care Teams Production Graphic Designer Relationship Specialty Start Date End Date Unknown None PCP - General 08/09/10 04/03/17 documented as of this encounter
== END 2024-06-27 00:50 ==
LOC: DI 00:30
PROVIDERS: PCP Physician Assistant Medical; Visit Provider Physician Assistant Medical
DX: S32.020D Wedge compression fracture of second lumbar vertebra, subsequent encounter for fracture with routine healing (principal); X58.XXXD Exposure to other specified factors, subsequent encounter
CPT/HCPCS: 72110

== ENCOUNTER 2024-08-26 01:00 | Outpatient (CLI) | payer MEDICARE, MEDICAID, SELFPAY ==
--- NOTE | 2024-08-26 10:09 | DI.RAD_ITS ---
Exam(s) XR HIP RT COMPLETE AP PELVIS EXAM: XR HIP RT COMPLETE AP PELVIS CLINICAL HISTORY: PAIN IN RT HIP JOINT, M25.551. TECHNIQUE: 2D digital imaging was performed. Two views COMPARISON: CR XR HIP LT COMPLETE AP PELVIS from 08/12/2019 FINDINGS: BONES: No acute fracture is present. No bony destructive lesion is seen. Stable alignment of hardware in the left proximal femur. JOINTS: No dislocation present. Mild narrowing of the right hip joint space. Mild spurring at the acetabulum and margin of the femoral head. Mild left acetabular spurring. Mild degenerative changes of the SI joints. SOFT TISSUE: Normal. IMPRESSION: No acute abnormality. [id number] degenerative changes of the right hip. DATA REPOSITORY: RADIATION DOSE DELIVERED:
== END 2024-08-26 01:20 ==
LOC: DI 01:00
PROVIDERS: PCP Physician Assistant Medical; Visit Provider Family Medicine
DX: M16.11 Unilateral primary osteoarthritis, right hip (principal)
CPT/HCPCS: 73502

== ENCOUNTER 2024-11-03 02:02 | Outpatient (CLI) | payer MEDICARE, MEDICAID, SELFPAY ==
[2024-11-03 13:04] LABS: Abs Immature Grans 0.03 10^3/uL (0.0-0.06); Absolute Basophil Count 0.05 10^3/uL (0.0-0.2); Absolute Eosinophil Count 0.17 10^3/uL (0.0-0.7); Absolute Lymphocyte Count 1.53 10^3/uL (1.2-3.4); Absolute Monocyte Count 0.43 10^3/uL (0.1-0.8); Absolute Neutrophil Count 3.81 10^3/uL (1.2-6.7); Basophils % 0.8 %; Eosinophils % 2.8 %; HCT 33.6 % (36.0-46.0); Immature Grans % 0.5 %; Lymphocytes % 25.4 %; MCH 26.3 pg (27.0-33.0); MCHC 32.7 % (32.0-36.0); MCV 80 fL (80-95); MPV 12.1 fL (8.0-11.0); Monocytes % 7.1 %; Neutrophils % 63.4 %; Platelet Count 235 10^3/uL (130-400); RBC 4.19 10^6/uL (3.93-5.22); RDW 16.8 % (11.7-14.6); RDW-SD 48.7 fL; WBC 6.02 10^3/uL (4.4-10.8)
[2024-11-03 13:35] LABS: Diff Comment Agrees w/ Instrument
[2024-11-03 13:36] LABS: RBC Morphology Normal
[2024-11-03 14:00] LABS: ALT 11 U/L (14-59); AST 22 U/L (15-37); Albumin 2.8 g/dL (3.4-5.0); Alkaline Phosphatase 261 U/L (46-116); Anion Gap 7.8 mmol/L (3-11); BUN 44 mg/dL (7-18); Bilirubin, Total 0.38 mg/dL (0.2-1.0); CO2 32.2 mmol/L (21.0-32.0); CREATININE 3.2 mg/dL (0.55-1.02); Chloride 99 mmol/L (98-107); Estimated GFR 14.55 (mL/min/1.73m2); Ferritin 45 ng/mL (8-252); Glucose 98 mg/dL (74-106); Magnesium 1.7 mg/dL (1.8-2.4); Potassium 4.1 mmol/L (3.5-5.1); Sodium 139 mmol/L (136-145); Total Protein 7.7 g/dL (6.4-8.2)
== END 2024-11-03 02:03 | disposition home or self-care (01) ==
LOC: LBO 02:03
PROVIDERS: PCP Physician Assistant Medical; Visit Provider Physician Assistant Medical
DX: G25.81 Restless legs syndrome (principal)
CPT/HCPCS: 36415; 80053; 82728; 83735; 85025

== ENCOUNTER → 2024-11-21 13:22 | Outpatient (BNVA) | payer MEDICARE, MEDICAID, SELFPAY | PROVIDERS: PCP Physician Assistant Medical; Visit Provider Internal Medicine Cardiovascular Disease | DX: I42.8 Other cardiomyopathies (principal); Z95.810 Presence of automatic (implantable) cardiac defibrillator | CPT/HCPCS: 99213 ==

== ENCOUNTER 2024-12-01 13:19 | Outpatient (REF) | payer MEDICARE, MEDICAID, SELFPAY ==
[2024-12-01 15:45] LABS: Anion Gap 4.8 mmol/L (3-11); BUN 35 mg/dL (7-18); CO2 32.2 mmol/L (21.0-32.0); CREATININE 2.2 mg/dL (0.55-1.02); Chloride 100 mmol/L (98-107); Estimated GFR 22.81 (mL/min/1.73m2); Glucose 79 mg/dL (74-106); Potassium 4.6 mmol/L (3.5-5.1); Sodium 137 mmol/L (136-145)
== END 2024-12-01 13:20 | disposition home or self-care (01) ==
LOC: NCHCN 13:19
PROVIDERS: PCP Physician Assistant Medical; Visit Provider Physician Assistant Medical
DX: N18.9 Chronic kidney disease, unspecified (principal)
CPT/HCPCS: 80048; 84550

== ENCOUNTER 2024-12-03 07:57 | Outpatient (CLI) | payer MEDICARE, MEDICAID, SELFPAY ==
--- NOTE | 2024-12-03 08:00 | RT.EKG_ITS ---
APPROVED REPORT Exam: Resting ECG Reason for Exam: tachycardia Patient Location: O HR:84 bpm ECG Measurements Heart Rate 84 AXIS CA 164 P -11 QRSd 106 QRS -46 QT 347 T 149 QTc 411 Conclusion Sinus rhythm...normal P axis, V-rate 50- 99 Multiform ventricular premature complexes...short R-R, variable morphology Low voltage, precordial leads...precordial leads <1.0mV Anteroseptal infarct, old...Q >40mS, V1-V2
== END 2024-12-03 07:58 | disposition home or self-care (01) ==
LOC: DI.CARD 08:06
PROVIDERS: PCP Physician Assistant Medical; Referring Provider Physician Assistant Medical; Visit Provider Student in an Organized Health Care Education/Training Program
DX: R00.0 Tachycardia, unspecified (principal); I42.0 Dilated cardiomyopathy
CPT/HCPCS: 93010

== ENCOUNTER → 2024-12-03 07:57 | Outpatient (BNVA) | payer MEDICARE, MEDICAID, SELFPAY | PROVIDERS: PCP Physician Assistant Medical; Referring Provider Physician Assistant Medical; Visit Provider Student in an Organized Health Care Education/Training Program | DX: I42.8 Other cardiomyopathies (principal); Z95.810 Presence of automatic (implantable) cardiac defibrillator | CPT/HCPCS: 93005; 93282 ==

== ENCOUNTER 2025-01-06 09:51 | Emergency (ER) | payer MEDICARE, MEDICAID, SELFPAY ==
[2025-01-06] VITALS (83 sets, daily range): BP systolic 89–124; BP diastolic 43–94; PULSE 66–103; RESP 12–26; TEMP 36.9; O2SAT 87–100
--- NOTE | 2025-01-06 10:00 | DI.RAD_ITS ---
Exam(s) XR HIP RT COMPLETE AP PELVIS EXAM: XR HIP RT COMPLETE AP PELVIS CLINICAL HISTORY: fall, shortening and rotation. TECHNIQUE: 2D digital imaging was performed of the right hip. Three images were obtained. AP pelvis and lateral right hip views were obtained. COMPARISON: CR XR HIP RT COMPLETE AP PELVIS from 08/26/2024 FINDINGS: BONES: There is an acute fracture through the neck of the right femur. There is superior displacemen t of the distal fracture with loss of the normal femoral neck angle. The femoral head is seated with in the acetabulum. On the lateral view, there is a displaced greater trochanteric component of the f racture. No bony destructive lesion is seen. JOINTS: No dislocation present. SOFT TISSUE: Normal. IMPRESSION: Comminuted displaced fracture involving the right femoral neck with extension into the greater trocha nter. It that DATA REPOSITORY: RADIATION DOSE DELIVERED:
--- NOTE | 2025-01-06 10:02 | ED.GENADUL_ITS ---
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, Chronic systolic CHF (congestive heart failure), Osteoporosis Primary Care Provider: Paula Vazquez ED Provider[facility] and New Rx's Prescriptions: No Action aspirin 81 mg tablet,chewable 81 mg PO DAILY cyclobenzaprine 10 mg Tablet 10 mg PO BID PRN naloxone [Narcan] 4 mg/actuation Mccune,Non-Aerosol 4 mg INTRANASAL Q3M PRN pantoprazole 40 mg tablet,delayed release (DR/EC) 40 mg PO DAILY gabapentin 100 mg tablet 200 mg PO QHS metoprolol succinate 50 mg tablet extended release 24 hr 50 mg PO DAILY mirtazapine 7.5 mg tablet 7.5 mg PO QHS buprenorphine HCl [Belbuca] 150 mcg film 300 mcg buccal Q12H furosemide 80 mg tablet 80 mg PO BID magnesium oxide 400 MG tablet 400 mg PO DAILY Qty: 180 duloxetine [Cymbalta] 30 MG capsule,delayed release(DR/EC) 60 mg PO DAILY docusate sodium [Colace] 100 MG capsule 100 mg PO BID PRN PRN cholecalciferol (vitamin D3) 1,000 UNITS tablet 1,000 units PO BID fentanyl 37.5 mcg/hour patch 72 hour 1 patch transdermal Q72H Patient Comments: APPLY 1 PATCH TO CLEAN, DRY SKIN FOR 72 HOURS THEN REMOVE, DISPOSE OF PROPERLY ferrous sulfate 325 mg (65 mg iron) tablet 325 mg PO DAILY fluoxetine 10 mg capsule 10 mg PO DAILY Patient Comments: TAKE ONE CAPSULE BY MOUTH EVERY DAY allopurinol 100 mg tablet 100 mg PO DAILY Patient Comments: TAKE ONE TABLET BY MOUTH EVERY DAY calcium carbonate [Oyster Shell Calcium 500] 500 mg calcium (1,250 mg) Tablet 500 mg PO TID HPI General Mode of arrival: EMS . Date/Time Provider Initiated Documentation: 01/06/25 10:00 . Limitations to Documentation: no limitations . Information obtained by: patient, EMS and old records reviewed . HPI Narrative: HISTORY OF PRESENT ILLNESS This is a 74-year-old female patient with a history of osteoporosis, a recent history of left femoral IT fracture, CKD stage III, HFrEF, mitral valve regurgitation status postrepair, who presents to the emergency room for evaluation of a fall. She experienced a fall this morning while attempting to rise from her couch. She reports no dizziness or loss of consciousness associated with the incident. The fall occurred as she was reaching for the handle of her stationary bike, which is positioned on a mat. She landed on her right hip and did not sustain any head injuries. She reports no neck pain but does report numbness in her right leg accompanied by significant pain. She is not experiencing any lower leg pain, nor discomfort in her knee and thigh. The pain appears to radiate downwards. She rates her current pain level as 10 on a scale of 1 to 10. She has a known al lergy to CODEINE and is uncertain about her tolerance to morphine or Dilaudid. She has previously tolerated fentanyl without issue. She was transported by EMS, received fentanyl IV. Related Data Home Medications ?Medication ?Instructions ?Recorded ?Confirmed duloxetine 30 mg capsule,delayed 60 mg PO DAILY 01/01/15 01/06/25 release (Cymbalta) docusate sodium 100 mg capsule 100 mg PO BID PRN PRN 03/31/16 01/06/25 (Colace) cholecalciferol (vitamin D3) 25 1,000 units PO BID 11/03/16 01/06/25 mcg (1,000 unit) tablet magnesium oxide 400 mg (241.3 mg 400 mg PO DAILY #180 tab-caps 11/04/16 01/06/25 magnesium) tablet aspirin 81 mg chewable tablet 81 mg PO DAILY 07/07/19 01/06/25 mirtazapine 7.5 mg tablet 7.5 mg PO QHS 02/04/21 01/06/25 metoprolol succinate 50 mg 50 mg PO DAILY 05/18/21 01/06/25 tablet,extended release 24 hr cyclobenzaprine 10 mg tablet 10 mg PO BID PRN 08/23/21 01/06/25 naloxone 4 mg/actuation nasal 4 mg intranasal Q3M PRN 08/23/21 01/06/25 spray (Narcan) pantoprazole 40 mg tablet,delayed 40 mg PO DAILY 03/19/23 01/06/25 release buprenorphine HCl 150 mcg buccal 300 mcg buccal Q12H 12/03/24 01/06/25 film (Belbuca) furosemide 80 mg tablet 80 mg PO BID 12/03/24 01/06/25 gabapentin 100 mg tablet 200 mg PO QHS 12/03/24 01/06/25 allopurinol 100 mg tablet 100 mg PO DAILY 01/06/25 01/06/25 calcium carbonate (Oyster Shell 500 mg PO TID 01/06/25 01/06/25 Calcium 500) fentanyl 37.5 mcg/hour transdermal 1 patch transdermal Q72H 01/06/25 01/06/25 patch ferrous sulfate 325 mg (65 mg 325 mg PO DAILY 01/06/25 01/06/25 iron) tablet fluoxetine 10 mg capsule 10 mg PO DAILY 01/06/25 01/06/25 Allergies Allergy/AdvReac Type Severity Reaction Status Date / Time oxycodone Allergy Mild Other (See Verified 01/06/25 09:59 Comment) aripiprazole (From Abilify) Allergy Other (See Verified 01/06/25 09:59 Comment) codeine AdvReac Mild vomiting Verified 01/06/25 09:59 acetaminophen (From Tylenol) AdvReac Other (See Verified 01/06/25 09:59 Comment) General Stated Complaint: Orthopedic SHY: 3 Exam Narrative Exam Narrative: Gen: Awake and alert, in no apparent distress HEENT: Non-icteric sclera, PERRL, scalp atraumatic Neck: Supple, no cervical spine tenderness or step-offs Lungs: No apparent respiratory distress, normal respiratory effort. CV: Appears well perfused, strong distal pulses Abdomen: Non-distended, soft MSK: Moves 4 extremities without apparent limitation in ROM with the exception of her right lower extremity, which is painful with movement, and appears shortened and internally rotated. She has tenderness to palpation of the lateral aspect of the right hip, no instability of the pelvis is appreciated. The remainder of her right lower extremity examination is without deformity, tenderness, or external signs of trauma. Skin: Visualized skin without rashes, cyanosis. Neuro: No obvious focal deficits or facial asymmetry. Speaks in full, clear sentences. Psych: Appropriate for situation. Course Vital Signs Vital signs: Vital Signs Temperature 36.9 C 01/06/25 09:52 Pulse 75 01/06/25 09:52 Respiratory Rate 17 01/06/25 09:52 Blood Pressure 123/74 01/06/25 09:52 Pulse Oximetry 98 01/06/25 09:52 Temperature 36.9 C 01/06/25 09:52 Temperature Source Tympanic 01/06/25 09:52 Pulse 75 04/22/25 09:52 Respiratory Rate 17 01/06/25 09:52 Blood Pressure 123/74 01/06/25 09:52 Blood Pressure Position Sitting 01/06/25 09:52 Pulse Oximetry 98 01/06/25 09:52 Oxygen Delivery Method Room Air 01/06/25 09:52 Oxygen Flow Rate 0 01/06/25 09:52 Pain Level 10 01/06/25 09:52 Medical Decision Making This is a 74-year-old female patient presenting for evaluation after a fall with right hip injury. Differential includes but is not limited to fracture, dislocation, sprain/strain, contusion. The patient at this time does not have any tenderness to palpation of the lumbar spine nor step-offs, though certainly lumbar compression fracture was considered. Reassuringly the patient did not strike her head, lose consciousness, or have neurodeficits that increase my concern for intracranial hemorrhage. She does not take anticoagulants. This was a mechanical fall, and was not preceded by any syncope, dizziness, or chest pain, and I have a low concern for medical etiology of her fall at this time. We will obtain an x-ray of the affected right hip and pelvis, though certainly if this patient had a normal x-ray she would require CT imaging for occult fracture. Given her allergies to codeine and Tylenol I will provide the patient with a dose of intravenous fentanyl for initial pain management. Will obtain basic laboratory studies to include CBC, CMP, magnesium, and INR. - I reviewed the patient's laboratory studies, which show no leukocytosis, stable anemia and no thrombocytopenia. The chemistries show no electrolyte derangements, her kidney function is at her baseline with a BUN of 41 creatinine of 2.9, no liver dysfunction and the INR is 1.0. She did ultimately require ketamine pain dosing as well as Flexeril for pain that was not responsive to doses of fentanyl. I reviewed the patient's x-ray imaging, which shows a right comminuted femoral neck fracture. I discussed this case with our anesthesiologist and orthopedics, and given her multiple medical comorbidities including cardiac disease, they feel that she would be better served at a tertiary care facility, and so I consulted [facility] orthopedics. Dr. Limon with [facility] graciously accepted but unfortunately they do not have a bed for 24 to 48 hours. Their orthopedic doctor feels that the surgery should be completed within 24 hours, and so I reached out to other hospitals. [facility] refused due to capacity, and I signed out care of this patient prior to final disposition. Calls are out going to both [place] and [facility]. Additionally, anesthesia has been paged as the patient's pain management could benefit from a block. All further care per the oncoming provider. Patricia Andino MD Quality:SDOH Health Related Social Needs: No Data to Display PFSH All Active Problems (Updated 01/06/25 @ 17:14 by Patricia Andino MD) Closed displaced fracture of right femoral neck (Acute) Closed intertrochanteric fracture of right femur (Acute 01/06/25) Orthostatic hypotension (Acute) Lumbosacral spondylosis without myelopathy (Acute) Tachycardia (Acute) Intertrochanteric fracture of left femur (Acute) Advance directive on file (Acute) Anemia (Chronic) Discharge planning issues (Acute) DVT prophylaxis (Acute) Closed left hip fracture (Acute) Compression fracture of lumbar vertebra (Acute) Cardiomyopathy, nonischemic (Acute) Chronic kidney disease, stage 3 (Acute) Osteoporosis (Chronic) Chronic systolic CHF (congestive heart failure) (Chronic) EF 35% ICD (implantable cardioverter-defibrillator) in place (Chronic) wizboo History of mitral valve repair (Chronic) Mitral regurgitation (Chronic) Dilated cardiomyopathy (Chronic) Compression fracture of body of thoracic vertebra (Acute) Viral infection (Acute) Elevated LFTs (Acute) Closed head injury (Acute) Hyponatremia (Acute) Acetaminophen overdose (Acute) Medical History Non-rheumatic mitral regurgitation (11/02/16) ICD (implantable cardioverter-defibrillator) in place (11/02/16) Cardiomyopathy, dilated, nonischemic (11/02/16) Anxiety DJD (degenerative joint disease) Depression History of tobacco use Paroxysmal atrial tachycardia Hx of human papillomavirus infection Compression fracture of thoracolumbar vertebra CHF (congestive heart failure) Constipation Poisoning by other nonopioid analgesics and antipyretics, not elsewhere classified, accidental (unintentional), initial encounter Hypomagnesemia GERD (gastroesophageal reflux disease) Cachexia Intertrigo History of traumatic fracture of hip SOB (shortness of breath) Chronic low back pain Flank pain Surgical History H/O mitral valve repair (11/02/16) Status post-operative repair of closed fracture of left hip Family History Mother Heart disease CHF Brother Heart disease suddenly Maternal Uncle Heart disease Multiple bypass surgeries Maternal Uncle Diabetes Father Hypertension Prostate cancer Social History Smoking/Tobacco Use Status: Former Tobacco Use Pack-years: 4 Tobacco: How many years used: 7 Smoking risk assessment performed?: Yes Alcohol Intake: former Drug use: Never Substance use type: does not use Household members: none Housing: apartment current occupation: Retired Pets and animals: Yes (they keep her active ) Pets and animals: cat(s) and dog(s) What type of physical activity do you participate in: walking and additional Details: stationary bike, light weights. Duration: 15-30 minutes/day Frequency: 1-2 times per week Do you feel safe at home: Yes Do you feel safe in your relationship?: Yes
[2025-01-06 10:08] LABS: Abs Immature Grans 0.04 10^3/uL (0.0-0.06); Absolute Basophil Count 0.08 10^3/uL (0.0-0.2); Absolute Eosinophil Count 0.18 10^3/uL (0.0-0.7); Absolute Lymphocyte Count 1.38 10^3/uL (1.2-3.4); Absolute Monocyte Count 0.49 10^3/uL (0.1-0.8); Absolute Neutrophil Count 6.09 10^3/uL (1.2-6.7); Eosinophils % 2.2 %; HCT 31.3 % (36.0-46.0); HGB 10.4 g/dL (11.2-15.7); Immature Grans % 0.5 %; Lymphocytes % 16.7 %; MCH 26.3 pg (27.0-33.0); MCHC 33.2 % (32.0-36.0); MCV 79 fL (80-95); MPV 12.5 fL (8.0-11.0); Monocytes % 5.9 %; Neutrophils % 73.7 %; Platelet Count 203 10^3/uL (130-400); RBC 3.96 10^6/uL (3.93-5.22); RDW 16.2 % (11.7-14.6); RDW-SD 46.5 fL; WBC 8.26 10^3/uL (4.4-10.8)
[2025-01-06] MEDS: fentaNYL 100 MCG/2 ML VIAL 50 MCG IVP (10:09)
[2025-01-06 10:18] LABS: Prothrombin Time 10.4 sec (9.1-11.1)
[2025-01-06 10:24] LABS: ALT 17 U/L (14-59); AST 21 U/L (15-37); Albumin 2.6 g/dL (3.4-5.0); Alkaline Phosphatase 253 U/L (46-116); Anion Gap 5.4 mmol/L (3-11); BUN 41 mg/dL (7-18); Bilirubin, Total 0.3 mg/dL (0.2-1.0); CO2 27.6 mmol/L (21.0-32.0); CREATININE 2.5 mg/dL (0.55-1.02); Calcium 8.4 mg/dL (8.5-10.1); Chloride 105 mmol/L (98-107); Estimated GFR 19.56 (mL/min/1.73m2); Glucose 97 mg/dL (74-106); Magnesium 1.9 mg/dL (1.8-2.4); Potassium 3.9 mmol/L (3.5-5.1); Sodium 138 mmol/L (136-145); Total Protein 6.7 g/dL (6.4-8.2)
[2025-01-06] MEDS: fentaNYL 100 MCG/2 ML VIAL IVP ×2 (10:50→16:47)
[2025-01-06] MEDS: Ketamine 500 MG/10 ML VIAL 13 MG IVP (11:15)
[2025-01-06] MEDS: Normal Saline 50 ML 100 ML (11:42)
--- NOTE | 2025-01-06 12:06 | W.ORTHOCONSU ---
Assessment and Plan Assessment and plan (1) Closed intertrochanteric fracture of right femur: Status: Acute Assessment and plan: 74-year-old female with displaced right hip intertrochanteric fracture with some superior femoral neck extension and notable varus angulation Case briefly reviewed with the emergency room doctor as I am in the office today, but not on-call or available really for surgery. Patient with multiple medical comorbidities, frail, low hemoglobin, low albumin, significant chronic kidney disease, and cardiac problems. Recommended reviewing potential hip surgery with our nurse anesthetists prior to admission in case this patient would be better served at tertiary care facility. They recommend transfer for surgery if possible. I will follow along. If other facilities cannot accommodate her, we could revisit potential surgery here. In the meanwhile, recommend multimodal pain control, DVT prophylaxis, and transfer for definitive hip fracture surgery elsewhere. PFSH All Active Problems (Updated 01/06/25 @ 16:09 by Ismael Jones MD) Closed intertrochanteric fracture of right femur (Acute 01/06/25) Orthostatic hypotension (Acute) Lumbosacral spondylosis without myelopathy (Acute) Tachycardia (Acute) Intertrochanteric fracture of left femur (Acute) Advance directive on file (Acute) Anemia (Chronic) Discharge planning issues (Acute) DVT prophylaxis (Acute) Closed left hip fracture (Acute) Compression fracture of lumbar vertebra (Acute) Cardiomyopathy, nonischemic (Acute) Chronic kidney disease, stage 3 (Acute) Osteoporosis (Chronic) Chronic systolic CHF (congestive heart failure) (Chronic) EF 35% ICD (implantable cardioverter-defibrillator) in place (Chronic) TotalTakeout History of mitral valve repair (Chronic) Mitral regurgitation (Chronic) Dilated cardiomyopathy (Chronic) Compression fracture of body of thoracic vertebra (Acute) Viral infection (Acute) Elevated LFTs (Acute) Closed head injury (Acute) Hyponatremia (Acute) Acetaminophen overdose (Acute) Medical History Non-rheumatic mitral regurgitation (11/02/16) ICD (implantable cardioverter-defibrillator) in place (11/02/16) Cardiomyopathy, dilated, nonischemic (11/02/16) Anxiety DJD (degenerative joint disease) Depression History of tobacco use Paroxysmal atrial tachycardia Hx of human papillomavirus infection Compression fracture of thoracolumbar vertebra CHF (congestive heart failure) Constipation Poisoning by other nonopioid analgesics and antipyretics, not elsewhere classified, accidental (unintentional), initial encounter Hypomagnesemia GERD (gastroesophageal reflux disease) Cachexia Intertrigo History of traumatic fracture of hip SOB (shortness of breath) Chronic low back pain Flank pain Surgical History H/O mitral valve repair (11/02/16) Status post-operative repair of closed fracture of left hip Family History Mother Heart disease CHF Brother Heart disease suddenly Maternal Uncle Heart disease Multiple bypass surgeries Maternal Uncle Diabetes Father Hypertension Prostate cancer Social History Smoking/Tobacco Use Status: Former Tobacco Use Pack-years: 4 Tobacco: How many years used: 7 Smoking risk assessment performed?: Yes Alcohol Intake: former Drug use: Never Substance use type: does not use Household members: none Housing: apartment current occupation: Retired Pets and animals: Yes (they keep her active ) Pets and animals: cat(s) and dog(s) What type of physical activity do you participate in: walking and additional Details: stationary bike, light weights. Duration: 15-30 minutes/day Frequency: 1-2 times per week Do you feel safe at home: Yes Do you feel safe in your relationship?: Yes Results Last Vital Signs Temp 98.4 F 01/06/25 09:52 Pulse 74 01/06/25 11:40 Resp 15 01/06/25 11:40 BP 118/78 01/06/25 11:39 Pulse Ox 96 01/06/25 11:40 Labs 01/06/25 10:00 01/06/25 10:00 Labs: Laboratory Results - last 24 hr 01/06/25 10:00 WBC 8.26 RBC 3.96 Hgb 10.4 L Hct 31.3 L MCV 79 L MCH 26.3 L MCHC 33.2 RDW 16.2 H Plt Count 203 MPV 12.5 H Immature Gran % 0.5 Neutrophils % 73.7 Lymphocytes % 16.7 Monocytes % 5.9 Eosinophils % 2.2 Basophils % 1.0 Nucleated RBC % 0.0 Absolute Neutrophils 6.09 Absolute Lymphocytes 1.38 Absolute Monocytes 0.49 Absolute Eosinophils 0.18 Absolute Basophils 0.08 PT 10.4 INR 1.0 Sodium 138 Potassium 3.9 Chloride 105 Carbon Dioxide 27.6 Anion Gap 5.4 BUN 41 H Creatinine 2.5 H Est GFR (CKD-EPI 2020) 19.56 Glucose 97 Calcium 8.4 L Magnesium 1.9 Total Bilirubin 0.3 AST 21 ALT 17 Alkaline Phosphatase 253 H Total Protein 6.7 Albumin 2.6 L
[2025-01-06] MEDS: Cyclobenzaprine 10 MG TAB 5 MG PO (12:52)
--- NOTE | 2025-01-06 14:00 | DI.RAD_ITS ---
Exam(s) XR FEMUR RT EXAM: XR FEMUR RT CLINICAL HISTORY: Surgical planning. TECHNIQUE: 2D digital imaging was performed. COMPARISON: No exams were available for comparison FINDINGS: Two views There is an acute angulated low femoral neck fracture which extends to involve the intertrochanteric region, as better seen on the CT scan. There no fractures lower down in the femur. No knee joint effusion. No osseous lesions. IMPRESSION: Right hip low femoral neck/intertrochanteric fracture. See CT report DATA REPOSITORY: RADIATION DOSE DELIVERED:
--- NOTE | 2025-01-06 14:00 | DI.CT_ITS ---
Exam(s) CT PELVIC WO EXAM: CT PELVIC WO CLINICAL HISTORY: R. femoral neck fracture, recons. TECHNIQUE: Imaging Protocol: Axial computed tomography images with coronal and sagittal reformatted images were created and reviewed CONTRAST MATERIAL: Intravenous: none Oral: None COMPARISON: No exams were available for comparison FINDING: PELVIS: OSSEOUS: There is an acute comminuted fracture of the mid-lower right femoral neck and the fracture a lso involves intertrochanteric region. There are fractures of the greater trochanter and avulsion fr acture of the lesser trochanter. There is displacement/angulation at the fracture site. There is al so a separate transverse fracture line at the mid aspect of the ipsilateral femoral neck. There mode rate degenerative changes in the hip. There are no fractures of the acetabulum and pubic rami. No e vidence of sacral fracture. Generalized osteopenia evident. There is hardware in the opposite-left hip from prior intertrochanteric fracture repair. No left hip fractures evident. SOFT TISSUES: There is moderate hematoma adjacent to the hip fracture. No evidence of significant in trapelvic hematoma nor free fluid. ANTERIOR ABDOMINAL WALL/GI:No evidence of significant anterior abdominal wall nor inguinal hernia in the pelvis evident.No obvious bowel obstruction. No evidence of appendicitis.No evidence of acute si gmoid diverticulitis.No free fluid in the pelvis. LYMPH NODES: There is no intrapelvic nor inguinal adenopathy. URINARY BLADDER: Moderately distended. REPRODUCTIVE: Age-appropriate. No adnexal masses. No free fluid in the pelvis.. IMPRESSION: 1. Comminuted displaced fracture of both the right femoral neck and the intertrochanteric region as d escribed above. There is moderate size hematoma adjacent to the fracture site. 2. No other fractures identified and no intrapelvic hematoma. 3. Hardware in the opposite-left hip from prior left hip intertrochanteric fracture. Called by myself to ER physician 01/06/2025 at 3:10 p.m. RADIATION DOSE DELIVERED: 195.62mGy.cm Total DLP DATA REPOSITORY: All CT scans at this facility are submitted to the National Radiology Data Registry (NRDR) Dose Index Registry (DIR) with the [employer] (ACR). RADIATION OPTIMIZATION: All CT scans at this facility use at least one of these dose optimization te chniques: automated exposure control; mA and/or kV adjustment per patient size (includes targeted exa ms where dose is matched to clinical indication); or iterative reconstruction.
--- NOTE | 2025-01-06 18:29 | ANES.NERVE_ITS ---
Nerve Block Single Injection Procedure Date and Time Date Performed: 01/06/25 Procedure Start: 18:17 Location Where Procedure Performed Procedure Location: Emergency Department Reason Performed: Acute Pain Management Pain Diagnosis: Hip Pain (right intertrochanteric fracture) Requesting Provider: Patricia Andino Timeout Performed Timeout Performed: Yes Monitoring Used ECG, Blood Pressure, SpO2 and See EMR for corresponding vital signs Sterility Sterility: Hand Hygiene, Surgical Cap, Surgical Mask, Sterile Gloves, Sterile Drape/Sheet and Chlorhexidine Sedation Given During Procedure Sedation Given (Indicate Dose Given): No Sedation given Patient Mental Status Patient Mental Status: Awake Nerve Block 1st Nerve Block: Laterality: Right Block Type: Fascia Iliaca Ultrasound Image Saved?: Yes Needle / Catheter Used: 100mm SonoPlex II Local Anesthetic Bolus (Indicate Dose Given): Lidocaine used for local infiltration of skin, Injected in 3-5ml increments after negative blood asp iration and Bupivacaine 0.25% Dose:: 20 ml Additives (Indicate Dose Given): None Ultrasound: Sterile probe cover and gel used Nerve Stimulator: Supplement to Ultrasound use and No twitch or parasthesia noted < 0.5 mA Paresthesia: None Post Procedure Pain score (0-10): 3 Procedure Tolerated: No Complications and Patient tolerated well Procedure Outcome: Successful Procedure Comment: Chart reviewed, no blood thinners.Post procedure, pain level down from 7 at rest to 3/10 wih some movement. states that it feels more relaxed. Performed By: Kacey Joshua
[2025-01-06] MEDS: Bupivacaine 0.25% Pres-Free 10 ML VIAL (18:45)
--- NOTE | 2025-01-06 18:52 | ED.PROG_ITS ---
Date of service: 01/06/25 Time of Service: 18:53 Medical Decision Making Patient has been signed out pending continued cough to area hospitals for transfer. She had been accepted to [facility] but could not be transferred for 2 days. Orthopedics recommending repair within 24 hours of possible. Patient did receive a nerve block performed by anesthesia for hip pain as it was difficult to control with IV medications. She has had good results from this. Dr. Vogt from [facility] has accepted the patient. We have notified [facility] and canceled her transfer there. Patient will go by BLS ambulance to [facility] for further management of her right intertrochanteric hip fracture. Discharge Plan Disposition Patient Disposition: Transfer-Acute Inpatient Care Specific Acute Inpt Facility: [facility] Condition: Stable Discharge Details Chief Complaint: Orthopedic Clinical Impression: Closed displaced fracture of right femoral neck, Chronic kidney disease, stage 3, Dilated cardiomyopathy, Mitral regurgitation, ICD (implantable cardioverter- defibrillator) in place, Chronic systolic CHF (congestive heart failure), Osteoporosis Primary Care Provider: Paula Vazquez ED Provider: Moshe Ravi [place] Meds and New Rx's Prescriptions: No Action aspirin 81 mg tablet,chewable 81 mg PO DAILY cyclobenzaprine 10 mg Tablet 10 mg PO BID PRN naloxone [Narcan] 4 mg/actuation [place],Non-Aerosol 4 mg INTRANASAL Q3M PRN pantoprazole 40 mg tablet,delayed release (DR/EC) 40 mg PO DAILY gabapentin 100 mg tablet 200 mg PO QHS metoprolol succinate 50 mg tablet extended release 24 hr 50 mg PO DAILY mirtazapine 7.5 mg tablet 7.5 mg PO QHS buprenorphine HCl [Belbuca] 150 mcg film 300 mcg buccal Q12H furosemide 80 mg tablet 80 mg PO BID magnesium oxide 400 MG tablet 400 mg PO DAILY Qty: 180 duloxetine [Cymbalta] 30 MG capsule,delayed release(DR/EC) 60 mg PO DAILY docusate sodium [Colace] 100 MG capsule 100 mg PO BID PRN PRN cholecalciferol (vitamin D3) 1,000 UNITS tablet 1,000 units PO BID fentanyl 37.5 mcg/hour patch 72 hour 1 patch transdermal Q72H Patient Comments: APPLY 1 PATCH TO CLEAN, DRY SKIN FOR 72 HOURS THEN REMOVE, DISPOSE OF PROPERLY ferrous sulfate 325 mg (65 mg iron) tablet 325 mg PO DAILY fluoxetine 10 mg capsule 10 mg PO DAILY Patient Comments: TAKE ONE CAPSULE BY MOUTH EVERY DAY allopurinol 100 mg tablet 100 mg PO DAILY Patient Comments: TAKE ONE TABLET BY MOUTH EVERY DAY calcium carbonate [Oyster Shell Calcium 500] 500 mg calcium (1,250 mg) Tablet 500 mg PO TID
--- NOTE | 2025-01-06 19:58 | NUR.NOTE ---
Nursing Note: [facility] nurse, Patricia, called for report, report given.
== END 2025-01-06 19:59 | disposition short-term general hospital (02) ==
PROVIDERS: Emergency Medicine; Emergency Provider Emergency Medicine; PCP Physician Assistant Medical
DX: S72.141A Displaced intertrochanteric fracture of right femur, initial encounter for closed fracture (principal); I13.0 Hypertensive heart and chronic kidney disease with heart failure and stage 1 through stage 4 chronic kidney disease, or unspecified chronic kidney disease; N18.30 Chronic kidney disease, stage 3 unspecified; I50.22 Chronic systolic (congestive) heart failure; I42.0 Dilated cardiomyopathy; Z95.810 Presence of automatic (implantable) cardiac defibrillator; Z79.82 Long term (current) use of aspirin; W08.XXXA Fall from other furniture, initial encounter; Y93.89 Activity, other specified; Y92.018 Other place in single-family (private) house as the place of occurrence of the external cause
CPT/HCPCS: 00123; 36415; 64447; 64450; 73552; 76942; 80053; 99284; 99285; 72192; 73502; 83735; 85025; 85610; J0665; J3010

== ENCOUNTER 2025-03-03 14:48 | Outpatient (REF) | payer MEDICARE, MEDICAID, SELFPAY ==
[2025-03-03 17:35] LABS: HCT 31.2 % (36.0-46.0); HGB 10.2 g/dL (11.2-15.7); MCH 30.3 pg (27.0-33.0); MCHC 32.7 % (32.0-36.0); MCV 93 fL (80-95); MPV 12.9 fL (8.0-11.0); Platelet Count 267 10^3/uL (130-400); RBC 3.37 10^6/uL (3.93-5.22); RDW 19.5 % (11.7-14.6); RDW-SD 66.1 fL; WBC 5.98 10^3/uL (4.4-10.8)
[2025-03-03 17:51] LABS: Iron 47 ug/dL (50-170); Total Iron Binding Capacity 160 ug/dL (250-450); Transferrin Sat 29 % (15-50)
[2025-03-03 18:04] LABS: Anion Gap 4.4 mmol/L (3-11); BUN 26 mg/dL (7-18); CO2 33.6 mmol/L (21.0-32.0); CREATININE 2.1 mg/dL (0.55-1.02); Calcium 8.8 mg/dL (8.5-10.1); Chloride 100 mmol/L (98-107); Estimated GFR 24.12 (mL/min/1.73m2); Ferritin 433 ng/mL (8-252); Glucose 85 mg/dL (74-106); Potassium 4.5 mmol/L (3.5-5.1); Sodium 138 mmol/L (136-145)
[2025-03-03 18:06] LABS: Vitamin D 25 Total 72 ng/mL (30-100)
[2025-03-03 18:56] LABS: NT-proBNP 5196 pg/mL (<300)
[2025-03-04 04:42] LABS: Vitamin B12 512 pg/mL (193-986)
== END 2025-03-03 14:49 | disposition home or self-care (01) ==
LOC: NCHCN 14:48
PROVIDERS: PCP Physician Assistant Medical; Visit Provider Physician Assistant Medical
DX: N18.30 Chronic kidney disease, stage 3 unspecified (principal); D64.9 Anemia, unspecified; I50.9 Heart failure, unspecified
CPT/HCPCS: 80048; 82306; 85027; 82607; 82728; 83540; 83550; 83880

== ENCOUNTER → 2025-06-03 08:44 | Outpatient (BNVA) | payer MEDICARE, MEDICAID, SELFPAY | PROVIDERS: PCP Physician Assistant Medical; Referring Provider Physician Assistant Medical; Visit Provider Registered Nurse | DX: I42.9 Cardiomyopathy, unspecified (principal); Z45.02 Encounter for adjustment and management of automatic implantable cardiac defibrillator | CPT/HCPCS: 93282 ==

== ENCOUNTER → 2025-09-02 14:51 | Outpatient (BNVA) | payer MEDICARE, MEDICAID, SELFPAY | PROVIDERS: PCP Physician Assistant Medical; Referring Provider Physician Assistant Medical; Visit Provider Student in an Organized Health Care Education/Training Program | DX: I42.0 Dilated cardiomyopathy (principal); Z45.02 Encounter for adjustment and management of automatic implantable cardiac defibrillator | CPT/HCPCS: 93282 ==